=== PATIENT | male | born 1970 | race African-American/Black ===

== ENCOUNTER 2018-12-17 12:54 | Inpatient (IN) | payer OTHER ==
[2018-12-17 15:00] VITALS: BMI 36.2
--- NOTE | 2018-12-17 15:24 | HP ---
CIWA Score Nausea/Vomitin Muscle Tremors: 2 Anxiety: 2 Agitation: 2 Paroxysmal Sweats: 2 Orientation: 1-Uncertain about Date Tacttile Disturbances: 1-Very Mild Itch/Numbness Auditory Disturbances: 1-Very Mild Visual Disturbances: 0-None Headache: 2-Mild CIWA-Ar Total Score: 15 - Admission Criteria OASAS Guidelines: Admission for Medically Managed Detox: Requires at least one of the followin. CIWA greater than 12 2. Seizures within the past 24 hours 3. Delirium tremens within the past 24 hours 4. Hallucinations within the past 24 hours 5. Acute intervention needed for co occurring medical disorder 6. Acute intervention needed for co occurring psychiatric disorder 7. Severe withdrawal that cannot be handled at a lower level of care (continued vomiting, continued diarrhea, abnormal vital signs) requiring intravenous medication and/or fluids 8. Admission ROS [facility] - HPI Chief Complaint: i need help to stop drinking alcohol and cocaine Allergies/Adverse Reactions: Allergies Allergy/AdvReac Type Severity Reaction Status Date / Time No Known Allergies Allergy Verified 12/17/18 14:36 History of Present Illness: this 48 years old male with alcohol and cocaine dependence,seeking detox, withdrawal symptom, last detox in 11/[facility] this morning refer for detox history of hypertension nicotine dependence 1/2 pack,do not want any nicotine replacement syncope alcohol related bipolar disorder,ptsd,last med 1 week ago longest period of sobriety 15 years plan for rehab after detox Exam Limitations: No Limitations - Ebola screening Have you traveled outside of the country in the last 21 days: No Have you had contact with anyone from an Ebola affected area: No - Review of Systems Constitutional: Loss of Appetite, Malaise, Night Sweats, Changes in sleep, Weakness EENT: reports: Nose Congestion Respiratory: reports: No Symptoms reported Cardiac: reports: Palpitations GI: reports: Diarrhea, Nausea, Abdominal cramping : reports: No Symptoms Reported Musculoskeletal: reports: Back Pain, Muscle Pain Integumentary: reports: Dryness Neuro: reports: Headache, Tremors Endocrine: reports: No Symptoms Reported Hematology: reports: No Symptoms Reported Psychiatric: reports: No Sypmtoms Reported, Judgement Intact, Mood/Affect Appropiate, Orientated x3, Depressed, other (bipolar disorder,ptsd) Patient History - Patient Medical History Hx Anemia: No Hx Asthma: No Hx Chronic Obstructive Pulmonary Disease (COPD): No Hx Cancer: No Hx Cardiac Disorders: No Hx Congestive Heart Failure: No Hx Hypertension: Yes (on med) Hx Hypercholesterolemia: No Hx Pacemaker: No HX Cerebrovascular Accident: No Hx Seizures: No Hx Dementia: No Hx Diabetes: No Hx Gastrointestinal Disorders: No Hx Liver Disease: No Hx Genitourinary Disorders: No Hx Sexually Transmitted Disorders: No Hx Renal Disease (ESRD): No Hx Thyroid Disease: No Hx Human Immunodeficiency Virus (HIV): No (last 08/27 negative ) Hx Hepatitis C: No Hx Depression: No Hx Suicide Attempt: Yes (walk infront of the bus) Hx Bipolar Disorder: Yes (no med) Hx Schizophrenia: No Other Medical History: no sucicidal,no homicidal - Patient Surgical History Past Surgical History: No - PPD History Previous Implant?: Yes Documented Results: Negative w/o proof Implanted On Prior [facility] Admission?: No PPD to be Administered?: Yes - Smoking Cessation Smoking history: Current every day smoker Have you smoked in the past 12 months: Yes Aproximately how many cigarettes per day: 10 Cigars Per Day: 0 Hx Chewing Tobacco Use: No Initiated information on smoking cessation: Yes 'Breaking Loose' booklet given: 12/17/18 - Substance & Tx. History Hx Alcohol Use: Yes Hx Substance Use: Yes Hx Substance Use Treatment: Yes (jamee kirby 10/29 ,completed) - Substances abused Cocaine Substance route: Smoking Frequency: Daily Amount used: 7oo$ Age of first use: 27 Date of last use: 12/17/18 Alcohol Substance route: Oral Frequency: Daily Amount used: 2 pints of cognac Age of first use: 14 Date of last use: 12/16/18 Family Disease History - Family Disease History Family History: Denies Admission Physical Exam S - Vital Signs Vital Signs: Vital Signs - 24 hr 12/17/18 12/17/18 14:40 15:13 Temperature 98 F 98 F Pulse Rate 88 88 Respiratory 18 18 Rate Blood Pressure 136/88 136/88 - Physical General Appearance: Yes: Moderate Distress, Tremorous, Irritable, Sweating, Anxious HEENTM: Yes: Normal ENT Inspection, JANEEN, Pharynx Normal Respiratory: Yes: Within Normal Limits, Lungs Clear, Normal Breath Sounds Neck: Yes: Within Normal Limits, Supple, Trachea in good position Breast: Yes: Within Normal Limits Cardiology: Yes: Within Normal Limits, Regular Rhythm, Regular Rate, S1, S2 Abdominal: Yes: Within Normal Limits, Normal Bowel Sounds, Non Tender, Flat, Soft Genitourinary: Yes: Within Normal Limits Back: Yes: Muscle Spasm Extremities: Yes: Within Normal Limits, Normal Range of Motion, Tremors Neurological: Yes: mechanical cad designer II-XII NML intact, Fully Oriented, Motor Strength 5/5 Integumentary: Yes: Dry, Petechiae - Diagnostic (1) Alcohol dependence with uncomplicated withdrawal Current Visit: Yes Status: Acute (2) Cocaine dependence Current Visit: Yes Status: Acute (3) Syncope Current Visit: Yes Status: Acute (4) Nicotine dependence Current Visit: Yes Status: Acute (5) Bipolar disorder Current Visit: Yes Status: Acute (6) PTSD (post-traumatic stress disorder) Current Visit: Yes Status: Acute (7) Chest pain Current Visit: Yes Status: Acute Cleared for Admission S - Detox or Rehab [facility] Level of Care: Medically Managed Detox Regimen/Protocol: Librium Breathalyzer - Breathalyzer Breathalyzer: 0 Urine Drug Screen - Test Device Lot number: [id number] Expiration date: 08/09/20 - Control Is test valid?: Yes - Results Drug screen NEGATIVE: No Urine drug screen results: MALGORZATA-Cocaine, BZO-Benzodiazepines Inpatient Rehab Admission - Rehab Decision to Admit Inpatient rehab admission?: No
[2018-12-17] MEDS ORDERED: MAGNESIUM CITRATE 300 ML BOTTLE PO PRN (15:38)
[2018-12-17] MEDS ORDERED: BISMUTH SUBSALICYLATE 262 MG/15 ML BTL PO PRN (15:38)
[2018-12-17] MEDS ORDERED: hydrOXYzine PAMOATE 25 MG CAPSULE (FP) PO PRN (15:38)
[2018-12-17] MEDS ORDERED: MENTHOL/PHENOL 1 EACH UD MM PRN (15:38)
[2018-12-17] MEDS ORDERED: MAGNESIUM HYDROX 2400MG/30ML ORAL SUSPENSION 30 ML CUP PO PRN (15:38)
[2018-12-17] MEDS ORDERED: MAG HYDROX/AL HYDROX/SIMETH 30 ML UNIT-DOSE CUP PO PRN (15:38)
[2018-12-17] MEDS ORDERED: MELATONIN 5 MG TABLETS PO PRN (15:38)
[2018-12-17] MEDS ORDERED: METHOCARBAMOL 500 MG TABLET PO PRN (15:38)
[2018-12-17] MEDS ORDERED: chlordiazePOXIDE HCL 25 MG CAPSULE PO PRN (15:38)
[2018-12-17] MEDS ORDERED: ACETAMINOPHEN 325 MG TABLET (FP) PO PRN ×2 (15:38)
[2018-12-17] MEDS ORDERED: hydrOXYzine HCL 25 MG TABLET (FP) PO PRN (18:56)
[2018-12-17] MEDS: THIAMINE HCL 100 MG TABLET (FP) PO SCH (22:19)
[2018-12-17] MEDS: chlordiazePOXIDE HCL 25 MG CAPSULE PO SCH (22:20)
[2018-12-18] MEDS: chlordiazePOXIDE HCL 25 MG CAPSULE PO SCH ×4 (05:56→22:57)
[2018-12-18 09:54] LABS: ALBUMIN 3.2 g/dl (3.4-5.0); ALK PHOS 67 U/L (45-117); ANION GAP 6 MMOL/L (8-16); BILIRUBIN,TOTAL 0.3 mg/dL (0.2-1); BLOOD UREA NITROGEN 14 mg/dL (7-18); CALCIUM 8.8 mg/dL (8.5-10.1); CHLORIDE 108 mmol/L (98-107); CO2 28 mmol/L (21-32); CREATININE 0.9 mg/dL (0.55-1.3); GLUCOSE,RANDOM 93 mg/dL (74-106); POTASSIUM 4.2 mmol/L (3.5-5.1); SGOT/AST 19 U/L (15-37); SGPT/ALT 26 U/L (13-61); SODIUM 141 mmol/L (136-145); TOT PROT 6.8 g/dl (6.4-8.2)
[2018-12-18 10:07] LABS: HEMATOCRIT 37.8 % (35.4-49); HEMOGLOBIN 12.4 GM/dL (11.7-16.9); MCH 30.1 pg (25.7-33.7); MCHC 32.8 g/dl (32.0-35.9); MEAN CELL VOLUME 91.7 fl (80-96); MEAN PLT VOLUME 9.1 fl (7.5-11.1); PLATELET COUNT 284 K/MM3 (134-434); RBC 4.12 M/mm3 (4.00-5.60); RDW 14.8 % (11.9-15.9); WHITE BLOOD COUNT 6.6 K/mm3 (4.0-10.0)
[2018-12-18] MEDS: ASPIRIN COATED 81 MG TABLET.EC PO SCH (10:09)
[2018-12-18] MEDS: PRENATAL VITAMINS W/ FOLIC ACID TABLET (FP) PO SCH (10:09)
[2018-12-18 11:16] LABS: SICKLE CELL SCREEN NEGATIVE (NEGATIVE)
--- NOTE | 2018-12-18 13:56 | CONSULT ---
[facility] Psychiatric Consult - Data Date of interview: 12/18/18 Admission source: [facility]
--- NOTE | 2018-12-18 14:32 | PN ---
S CIWA - CIWA Score Nausea/Vomitin-Mild Nausea/No Vomiting Muscle Tremors: 2 Anxiety: 2 Agitation: 2 Paroxysmal Sweats: 1-Minimal Palms Moist Orientation: 1-Uncertain about Date Tacttile Disturbances: 0-None Auditory Disturbances: 0-None Visual Disturbances: 0-None Headache: 2-Mild CIWA-Ar Total Score: 11 S Progress Note (SOAP) Subjective: tremor restlessness but afternoon that the patient can out of bed social with peers in day room Objective: 12/18/18 14:31 Vital Signs Temperature 98.6 F 12/18/18 13:49 Pulse Rate 74 12/18/18 13:49 Respiratory Rate 20 12/18/18 13:49 Blood Pressure 128/86 12/18/18 13:49 O2 Sat by Pulse Oximetry (%) Laboratory Last Values WBC 6.6 K/mm3 (4.0-10.0) 12/18/18 07:00 RBC 4.12 M/mm3 (4.00-5.60) 12/18/18 07:00 Hgb 12.4 GM/dL (11.7-16.9) 12/18/18 07:00 Hct 37.8 % (35.4-49) 12/18/18 07:00 MCV 91.7 fl (80-96) 12/18/18 07:00 MCH 30.1 pg (25.7-33.7) 12/18/18 07:00 MCHC 32.8 g/dl (32.0-35.9) 12/18/18 07:00 RDW 14.8 % (11.9-15.9) 12/18/18 07:00 Plt Count 284 K/MM3 (134-434) 12/18/18 07:00 MPV 9.1 fl (7.5-11.1) 12/18/18 07:00 Sickle Cell Screen Negative (NEGATIVE) 12/18/18 07:00 Sodium 141 mmol/L (136-145) 12/18/18 07:00 Potassium 4.2 mmol/L (3.5-5.1) 12/18/18 07:00 Chloride 108 mmol/L (98-107) H 12/18/18 07:00 Carbon Dioxide 28 mmol/L (21-32) 12/18/18 07:00 Anion Gap 6 MMOL/L (8-16) L 12/18/18 07:00 BUN 14 mg/dL (7-18) 12/18/18 07:00 Creatinine 0.9 mg/dL (0.55-1.3) 12/18/18 07:00 Creat Clearance w eGFR 89.69 (>60) 12/18/18 07:00 Random Glucose 93 mg/dL (74-106) 12/18/18 07:00 Calcium 8.8 mg/dL (8.5-10.1) 12/18/18 07:00 Total Bilirubin 0.3 mg/dL (0.2-1) 12/18/18 07:00 AST 19 U/L (15-37) 12/18/18 07:00 ALT 26 U/L (13-61) 12/18/18 07:00 Alkaline Phosphatase 67 U/L (45-117) 12/18/18 07:00 Total Protein 6.8 g/dl (6.4-8.2) 12/18/18 07:00 Albumin 3.2 g/dl (3.4-5.0) L 12/18/18 07:00 RPR Titer Nonreactive (NONREACTIVE) 12/18/18 07:00 lab noted Assessment: 12/18/18 14:32 withdrawal sx Plan: continue detox
[2018-12-18 16:23] LABS: PH,URINE 5.5 (5.0-8.0); URINE APPEARANCE CLEAR; URINE BILIRUBIN NEGATIVE (NEGATIVE); URINE COLOR YELLOW; URINE GLUCOSE (UA) NEGATIVE (NEGATIVE); URINE KETONE NEGATIVE (NEGATIVE); URINE LEUK ESTERASE NEGATIVE (NEGATIVE); URINE NITRITE NEGATIVE (NEGATIVE); URINE PROTEIN NEGATIVE (NEGATIVE); URINE UROBILINOGEN 0.2 mg/dL (0.2-1.0)
--- NOTE | 2018-12-18 18:44 | CONSULT ---
[facility] Psychiatric Consult - Data Date of interview: 12/18/18 Admission source: [facility] Identifying data: First admission to [facility] for this 48 y/o AA male self- referred for detoxification treatment (alcohol, cocaine). Examined at [address] [place] [address]. Patient is , a father of one, domiciled, unemployed and supported on Public Assistance. Substance Abuse History: Confirmed by the patient in this interview. Details in current [facility] report as follows : Smoking history: Current every day smoker. Have you smoked in the past 12 months: Yes. Aproximately how many cigarettes per day: 10. Cigars Per Day: 0. Hx Chewing Tobacco Use: No. Initiated information on smoking cessation: Yes. 'Breaking Loose' booklet given: . - Substance & Tx. History. Hx Alcohol Use: Yes. Hx Substance Use: Yes. Hx Substance Use Treatment: Yes (jamee kirby 10/29 ,completed). - Substances abused. Cocaine. Substance route: Smoking. Frequency: Daily. Amount used : 7oo$. Age of first use: 27. Date of last use: 12/17/18. Alcohol. Substance route: Oral. Frequency: Daily. Amount used: 2 pints of cognac. Age of first use: 14. Date of last use: 12/16/18 Medical History: Obesity, hypertension and a history of myocardial infarction ( 2016). Psychiatric History: Patient endorses a history of one psychiatric hospitalization years ago at a facility in [facility] (name not recalled by patient). Diagnosed with Bipolar Disorder and PTSD). Mr Wang admits to being prescribed psychotropic medications by [facility] ([address]) in the [place]. Does not recall their names ( review of recent pharmacy claims yield evidence of scripts for depakote 500 mg/ 60 tab/30 days + risperdal 1 mg/60 tab/30 days + trazodone 100 mg/hs/30 tab ( + 12/12/18) at [facility]. Concordant with self-reported diagnosis. Patient denies history of suicide attempts. Physical/Sexual Abuse/Trauma History: Patient declines to discuss this domain. Additional Comment: Urine drug screen results: MALGORZATA-Cocaine, BZO- Benzodiazepines. Noted. Mental Status Exam - Mental Status Exam Alert and Oriented to: Time, Place, Person Cognitive Function: Good Patient Appearance: Unkempt, Disheveled Mood: Nervous, Withdrawn Affect: Mood Congruent, Constricted Patient Behavior: Fatigued, Talkative, Appropriate, Cooperative Speech Pattern: Clear, Appropriate Voice Loudness: Normal Thought Process: Goal Oriented Thought Disorder: Not Present Hallucinations: Denies Suicidal Ideation: Denies Homicidal Ideation: Denies Insight/Judgement: Poor Sleep: Fair Appetite: Good Muscle strength/Tone: Normal Gait/Station: Normal Psychiatric Findings - Problem List ([place] 1, 2,3) (1) Alcohol dependence with uncomplicated withdrawal Current Visit: Yes Status: Acute (2) Cocaine dependence Current Visit: Yes Status: Chronic (3) Nicotine dependence Current Visit: Yes Status: Chronic (4) Bipolar disorder Current Visit: Yes Status: Chronic Comment: As per history (reported by patient). (5) PTSD (post-traumatic stress disorder) Current Visit: Yes Status: Chronic Comment: Self-report. No symptoms elicited. (6) Non-compliance Current Visit: Yes Status: Chronic - Initial Treatment Plan Initial Treatment Plan: Psychoeducation. Sleep hygiene. Support. Detoxification in progress. Resume medications (on 12/19/18) : risperdal 1 mg po bid + depakote 500 mg po bid. Trazodone held. Side effects/benefits of these formulations are discussed with the patient. This includes, in particular, the risk for abnormal involuntary movements, akathisia, tardive dyskinesia, neuroleptic malignant syndrome, galactorrhea, gynecomastia, sexual dysfunction, blood dyscrasias, alteration of liver enzymes, sedation and cardiac adverse events. Mr Wang endorses history of good tolerability to this regimen and he insisits on their insertion in the current medication protocol. Consent (verbal) granted to . Valproic acid level requested. labs reviewed : normal CBC and LFTS. Observation.
[2018-12-18] MEDS: THIAMINE HCL 100 MG TABLET (FP) PO SCH (22:56)
[2018-12-19] MEDS: chlordiazePOXIDE HCL 25 MG CAPSULE PO SCH ×3 (05:27→17:36)
[2018-12-19] MEDS: ASPIRIN COATED 81 MG TABLET.EC PO SCH (10:25)
[2018-12-19] MEDS: risperiDONE 1 MG TABLET (FP) PO SCH ×2 (10:25→22:17)
[2018-12-19] MEDS: DIVALPROEX SODIUM 500 MG TABLET E.C. PO SCH ×2 (10:25→22:17)
[2018-12-19] MEDS: PRENATAL VITAMINS W/ FOLIC ACID TABLET (FP) PO SCH (10:25)
--- NOTE | 2018-12-19 13:27 | PN ---
S CIWA - CIWA Score Nausea/Vomitin-Mild Nausea/No Vomiting Muscle Tremors: 2 Anxiety: 2 Agitation: 1-Slight > Activity Paroxysmal Sweats: 1-Minimal Palms Moist Orientation: 1-Uncertain about Date Tacttile Disturbances: 0-None Auditory Disturbances: 0-None Visual Disturbances: 0-None Headache: 0-None Present CIWA-Ar Total Score: 8 BHS Progress Note (SOAP) Subjective: feeling ok today well-rested social with peers in day room Objective: 12/19/18 13:29 Vital Signs Temperature 96.7 F L 12/19/18 13:17 Pulse Rate 98 H 12/19/18 13:17 Respiratory Rate 18 12/19/18 13:17 Blood Pressure 134/94 12/19/18 13:17 O2 Sat by Pulse Oximetry (%) Laboratory Last Values WBC 6.6 K/mm3 (4.0-10.0) 12/18/18 07:00 RBC 4.12 M/mm3 (4.00-5.60) 12/18/18 07:00 Hgb 12.4 GM/dL (11.7-16.9) 12/18/18 07:00 Hct 37.8 % (35.4-49) 12/18/18 07:00 MCV 91.7 fl (80-96) 12/18/18 07:00 MCH 30.1 pg (25.7-33.7) 12/18/18 07:00 MCHC 32.8 g/dl (32.0-35.9) 12/18/18 07:00 RDW 14.8 % (11.9-15.9) 12/18/18 07:00 Plt Count 284 K/MM3 (134-434) 12/18/18 07:00 MPV 9.1 fl (7.5-11.1) 12/18/18 07:00 Sickle Cell Screen Negative (NEGATIVE) 12/18/18 07:00 Sodium 141 mmol/L (136-145) 12/18/18 07:00 Potassium 4.2 mmol/L (3.5-5.1) 12/18/18 07:00 Chloride 108 mmol/L (98-107) H 12/18/18 07:00 Carbon Dioxide 28 mmol/L (21-32) 12/18/18 07:00 Anion Gap 6 MMOL/L (8-16) L 12/18/18 07:00 BUN 14 mg/dL (7-18) 12/18/18 07:00 Creatinine 0.9 mg/dL (0.55-1.3) 12/18/18 07:00 Creat Clearance w eGFR 89.69 (>60) 12/18/18 07:00 Random Glucose 93 mg/dL (74-106) 12/18/18 07:00 Calcium 8.8 mg/dL (8.5-10.1) 12/18/18 07:00 Total Bilirubin 0.3 mg/dL (0.2-1) 12/18/18 07:00 AST 19 U/L (15-37) 12/18/18 07:00 ALT 26 U/L (13-61) 12/18/18 07:00 Alkaline Phosphatase 67 U/L (45-117) 12/18/18 07:00 Total Protein 6.8 g/dl (6.4-8.2) 12/18/18 07:00 Albumin 3.2 g/dl (3.4-5.0) L 12/18/18 07:00 Urine Color Yellow 12/18/18 10:15 Urine Appearance Clear 12/18/18 10:15 Urine pH 5.5 (5.0-8.0) 12/18/18 10:15 Ur Specific [place] 1.020 (1.010-1.035) 12/18/18 10:15 Urine Protein Negative (NEGATIVE) 12/18/18 10:15 Urine Glucose (UA) Negative (NEGATIVE) 12/18/18 10:15 Urine Ketones Negative (NEGATIVE) 12/18/18 10:15 Urine Blood Negative (NEGATIVE) 12/18/18 10:15 Urine Nitrite Negative (NEGATIVE) 12/18/18 10:15 Urine Bilirubin Negative (NEGATIVE) 12/18/18 10:15 Urine Urobilinogen 0.2 mg/dL (0.2-1.0) 12/18/18 10:15 Ur Leukocyte Esterase Negative (NEGATIVE) 12/18/18 10:15 Valproic Acid 3.6 ug/ml (50-100) L 12/19/18 07:00 RPR Titer Nonreactive (NONREACTIVE) 12/18/18 07:00 lab noted Assessment: 12/19/18 13:30 alcohol withdrawal sx Plan: continue detox
[2018-12-19] MEDS: chlordiazePOXIDE HCL 10 MG CAPSULE PO SCH (22:17)
[2018-12-19] MEDS: THIAMINE HCL 100 MG TABLET (FP) PO SCH (22:17)
[2018-12-19] MEDS ORDERED: chlordiazePOXIDE HCL 10 MG CAPSULE PO PRN (23:00)
[2018-12-20] MEDS: chlordiazePOXIDE HCL 10 MG CAPSULE PO SCH ×3 (05:13→16:28)
[2018-12-20] MEDS: IBUPROFEN 400 MG TABLET (FP) PO PRN ×2 (07:29→16:27)
[2018-12-20] MEDS: DIVALPROEX SODIUM 500 MG TABLET E.C. PO SCH ×2 (10:11→22:28)
[2018-12-20] MEDS: PRENATAL VITAMINS W/ FOLIC ACID TABLET (FP) PO SCH (10:11)
[2018-12-20] MEDS: ASPIRIN COATED 81 MG TABLET.EC PO SCH (10:11)
[2018-12-20] MEDS: risperiDONE 1 MG TABLET (FP) PO SCH ×2 (10:11→22:28)
--- NOTE | 2018-12-20 10:26 | EKG ---
Test Reason : Blood Pressure : / mmHG Vent. Rate : 083 BPM Atrial Rate : 083 BPM P-R Int : 150 ms QRS Dur : 086 ms QT Int : 400 ms P-R-T Axes : 052 -21 006 degrees QTc Int : 470 ms SINUS RHYTHM WITH OCCASIONAL PREMATURE VENTRICULAR COMPLEXES OTHERWISE NORMAL ECG NO PREVIOUS ECGS AVAILABLE Confirmed by YOLANDA STACK, MUKUL ([id number]) on 12/20/2018 10:26:39 AM Referred By: Confirmed By:MUKUL GUERRERO MD
--- NOTE | 2018-12-20 16:40 | PN ---
BHS Progress Note (SOAP) Subjective: Body Aches, Fatigue. Objective: PATIENT A & O X 3. IN NO ACUTE DISTRESS. 12/20/18 16:39 Vital Signs Temperature 96.7 F L 12/20/18 13:10 Pulse Rate 90 12/20/18 13:10 Respiratory Rate 18 12/20/18 13:10 Blood Pressure 142/95 12/20/18 13:10 O2 Sat by Pulse Oximetry (%) Laboratory Tests 12/18/18 12/18/18 12/18/18 07:00 07:00 07:00 WBC 6.6 RBC 4.12 Hgb 12.4 Hct 37.8 MCV 91.7 MCH 30.1 MCHC 32.8 RDW 14.8 Plt Count 284 MPV 9.1 Sickle Cell Screen Negative Sodium 141 Potassium 4.2 Chloride 108 H Carbon Dioxide 28 Anion Gap 6 L BUN 14 Creatinine 0.9 Creat Clearance w eGFR 89.69 Random Glucose 93 Calcium 8.8 Total Bilirubin 0.3 AST 19 ALT 26 Alkaline Phosphatase 67 Total Protein 6.8 Albumin 3.2 L Urine Color Urine Appearance Urine pH Ur Specific [place] Urine Protein Urine Glucose (UA) Urine Ketones Urine Blood Urine Nitrite Urine Bilirubin Urine Urobilinogen Ur Leukocyte Esterase Valproic Acid RPR Titer Nonreactive 12/18/18 12/19/18 10:15 07:00 WBC RBC Hgb Hct MCV MCH MCHC RDW Plt Count MPV Sickle Cell Screen Sodium Potassium Chloride Carbon Dioxide Anion Gap BUN Creatinine Creat Clearance w eGFR Random Glucose Calcium Total Bilirubin AST ALT Alkaline Phosphatase Total Protein Albumin Urine Color Yellow Urine Appearance Clear Urine pH 5.5 Ur Specific [place] 1.020 Urine Protein Negative Urine Glucose (UA) Negative Urine Ketones Negative Urine Blood Negative Urine Nitrite Negative Urine Bilirubin Negative Urine Urobilinogen 0.2 Ur Leukocyte Esterase Negative Valproic Acid 3.6 L RPR Titer LABS NOTED. Assessment: 12/20/18 16:39 WITHDRAWAL SYMPTOMS. Plan: CONTINUE DETOX. PATIENT SCHEDULED FOR D/C TOMORROW.
[2018-12-20] MEDS: THIAMINE HCL 100 MG TABLET (FP) PO SCH (22:28)
[2018-12-20] MEDS ORDERED: chlordiazePOXIDE HCL 10 MG CAPSULE PO SCH (23:00)
[2018-12-21 06:16] VITALS: BP 135/91; PULSE 85; TEMP 96.5
--- NOTE | 2018-12-21 16:19 | DS ---
[facility] Detox Discharge Summary Admission Date: 12/17/18 Discharge Date: 12/21/18 - History Present History: Alcohol Dependence, Cocaine Dependence Additional Comments: PATIENT ELECTING TO RETURN HOME AND WILL ATTEND LOCAL 12-STEP / NA / AA OUTPATIENT SUPPORT GROUP MEETINGS. PATIENT DECLINED OFFER OF MEDICATION PRESCRIPTION FOR HOME MEDICATION AT TIME OF DISCHARGE FROM DETOX, NOTING THAT HE CURRENTLY HAS ADEQUATE SUPPLIES OF ALL PRESCRIBED HOME MEDICATIONS AT HOME. PATIENT WAS DISCHARGED FROM DETOX UNIT IN STABLE MEDICAL CONDITION. Pertinent Past History: HTN, History Of Bipolar Disorder, History Of Syncope, Nicotine Dependence, History Of Post-Traumatic Stress Disorder (P.T.S.D.). - Physical Exam Results Vital Signs: Vital Signs Temperature 96.5 F L 12/21/18 06:15 Pulse Rate 85 12/21/18 06:15 Respiratory Rate 18 12/21/18 06:15 Blood Pressure 135/91 12/21/18 06:15 O2 Sat by Pulse Oximetry (%) Pertinent Admission Physical Exam Findings: WITHDRAWAL SYMPTOMS. Laboratory Tests 12/18/18 12/18/18 12/18/18 07:00 07:00 07:00 WBC 6.6 RBC 4.12 Hgb 12.4 Hct 37.8 MCV 91.7 MCH 30.1 MCHC 32.8 RDW 14.8 Plt Count 284 MPV 9.1 Sickle Cell Screen Negative Sodium 141 Potassium 4.2 Chloride 108 H Carbon Dioxide 28 Anion Gap 6 L BUN 14 Creatinine 0.9 Creat Clearance w eGFR 89.69 Random Glucose 93 Calcium 8.8 Total Bilirubin 0.3 AST 19 ALT 26 Alkaline Phosphatase 67 Total Protein 6.8 Albumin 3.2 L Urine Color Urine Appearance Urine pH Ur Specific [place] Urine Protein Urine Glucose (UA) Urine Ketones Urine Blood Urine Nitrite Urine Bilirubin Urine Urobilinogen Ur Leukocyte Esterase Valproic Acid RPR Titer Nonreactive 12/18/18 12/19/18 10:15 07:00 WBC RBC Hgb Hct MCV MCH MCHC RDW Plt Count MPV Sickle Cell Screen Sodium Potassium Chloride Carbon Dioxide Anion Gap BUN Creatinine Creat Clearance w eGFR Random Glucose Calcium Total Bilirubin AST ALT Alkaline Phosphatase Total Protein Albumin Urine Color Yellow Urine Appearance Clear Urine pH 5.5 Ur Specific [place] 1.020 Urine Protein Negative Urine Glucose (UA) Negative Urine Ketones Negative Urine Blood Negative Urine Nitrite Negative Urine Bilirubin Negative Urine Urobilinogen 0.2 Ur Leukocyte Esterase Negative Valproic Acid 3.6 L RPR Titer LABS NOTED. - Treatment Hospital Course: Detox Protocol Followed, Detoxed Safely, Responded well, Discharged Condition Good Patient has Accepted a Rehab Referral to: PT. WILL ATTEND LOCAL 12-STEP/NA/AA OUTPATIENT SUPPORT GROUP MEETINGS. - Medication Discharge Medications: Ambulatory Orders Aspirin Coated [Ecotrin -] 81 mg PO DAILY 12/17/18 Lisinopril 10 mg PO DAILY 12/17/18 - Diagnosis (1) Alcohol dependence with uncomplicated withdrawal Status: Acute (2) Chest pain Status: Acute Qualifiers: Chest pain type: unspecified Qualified Code(s): R07.9 - Chest pain, unspecified (3) Syncope Status: Acute Qualifiers: Syncope type: unspecified Qualified Code(s): R55 - Syncope and collapse (4) Bipolar disorder Status: Chronic Qualifiers: Active/Remission status: remission status unspecified Qualified Code(s): F31.9 - Bipolar disorder, unspecified (5) Cocaine dependence Status: Chronic Qualifiers: Substance use status: uncomplicated Qualified Code(s): F14.20 - Cocaine dependence, uncomplicated (6) Nicotine dependence Status: Chronic Qualifiers: Nicotine product type: cigarettes Substance use status: uncomplicated Qualified Code(s): F17.210 - Nicotine dependence, cigarettes, uncomplicated (7) Non-compliance Status: Chronic (8) PTSD (post-traumatic stress disorder) Status: Chronic - AMA Did Patient Leave Against Medical Advice: No
== END 2018-12-21 08:37 | disposition home or self-care (01) | DRG 774 ==
LOC: YASAS 12:54 → Y3N 15:40
PROVIDERS: ADMIT Surgery; ATTEND Surgery
PROC: HZ2ZZZZ Detoxification Services for Substance Abuse Treatment (ICD-10-PCS; principal; 2018-12-17)
DX: F10.230 Alcohol dependence with withdrawal, uncomplicated (principal); F14.20 Cocaine dependence, uncomplicated; F17.210 Nicotine dependence, cigarettes, uncomplicated; F31.9 Bipolar disorder, unspecified; F43.10 Post-traumatic stress disorder, unspecified; R07.9 Chest pain, unspecified; I25.2 Old myocardial infarction; E66.9 Obesity, unspecified; Z68.36 Body mass index [BMI] 36.0-36.9, adult; Z91.19 Patient's noncompliance with other medical treatment and regimen; Z91.5 Personal history of self-harm
CPT/HCPCS: 36415; 80053; 80164; 81003; 85027; 85660; 86593; 93005; 93010; J2794

== ENCOUNTER 2019-01-03 15:28 | Inpatient (IN) | payer OTHER ==
[2019-01-03 17:32] VITALS: BMI 40.4
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
[2019-01-03] MEDS ORDERED: MENTHOL/PHENOL 1 EACH UD MM PRN (21:31)
[2019-01-03] MEDS ORDERED: METHOCARBAMOL 500 MG TABLET PO PRN (21:31)
[2019-01-03] MEDS ORDERED: MAGNESIUM HYDROX 2400MG/30ML ORAL SUSPENSION 30 ML CUP PO PRN (21:31)
[2019-01-03] MEDS ORDERED: ACETAMINOPHEN 325 MG TABLET (FP) PO PRN ×2 (21:31)
[2019-01-03] MEDS ORDERED: MELATONIN 5 MG TABLETS PO PRN (21:31)
[2019-01-03] MEDS ORDERED: chlordiazePOXIDE HCL 25 MG CAPSULE PO PRN (21:31)
[2019-01-03] MEDS ORDERED: IBUPROFEN 400 MG TABLET (FP) PO PRN (21:31)
[2019-01-03] MEDS ORDERED: BISMUTH SUBSALICYLATE 524 MG/30 ML UD PO PRN (21:31)
[2019-01-03] MEDS ORDERED: MAG HYDROX/AL HYDROX/SIMETH 30 ML UNIT-DOSE CUP PO PRN (21:31)
[2019-01-03] MEDS ORDERED: MAGNESIUM CITRATE 300 ML BOTTLE PO PRN (21:31)
[2019-01-03] MEDS ORDERED: NICOTINE POLACRILEX 2 MG GUM BUC PRN (21:31)
[2019-01-03] MEDS: chlordiazePOXIDE HCL 25 MG CAPSULE PO SCH (22:20)
[2019-01-03] MEDS: THIAMINE HCL 100 MG TABLET (FP) PO SCH (22:20)
[2019-01-04] MEDS: chlordiazePOXIDE HCL 25 MG CAPSULE PO SCH ×4 (05:38→22:15)
[2019-01-04 10:34] LABS: HEMATOCRIT 34.7 % (35.4-49); HEMOGLOBIN 11.8 GM/dL (11.7-16.9); MCH 30.8 pg (25.7-33.7); MCHC 34.1 g/dl (32.0-35.9); MEAN CELL VOLUME 90.5 fl (80-96); MEAN PLT VOLUME 8.8 fl (7.5-11.1); PLATELET COUNT 299 K/MM3 (134-434); RBC 3.84 M/mm3 (4.00-5.60); RDW 14.4 % (11.9-15.9); WHITE BLOOD COUNT 7.1 K/mm3 (4.0-10.0)
[2019-01-04] MEDS: NICOTINE 14 MG/24 HOURS TOPICAL PATCH TD SCH (10:39)
[2019-01-04] MEDS: PRENATAL VITAMINS W/ FOLIC ACID TABLET (FP) PO SCH (10:39)
[2019-01-04 10:59] LABS: ALBUMIN 3.1 g/dl (3.4-5.0); ALK PHOS 72 U/L (45-117); ANION GAP 8 MMOL/L (8-16); BILIRUBIN,TOTAL 0.3 mg/dL (0.2-1); BLOOD UREA NITROGEN 13 mg/dL (7-18); CALCIUM 8.7 mg/dL (8.5-10.1); CHLORIDE 107 mmol/L (98-107); CO2 28 mmol/L (21-32); CREATININE 0.9 mg/dL (0.55-1.3); GLUCOSE,RANDOM 104 mg/dL (74-106); POTASSIUM 3.8 mmol/L (3.5-5.1); SGOT/AST 22 U/L (15-37); SGPT/ALT 19 U/L (13-61); SODIUM 143 mmol/L (136-145); TOT PROT 6.3 g/dl (6.4-8.2)
--- NOTE | 2019-01-04 12:54 | PN ---
S CIWA - CIWA Score Nausea/Vomitin-No Nausea/No Vomiting Muscle Tremors: 4-Moderate,w/Arms Extend Anxiety: 4-Mod. Anxious/Guarded Agitation: 4-Moderately Restless Paroxysmal Sweats: 3 Orientation: 0-Oriented Tacttile Disturbances: 0-None Auditory Disturbances: 0-None Visual Disturbances: 0-None Headache: 0-None Present CIWA-Ar Total Score: 15 BHS Progress Note (SOAP) Subjective: sweats shakes chills annoying cough acid reflux Objective: 01/04/19 12:53 Vital Signs Temperature 98.1 F 01/04/19 09:40 Pulse Rate 83 01/04/19 09:40 Respiratory Rate 18 01/04/19 09:40 Blood Pressure 122/66 01/04/19 09:40 O2 Sat by Pulse Oximetry (%) Laboratory Tests 01/04/19 01/04/19 01/04/19 05:30 05:30 05:30 WBC 7.1 RBC 3.84 L Hgb 11.8 Hct 34.7 L MCV 90.5 MCH 30.8 MCHC 34.1 RDW 14.4 Plt Count 299 MPV 8.8 Sodium 143 Potassium 3.8 Chloride 107 Carbon Dioxide 28 Anion Gap 8 BUN 13 Creatinine 0.9 Creat Clearance w eGFR 89.69 Random Glucose 104 Calcium 8.7 Total Bilirubin 0.3 AST 22 ALT 19 Alkaline Phosphatase 72 Total Protein 6.3 L Albumin 3.1 L RPR Titer Nonreactive aaox3 ambulating no acute distress Assessment: 01/04/19 12:53 withdrawal sx Plan: continue detox increase fluids mucinex bid ordered z-lanre ordered protonix 40mg daily
[2019-01-04] MEDS ORDERED: PANTOPRAZOLE 40 MG TABLET (FP) PO ONE (13:00)
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
[2019-01-04] MEDS: hydrOXYzine PAMOATE 25 MG CAPSULE (FP) PO PRN (14:57)
[2019-01-04] MEDS: guaiFENesin 600 MG TABLET.ER (FP) PO SCH ×2 (14:58→22:15)
[2019-01-04] MEDS: DIVALPROEX SODIUM 500 MG TABLET E.C. PO SCH (22:15)
[2019-01-04] MEDS: risperiDONE 1 MG TABLET (FP) PO SCH (22:15)
[2019-01-04] MEDS: THIAMINE HCL 100 MG TABLET (FP) PO SCH (22:15)
[2019-01-05] MEDS: chlordiazePOXIDE HCL 25 MG CAPSULE PO SCH ×3 (06:20→18:30)
--- NOTE | 2019-01-05 11:09 | PN ---
S CIWA - CIWA Score Nausea/Vomitin-Mild Nausea/No Vomiting Muscle Tremors: 1-None Visible, but [place] Anxiety: 4-Mod. Anxious/Guarded Agitation: 4-Moderately Restless Paroxysmal Sweats: No Perspiration Orientation: 0-Oriented Tacttile Disturbances: 0-None Auditory Disturbances: 0-None Visual Disturbances: 0-None Headache: 0-None Present CIWA-Ar Total Score: 10 BHS Progress Note (SOAP) Subjective: patient c/o dry cough, mild nausea, anxiety, restlessness Objective: 01/05/19 11:07 Laboratory Tests 01/04/19 01/04/19 01/04/19 05:30 05:30 05:30 WBC 7.1 RBC 3.84 L Hgb 11.8 Hct 34.7 L MCV 90.5 MCH 30.8 MCHC 34.1 RDW 14.4 Plt Count 299 MPV 8.8 Sodium 143 Potassium 3.8 Chloride 107 Carbon Dioxide 28 Anion Gap 8 BUN 13 Creatinine 0.9 Creat Clearance w eGFR 89.69 Random Glucose 104 Calcium 8.7 Total Bilirubin 0.3 AST 22 ALT 19 Alkaline Phosphatase 72 Total Protein 6.3 L Albumin 3.1 L RPR Titer Nonreactive Vital Signs Temperature 97.7 F 01/05/19 09:34 Pulse Rate 88 01/05/19 09:34 Respiratory Rate 18 01/05/19 09:34 Blood Pressure 138/90 01/05/19 09:34 O2 Sat by Pulse Oximetry (%) pe: alert and oriented x 3 skin warm and dry gi soft, nt, nd ext full rom, no visible tremors anxious/restless Assessment: 01/05/19 11:08 withdrawal sx Plan: continue detox encourage fluids robitussin prn monitor clinically
[2019-01-05] MEDS: risperiDONE 1 MG TABLET (FP) PO SCH ×2 (12:19→22:22)
[2019-01-05] MEDS: DIVALPROEX SODIUM 500 MG TABLET E.C. PO SCH ×2 (12:19→22:21)
[2019-01-05] MEDS: guaiFENesin 600 MG TABLET.ER (FP) PO SCH ×2 (12:19→22:21)
[2019-01-05] MEDS: PANTOPRAZOLE 40 MG TABLET (FP) PO SCH (12:19)
[2019-01-05] MEDS: AZITHROMYCIN 250 MG TABLET PO SCH (12:19)
[2019-01-05] MEDS: NICOTINE 14 MG/24 HOURS TOPICAL PATCH TD SCH (12:20)
[2019-01-05] MEDS: PRENATAL VITAMINS W/ FOLIC ACID TABLET (FP) PO SCH (12:20)
[2019-01-05] MEDS: chlordiazePOXIDE HCL 10 MG CAPSULE PO SCH (22:21)
[2019-01-05] MEDS: THIAMINE HCL 100 MG TABLET (FP) PO SCH (22:21)
[2019-01-05] MEDS ORDERED: chlordiazePOXIDE HCL 10 MG CAPSULE PO PRN (23:00)
[2019-01-06] MEDS: chlordiazePOXIDE HCL 10 MG CAPSULE PO SCH ×3 (06:47→18:22)
[2019-01-06] MEDS: AZITHROMYCIN 250 MG TABLET PO SCH (10:27)
[2019-01-06] MEDS: risperiDONE 1 MG TABLET (FP) PO SCH ×2 (10:27→23:21)
[2019-01-06] MEDS: PRENATAL VITAMINS W/ FOLIC ACID TABLET (FP) PO SCH (10:27)
[2019-01-06] MEDS: PANTOPRAZOLE 40 MG TABLET (FP) PO SCH (10:27)
[2019-01-06] MEDS: DIVALPROEX SODIUM 500 MG TABLET E.C. PO SCH ×2 (10:27→23:20)
[2019-01-06] MEDS: NICOTINE 14 MG/24 HOURS TOPICAL PATCH TD SCH (10:28)
[2019-01-06] MEDS: guaiFENesin 600 MG TABLET.ER (FP) PO SCH ×2 (10:29→23:21)
--- NOTE | 2019-01-06 15:51 | PN ---
S CIWA - CIWA Score Nausea/Vomitin-No Nausea/No Vomiting Muscle Tremors: 2 Anxiety: 3 Agitation: 2 Paroxysmal Sweats: 3 Orientation: 0-Oriented Tacttile Disturbances: 0-None Auditory Disturbances: 0-None Visual Disturbances: 1-Very Mild Sensitivity Headache: 0-None Present CIWA-Ar Total Score: 11 BHS Progress Note (SOAP) Subjective: Sweating, Tremors, Anxious. Patient Reports That Current withdrawal / Detox Symptoms are gradually subsiding in severity. Objective: PATIENT A & O X 3, OBSERVED AMBULATING ON UNIT UNASSISTED. IN NO ACUTE DISTRESS. 01/06/19 15:52 Vital Signs Temperature 98.4 F 01/06/19 13:17 Pulse Rate 122 H 01/06/19 13:17 Respiratory Rate 18 01/06/19 13:17 Blood Pressure 130/87 01/06/19 13:17 O2 Sat by Pulse Oximetry (%) Laboratory Tests 01/04/19 01/04/19 01/04/19 05:30 05:30 05:30 WBC 7.1 RBC 3.84 L Hgb 11.8 Hct 34.7 L MCV 90.5 MCH 30.8 MCHC 34.1 RDW 14.4 Plt Count 299 MPV 8.8 Sodium 143 Potassium 3.8 Chloride 107 Carbon Dioxide 28 Anion Gap 8 BUN 13 Creatinine 0.9 Creat Clearance w eGFR 89.69 Random Glucose 104 Calcium 8.7 Total Bilirubin 0.3 AST 22 ALT 19 Alkaline Phosphatase 72 Total Protein 6.3 L Albumin 3.1 L Valproic Acid RPR Titer Nonreactive 01/05/19 07:00 WBC RBC Hgb Hct MCV MCH MCHC RDW Plt Count MPV Sodium Potassium Chloride Carbon Dioxide Anion Gap BUN Creatinine Creat Clearance w eGFR Random Glucose Calcium Total Bilirubin AST ALT Alkaline Phosphatase Total Protein Albumin Valproic Acid 3.9 L RPR Titer LABS NOTED. Assessment: 01/06/19 15:52 WITHDRAWAL SYMPTOMS. Plan: CONTINUE DETOX.
[2019-01-06 21:54] VITALS: BP 121/91; PULSE 98; TEMP 97.3
[2019-01-06] MEDS ORDERED: chlordiazePOXIDE HCL 10 MG CAPSULE PO SCH (23:00)
[2019-01-06] MEDS: THIAMINE HCL 100 MG TABLET (FP) PO SCH (23:20)
[2019-01-06] MEDS: hydrOXYzine PAMOATE 25 MG CAPSULE (FP) PO PRN (23:20)
--- NOTE | 2019-01-07 16:14 | DS ---
[facility] Detox Discharge Summary Admission Date: 01/03/19 Discharge Date: 01/07/19 - History Present History: Alcohol Dependence, Cocaine Dependence Additional Comments: PATIENT GOING HOME TO ATTEND TO PERSONAL AFFAIRS, THEN WILL APPLY FOR ADMISSION. TO [facility]. PATIENT ASLO ADVISED TO CONSIDER LOCAL 12-STEP / NA / AA OUTPATIENT SUPPORT GROUP MEETINGS IN HIS LOCAL AREA FOR AFTERCARE. PRESCRIPTION FOR REMAINDER OF ANTIBIOTIC (AZITHROMYCIN / Z- PACK) STARTED FOR UPPER RESPIRATORY INFECTION WHILE PATIENT WAS ADMITTED ON DETOX UNIT SENT TO PATIENT'S PHARMACY ([facility], [place], [place]) FOR AFTERCARE. PATIENT WAS ADVISED TO COMPLETE FULL COURSE OF ANTIBIOTIC AND TO FOLLOW-UP WITH HIS RACING CAR DRIVER FOR FURTHER EVALUATION OF UPPER RESPIRATORY INFECTION WHEN POSSIBLE AFTER DISCHARGE FROM DETOX UNIT. PATIENT VERBALIZED UNDERSTANDING OF ALL RECOMMENDATIONS PRESENTED TO HIM AT TIME OF DISCHARGE FROM DETOX UNIT. PATIENT DECLINED OFFER OF MEDICATION PRESCRIPTION FOR PREVIOUSLY PRESCRIBED HOME MEDICATIONS AT TIME OF DISCHARGE FROM DETOX, NOTING THAT HE CURRENTLY HAS ADEQUATE SUPPLIES OF ALL PRESCRIBED HOME MEDICATIONS AT HOME. PATIENT WAS DISCHARGED FROM DETOX UNIT IN STABLE MEDICAL CONDITION. Pertinent Past History: Nicotine Dependence, HTN, History Of Seizure, Anxiety, Depression, History Of Bipolar Disorder, History Of Post-Traumatic Stress Disorder (P.T.S.D.). - Physical Exam Results Vital Signs: Vital Signs Temperature 97.3 F L 01/06/19 21:52 Pulse Rate 98 H 01/06/19 21:52 Respiratory Rate 18 01/07/19 03:30 Blood Pressure 121/91 01/06/19 21:52 O2 Sat by Pulse Oximetry (%) Pertinent Admission Physical Exam Findings: WITHDRAWAL SYMPTOMS. Laboratory Tests 01/04/19 01/04/19 01/04/19 05:30 05:30 05:30 WBC 7.1 RBC 3.84 L Hgb 11.8 Hct 34.7 L MCV 90.5 MCH 30.8 MCHC 34.1 RDW 14.4 Plt Count 299 MPV 8.8 Sodium 143 Potassium 3.8 Chloride 107 Carbon Dioxide 28 Anion Gap 8 BUN 13 Creatinine 0.9 Creat Clearance w eGFR 89.69 Random Glucose 104 Calcium 8.7 Total Bilirubin 0.3 AST 22 ALT 19 Alkaline Phosphatase 72 Total Protein 6.3 L Albumin 3.1 L Valproic Acid RPR Titer Nonreactive 01/05/19 07:00 WBC RBC Hgb Hct MCV MCH MCHC RDW Plt Count MPV Sodium Potassium Chloride Carbon Dioxide Anion Gap BUN Creatinine Creat Clearance w eGFR Random Glucose Calcium Total Bilirubin AST ALT Alkaline Phosphatase Total Protein Albumin Valproic Acid 3.9 L RPR Titer LABS NOTED. - Treatment Hospital Course: Detox Protocol Followed, Detoxed Safely, Responded well, Discharged Condition Good, Rehab Referral Accepted Patient has Accepted a Rehab Referral to: PT. [facility]. - Medication Discharge Medications: Ambulatory Orders Aspirin Coated [Ecotrin -] 81 mg PO DAILY 12/17/18 Lisinopril 10 mg PO DAILY 12/17/18 Azithromycin 250 mg PO DAILY 3 Days #3 tablet 01/06/19 Divalproex [Depakote -] 500 mg PO BID #30 tablet.ec 01/07/19 Risperidone [Risperdal] 1 mg PO BID #30 tablet 01/07/19 - Diagnosis (1) Alcohol dependence with uncomplicated withdrawal Status: Acute (2) Cocaine dependence Status: Chronic Qualifiers: Substance use status: uncomplicated Qualified Code(s): F14.20 - Cocaine dependence, uncomplicated (3) Nicotine dependence Status: Chronic Qualifiers: Nicotine product type: cigarettes Substance use status: uncomplicated Qualified Code(s): F17.210 - Nicotine dependence, cigarettes, uncomplicated (4) Hypertension Status: Chronic Qualifiers: Hypertension type: essential hypertension Qualified Code(s): I10 - Essential (primary) hypertension (5) Anxiety Status: Chronic (6) Seizure Status: Chronic (7) Depression Status: Chronic Qualifiers: Depression Type: unspecified Qualified Code(s): F32.9 - Major depressive disorder, single episode, unspecified (8) Bipolar disorder Status: Chronic Qualifiers: Active/Remission status: remission status unspecified Qualified Code(s): F31.9 - Bipolar disorder, unspecified (9) Non-compliance Status: Chronic (10) PTSD (post-traumatic stress disorder) Status: Chronic - AMA Did Patient Leave Against Medical Advice: No
== END 2019-01-07 09:05 | disposition home or self-care (01) | DRG 774 ==
LOC: YASAS 15:28 → Y6N 21:41
PROVIDERS: ADMIT Surgery; ATTEND Surgery
PROC: HZ2ZZZZ Detoxification Services for Substance Abuse Treatment (ICD-10-PCS; principal; 2019-01-03)
DX: F10.230 Alcohol dependence with withdrawal, uncomplicated (principal); F14.20 Cocaine dependence, uncomplicated; F17.210 Nicotine dependence, cigarettes, uncomplicated; F31.9 Bipolar disorder, unspecified; F41.8 Other specified anxiety disorders; F32.9 Major depressive disorder, single episode, unspecified; F43.10 Post-traumatic stress disorder, unspecified; I25.10 Atherosclerotic heart disease of native coronary artery without angina pectoris; I25.2 Old myocardial infarction; I10 Essential (primary) hypertension; Z91.5 Personal history of self-harm; Z91.19 Patient's noncompliance with other medical treatment and regimen
CPT/HCPCS: 36415; 80053; 80164; 85027; 86593; J2794

== ENCOUNTER 2019-05-20 12:06 | Inpatient (IN) | payer OTHER ==
[2019-05-20 15:49] VITALS: BMI 39.7
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
[2019-05-20] MEDS ORDERED: MAGNESIUM HYDROX 2400MG/30ML ORAL SUSPENSION 30 ML CUP PO PRN (17:00)
[2019-05-20] MEDS ORDERED: ACETAMINOPHEN 325 MG TABLET (FP) PO PRN ×2 (17:00)
[2019-05-20] MEDS ORDERED: MENTHOL/PHENOL 1 EACH UD MM PRN (17:00)
[2019-05-20] MEDS ORDERED: hydrOXYzine PAMOATE 25 MG CAPSULE (FP) PO PRN (17:00)
[2019-05-20] MEDS ORDERED: BISMUTH SUBSALICYLATE 524 MG/30 ML UD PO PRN (17:00)
[2019-05-20] MEDS ORDERED: MAGNESIUM CITRATE 300 ML BOTTLE PO PRN (17:00)
[2019-05-20] MEDS ORDERED: IBUPROFEN 400 MG TABLET (FP) PO PRN (17:00)
[2019-05-20] MEDS ORDERED: METHOCARBAMOL 500 MG TABLET PO PRN (17:00)
[2019-05-20] MEDS ORDERED: MAG HYDROX/AL HYDROX/SIMETH 30 ML UNIT-DOSE CUP PO PRN (17:00)
[2019-05-20] MEDS ORDERED: NICOTINE POLACRILEX 2 MG GUM BUC PRN (17:00)
[2019-05-20] MEDS ORDERED: chlordiazePOXIDE HCL 10 MG CAPSULE PO PRN (17:02)
[2019-05-20] MEDS: ASPIRIN COATED 81 MG TABLET.EC PO SCH (18:18)
[2019-05-20] MEDS: LISINOPRIL 10 MG TABLET (FP) PO SCH (18:18)
[2019-05-20] MEDS: ATORVASTATIN CA 40 MG TABLET (FP) PO SCH (21:14)
[2019-05-20] MEDS: METOPROLOL TARTRATE 50 MG TABLET (FP) PO SCH (21:14)
[2019-05-20] MEDS: RANITIDINE HCL 150 MG TABLET (FP) PO SCH (21:14)
[2019-05-20] MEDS: THIAMINE HCL 100 MG TABLET (FP) PO SCH (21:15)
[2019-05-20] MEDS: chlordiazePOXIDE HCL 25 MG CAPSULE PO SCH (21:15)
[2019-05-21] MEDS: chlordiazePOXIDE HCL 25 MG CAPSULE PO SCH ×3 (06:01→21:54)
[2019-05-21] MEDS ORDERED: PNEUMOC 13-VAL CONJ-DIP CRM/PF 0.5 ML DISP.SYRIN IM ONE (10:40)
[2019-05-21] MEDS: PRENATAL VITAMINS W/ FOLIC ACID TABLET (FP) PO SCH (10:50)
[2019-05-21] MEDS: METOPROLOL TARTRATE 50 MG TABLET (FP) PO SCH ×2 (10:51→21:54)
[2019-05-21] MEDS: RANITIDINE HCL 150 MG TABLET (FP) PO SCH ×2 (10:51→21:54)
[2019-05-21] MEDS: LISINOPRIL 10 MG TABLET (FP) PO SCH (10:51)
[2019-05-21] MEDS: ASPIRIN COATED 81 MG TABLET.EC PO SCH (10:51)
[2019-05-21] MEDS ORDERED: PNEUMOCOCCAL 23 VACCINE 0.5 ML VIAL IM ONE (12:00)
[2019-05-21 12:24] LABS: HEMATOCRIT 37.6 % (35.4-49); HEMOGLOBIN 12.5 GM/dL (11.7-16.9); MCH 29.7 pg (25.7-33.7); MCHC 33.2 g/dl (32.0-35.9); MEAN CELL VOLUME 89.5 fl (80-96); MEAN PLT VOLUME 8.9 fl (7.5-11.1); PLATELET COUNT 292 K/MM3 (134-434); RDW 14.9 % (11.9-15.9)
[2019-05-21 12:48] LABS: ALBUMIN 3.1 g/dl (3.4-5.0); BILIRUBIN,TOTAL 0.2 mg/dL (0.2-1); BLOOD UREA NITROGEN 11.4 mg/dL (7-18); CALCIUM 8.8 mg/dL (8.5-10.1); POTASSIUM 3.9 mmol/L (3.5-5.1); TOT PROT 6.4 g/dl (6.4-8.2)
--- NOTE | 2019-05-21 15:31 | PN ---
[facility] CIWA - CIWA Score Nausea/Vomitin-Mild Nausea/No Vomiting Muscle Tremors: 4-Moderate,w/Arms Extend Anxiety: 3 Agitation: 2 Paroxysmal Sweats: 2 Orientation: 1-Uncertain about Date (to date of the week) Tacttile Disturbances: 1-Very Mild Itch/Numbness Auditory Disturbances: 0-None Visual Disturbances: 0-None Headache: 1-Very Mild CIWA-Ar Total Score: 15 S Progress Note (SOAP) Subjective: 48 years old male admitted on 05/20/19 for alcohol withdrawal sx management doing well with librum detox regimen long history of knees arthritits cane provided as ambulate aid Objective: 05/21/19 15:30 Vital Signs Temperature 98.1 F 05/21/19 13:40 Pulse Rate 70 05/21/19 13:40 Respiratory Rate 18 05/21/19 13:40 Blood Pressure 123/80 05/21/19 13:40 O2 Sat by Pulse Oximetry (%) Laboratory Last Values WBC 6.0 K/mm3 (4.0-10.0) 05/21/19 09:00 RBC 4.20 M/mm3 (4.00-5.60) 05/21/19 09:00 Hgb 12.5 GM/dL (11.7-16.9) 05/21/19 09:00 Hct 37.6 % (35.4-49) 05/21/19 09:00 MCV 89.5 fl (80-96) 05/21/19 09:00 MCH 29.7 pg (25.7-33.7) 05/21/19 09:00 MCHC 33.2 g/dl (32.0-35.9) 05/21/19 09:00 RDW 14.9 % (11.9-15.9) 05/21/19 09:00 Plt Count 292 K/MM3 (134-434) 05/21/19 09:00 MPV 8.9 fl (7.5-11.1) 05/21/19 09:00 Sodium 144 mmol/L (136-145) 05/21/19 09:00 Potassium 3.9 mmol/L (3.5-5.1) 05/21/19 09:00 Chloride 111 mmol/L (98-107) H 05/21/19 09:00 Carbon Dioxide 26 mmol/L (21-32) 05/21/19 09:00 Anion Gap 7 MMOL/L (8-16) L 05/21/19 09:00 BUN 11.4 mg/dL (7-18) 05/21/19 09:00 Creatinine 1.0 mg/dL (0.55-1.3) 05/21/19 09:00 Est GFR (CKD-EPI)AfAm 101.98 05/21/19 09:00 Est GFR (CKD-EPI)NonAf 87.99 05/21/19 09:00 Random Glucose 101 mg/dL (74-106) 05/21/19 09:00 Calcium 8.8 mg/dL (8.5-10.1) 05/21/19 09:00 Total Bilirubin 0.2 mg/dL (0.2-1) 05/21/19 09:00 AST 31 U/L (15-37) 05/21/19 09:00 ALT 35 U/L (13-61) 05/21/19 09:00 Alkaline Phosphatase 66 U/L (45-117) 05/21/19 09:00 Total Protein 6.4 g/dl (6.4-8.2) 05/21/19 09:00 Albumin 3.1 g/dl (3.4-5.0) L 05/21/19 09:00 RPR Titer Nonreactive (NONREACTIVE) 05/21/19 09:00 lab noted Assessment: 05/21/19 15:30 alcohol withdrawal sx Plan: continue librium detox regimen
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
[2019-05-21] MEDS: ATORVASTATIN CA 40 MG TABLET (FP) PO SCH (21:54)
[2019-05-21] MEDS: risperiDONE 1 MG TABLET (FP) PO SCH (21:54)
[2019-05-21] MEDS: DIVALPROEX SODIUM 500 MG TABLET E.C. PO SCH (21:54)
[2019-05-21] MEDS: THIAMINE HCL 100 MG TABLET (FP) PO SCH (21:54)
[2019-05-21] MEDS: MELATONIN 5 MG TABLETS PO PRN (21:55)
[2019-05-22] MEDS: chlordiazePOXIDE 5 MG CAPSULE PO SCH ×3 (06:07→22:07)
[2019-05-22] MEDS: risperiDONE 1 MG TABLET (FP) PO SCH ×2 (10:36→22:08)
[2019-05-22] MEDS: RANITIDINE HCL 150 MG TABLET (FP) PO SCH ×2 (10:36→22:08)
[2019-05-22] MEDS: ASPIRIN COATED 81 MG TABLET.EC PO SCH (10:36)
[2019-05-22] MEDS: LISINOPRIL 10 MG TABLET (FP) PO SCH (10:36)
[2019-05-22] MEDS: METOPROLOL TARTRATE 50 MG TABLET (FP) PO SCH ×2 (10:36→22:08)
[2019-05-22] MEDS: DIVALPROEX SODIUM 500 MG TABLET E.C. PO SCH ×2 (10:37→22:08)
[2019-05-22] MEDS: PRENATAL VITAMINS W/ FOLIC ACID TABLET (FP) PO SCH (10:37)
--- NOTE | 2019-05-22 13:32 | PN ---
S CIWA - CIWA Score Nausea/Vomitin Muscle Tremors: 2 Anxiety: 2 Agitation: 2 Paroxysmal Sweats: No Perspiration Orientation: 0-Oriented Tacttile Disturbances: 0-None Auditory Disturbances: 0-None Visual Disturbances: 0-None Headache: 2-Mild CIWA-Ar Total Score: 10 BHS Progress Note (SOAP) Subjective: alert,irritable,anxious,interrupted sleep,tremor,pain in the body Objective: 05/22/19 13:31 Vital Signs Temperature 96.3 F L 05/22/19 13:24 Pulse Rate 68 05/22/19 13:24 Respiratory Rate 18 05/22/19 13:24 Blood Pressure 137/92 05/22/19 13:24 O2 Sat by Pulse Oximetry (%) Laboratory Last Values WBC 6.0 K/mm3 (4.0-10.0) 05/21/19 09:00 RBC 4.20 M/mm3 (4.00-5.60) 05/21/19 09:00 Hgb 12.5 GM/dL (11.7-16.9) 05/21/19 09:00 Hct 37.6 % (35.4-49) 05/21/19 09:00 MCV 89.5 fl (80-96) 05/21/19 09:00 MCH 29.7 pg (25.7-33.7) 05/21/19 09:00 MCHC 33.2 g/dl (32.0-35.9) 05/21/19 09:00 RDW 14.9 % (11.9-15.9) 05/21/19 09:00 Plt Count 292 K/MM3 (134-434) 05/21/19 09:00 MPV 8.9 fl (7.5-11.1) 05/21/19 09:00 Sodium 144 mmol/L (136-145) 05/21/19 09:00 Potassium 3.9 mmol/L (3.5-5.1) 05/21/19 09:00 Chloride 111 mmol/L (98-107) H 05/21/19 09:00 Carbon Dioxide 26 mmol/L (21-32) 05/21/19 09:00 Anion Gap 7 MMOL/L (8-16) L 05/21/19 09:00 BUN 11.4 mg/dL (7-18) 05/21/19 09:00 Creatinine 1.0 mg/dL (0.55-1.3) 05/21/19 09:00 Est GFR (CKD-EPI)AfAm 101.98 05/21/19 09:00 Est GFR (CKD-EPI)NonAf 87.99 05/21/19 09:00 Random Glucose 101 mg/dL (74-106) 05/21/19 09:00 Calcium 8.8 mg/dL (8.5-10.1) 05/21/19 09:00 Total Bilirubin 0.2 mg/dL (0.2-1) 05/21/19 09:00 AST 31 U/L (15-37) 05/21/19 09:00 ALT 35 U/L (13-61) 05/21/19 09:00 Alkaline Phosphatase 66 U/L (45-117) 05/21/19 09:00 Total Protein 6.4 g/dl (6.4-8.2) 05/21/19 09:00 Albumin 3.1 g/dl (3.4-5.0) L 05/21/19 09:00 Valproic Acid 4.1 ug/mL (50-100) L 05/22/19 08:00 RPR Titer Nonreactive (NONREACTIVE) 05/21/19 09:00 Assessment: 05/22/19 13:32 withdrawal symptom Plan: continue detox librium regimen
[2019-05-22] MEDS: THIAMINE HCL 100 MG TABLET (FP) PO SCH (22:08)
[2019-05-22] MEDS: ATORVASTATIN CA 40 MG TABLET (FP) PO SCH (22:08)
[2019-05-22] MEDS: MELATONIN 5 MG TABLETS PO PRN (22:10)
[2019-05-23] MEDS ORDERED: chlordiazePOXIDE HCL 10 MG CAPSULE PO PRN
[2019-05-23] MEDS: chlordiazePOXIDE HCL 10 MG CAPSULE PO SCH ×3 (05:11→22:21)
[2019-05-23] MEDS: PRENATAL VITAMINS W/ FOLIC ACID TABLET (FP) PO SCH (10:57)
[2019-05-23] MEDS: ASPIRIN COATED 81 MG TABLET.EC PO SCH (10:57)
[2019-05-23] MEDS: risperiDONE 1 MG TABLET (FP) PO SCH ×2 (10:57→22:21)
[2019-05-23] MEDS: LISINOPRIL 10 MG TABLET (FP) PO SCH (10:57)
[2019-05-23] MEDS: METOPROLOL TARTRATE 50 MG TABLET (FP) PO SCH ×2 (10:57→22:21)
[2019-05-23] MEDS: DIVALPROEX SODIUM 500 MG TABLET E.C. PO SCH ×2 (10:57→22:20)
[2019-05-23] MEDS: RANITIDINE HCL 150 MG TABLET (FP) PO SCH ×2 (10:57→22:21)
[2019-05-23] MEDS: METHYL SALICYLATE/MENTHOL OINT 30 GM TUBE TP SCH ×2 (10:58→22:21)
--- NOTE | 2019-05-23 17:31 | PN ---
S CIWA - CIWA Score Nausea/Vomitin-No Nausea/No Vomiting Muscle Tremors: None Anxiety: 3 Agitation: 1-Slight > Activity Paroxysmal Sweats: 3 Orientation: 0-Oriented Tacttile Disturbances: 1-Very Mild Itch/Numbness Auditory Disturbances: 0-None Visual Disturbances: 1-Very Mild Sensitivity Headache: 0-None Present CIWA-Ar Total Score: 9 BHS Progress Note (SOAP) Subjective: Sweating, Body Aches, Diarrhea. Objective: PATIENT A & O X 3, OBSERVED AMBULATING ON DETOX UNIT UNASSISTED. IN NO ACUTE DISTRESS. 05/23/19 17:30 Vital Signs Temperature 97.2 F L 05/23/19 13:12 Pulse Rate 75 05/23/19 13:12 Respiratory Rate 18 05/23/19 13:12 Blood Pressure 155/89 05/23/19 13:12 O2 Sat by Pulse Oximetry (%) Laboratory Tests 05/21/19 05/21/19 05/21/19 09:00 09:00 09:00 WBC 6.0 RBC 4.20 Hgb 12.5 Hct 37.6 MCV 89.5 MCH 29.7 MCHC 33.2 RDW 14.9 Plt Count 292 MPV 8.9 Sodium 144 Potassium 3.9 Chloride 111 H Carbon Dioxide 26 Anion Gap 7 L BUN 11.4 Creatinine 1.0 Est GFR (CKD-EPI)AfAm 101.98 Est GFR (CKD-EPI)NonAf 87.99 Random Glucose 101 Calcium 8.8 Total Bilirubin 0.2 AST 31 ALT 35 Alkaline Phosphatase 66 Total Protein 6.4 Albumin 3.1 L Valproic Acid RPR Titer Nonreactive 05/22/19 08:00 WBC RBC Hgb Hct MCV MCH MCHC RDW Plt Count MPV Sodium Potassium Chloride Carbon Dioxide Anion Gap BUN Creatinine Est GFR (CKD-EPI)AfAm Est GFR (CKD-EPI)NonAf Random Glucose Calcium Total Bilirubin AST ALT Alkaline Phosphatase Total Protein Albumin Valproic Acid 4.1 L RPR Titer LABS NOTED. Assessment: 05/23/19 17:32 WITHDRAWAL SYMPTOMS. Plan: CONTINUE DETOX. INCREASE DAILY PO WATER INTAKE. PRN IMODIUM PO FOR DIARRHEA. PATIENT SCHEDULED FOR D/C FROM DETOX UNIT TOMORROW.
[2019-05-23] MEDS ORDERED: LOPERAMIDE HCL 2 MG CAPSULE PO PRN (17:33)
[2019-05-23 21:05] VITALS: PULSE 77
[2019-05-23] MEDS: MELATONIN 5 MG TABLETS PO PRN (22:21)
[2019-05-23] MEDS: THIAMINE HCL 100 MG TABLET (FP) PO SCH (22:21)
[2019-05-23] MEDS: ATORVASTATIN CA 40 MG TABLET (FP) PO SCH (22:21)
[2019-05-24] MEDS ORDERED: chlordiazePOXIDE HCL 10 MG CAPSULE PO ONE (05:00)
[2019-05-24 09:34] VITALS: BP 140/96; TEMP 97.7
--- NOTE | 2019-05-24 18:46 | DS ---
[facility] Detox Discharge Summary Admission Date: 05/20/19 Discharge Date: 05/24/19 - History Present History: Alcohol Dependence, Cocaine Dependence Additional Comments: PATIENT REFERRED TO [facility] ([place], [place]) FOR AFTERCARE. PATIENT WAS DISCHARGED FROM DETOX UNIT IN STABLE MEDICAL CONDITION. Pertinent Past History: HTN, History Of Seizures, Bipolar Disorder, Nicotine Dependence, Hyperlipidemia , Post-Traumatic Stress Disorder. - Physical Exam Results Vital Signs: Vital Signs Temperature 97.7 F 05/24/19 09:00 Pulse Rate 77 05/24/19 09:00 Respiratory Rate 20 05/24/19 09:00 Blood Pressure 140/96 05/24/19 09:00 O2 Sat by Pulse Oximetry (%) Pertinent Admission Physical Exam Findings: WITHDRAWAL SYMPTOMS. Laboratory Tests 05/21/19 05/21/19 05/21/19 09:00 09:00 09:00 WBC 6.0 RBC 4.20 Hgb 12.5 Hct 37.6 MCV 89.5 MCH 29.7 MCHC 33.2 RDW 14.9 Plt Count 292 MPV 8.9 Sodium 144 Potassium 3.9 Chloride 111 H Carbon Dioxide 26 Anion Gap 7 L BUN 11.4 Creatinine 1.0 Est GFR (CKD-EPI)AfAm 101.98 Est GFR (CKD-EPI)NonAf 87.99 Random Glucose 101 Calcium 8.8 Total Bilirubin 0.2 AST 31 ALT 35 Alkaline Phosphatase 66 Total Protein 6.4 Albumin 3.1 L Valproic Acid RPR Titer Nonreactive 05/22/19 08:00 WBC RBC Hgb Hct MCV MCH MCHC RDW Plt Count MPV Sodium Potassium Chloride Carbon Dioxide Anion Gap BUN Creatinine Est GFR (CKD-EPI)AfAm Est GFR (CKD-EPI)NonAf Random Glucose Calcium Total Bilirubin AST ALT Alkaline Phosphatase Total Protein Albumin Valproic Acid 4.1 L RPR Titer LABS NOTED. - Treatment Hospital Course: Detox Protocol Followed, Detoxed Safely, Responded well, Discharged Condition Good, Rehab Referral Accepted Patient has Accepted a Rehab Referral to: [facility] ([place], [place]). - Medication Discharge Medications: Ambulatory Orders Aspirin Coated [Ecotrin -] 81 mg PO DAILY 12/17/18 Lisinopril 10 mg PO DAILY 12/17/18 Divalproex [Depakote -] 500 mg PO BID #30 tablet.ec 01/07/19 Risperidone [Risperdal] 1 mg PO BID #30 tablet 01/07/19 Atorvastatin Ca [Lipitor] 40 mg PO DAILY 05/20/19 Metoprolol Tartrate [Lopressor -] 50 mg PO BID 05/20/19 Ranitidine HCl [Zantac] 150 mg PO BID 05/20/19 - Diagnosis (1) Alcohol dependence with uncomplicated withdrawal Status: Acute (2) Cocaine dependence Status: Chronic Qualifiers: Substance use status: uncomplicated Qualified Code(s): F14.20 - Cocaine dependence, uncomplicated (3) Nicotine dependence Status: Chronic Qualifiers: Nicotine product type: cigarettes Substance use status: uncomplicated Qualified Code(s): F17.210 - Nicotine dependence, cigarettes, uncomplicated (4) Bipolar disorder Status: Chronic Qualifiers: Active/Remission status: remission status unspecified Qualified Code(s): F31.9 - Bipolar disorder, unspecified (5) Non-compliance Status: Chronic (6) PTSD (post-traumatic stress disorder) Status: Chronic (7) Substance induced mood disorder Status: Chronic - AMA Did Patient Leave Against Medical Advice: No BHS CIWA - CIWA Score Nausea/Vomitin-No Nausea/No Vomiting Muscle Tremors: None Anxiety: 1-Mildly Anxious Agitation: 2 Paroxysmal Sweats: No Perspiration Orientation: 0-Oriented Tacttile Disturbances: 0-None Auditory Disturbances: 0-None Visual Disturbances: 0-None Headache: 0-None Present CIWA-Ar Total Score: 3
== END 2019-05-24 09:08 | disposition home or self-care (01) | DRG 774 ==
LOC: YASAS 12:06 → Y3N 17:39
PROVIDERS: ADMIT Surgery; ATTEND Surgery
PROC: HZ2ZZZZ Detoxification Services for Substance Abuse Treatment (ICD-10-PCS; principal; 2019-05-20)
DX: F10.230 Alcohol dependence with withdrawal, uncomplicated (principal); F14.20 Cocaine dependence, uncomplicated; F17.210 Nicotine dependence, cigarettes, uncomplicated; F19.24 Other psychoactive substance dependence with psychoactive substance-induced mood disorder; F31.9 Bipolar disorder, unspecified; F43.10 Post-traumatic stress disorder, unspecified; I10 Essential (primary) hypertension; E78.5 Hyperlipidemia, unspecified; Z86.69 Personal history of other diseases of the nervous system and sense organs; Z91.5 Personal history of self-harm; Z91.19 Patient's noncompliance with other medical treatment and regimen
CPT/HCPCS: 36415; 80053; 80164; 85027; 86593; J2794

== ENCOUNTER 2020-04-14 12:34 | Inpatient (IN) | payer OTHER ==
--- NOTE | 2020-04-14 12:52 | BHS.RME ---
Substance Use & Tx History - Substance Use History Alcohol Substance amount: 1 gallon cognac / venecia Frequency of use: Daily Substance route: Oral Date of Last Use: 04/14/20 Cocaine-Crack Substance amount: $200 Frequency of use: Daily Substance route: Smoking Date of Last Use: 04/14/20 Nicotine Substance amount: 1 pack Frequency of use: Daily Substance route: Smoking Date of Last Use: 04/14/20 Physical/Psych/Mental Status - Behavior General Behavior: Increased activity (restlessness, agitation) Eye Contact: Normal - Cooperativeness Cooperativeness: Cooperative - Thinking Thought Processes: Tight, Logical, Goal Directed - Physical Health Problems Is patient presently having any pain?: No Does patient presently have any injuries (include location): No Does patient currently have a fever: No Is patient : No CIWA Nausea/Vomitin Muscle Tremors: 4-Moderate,w/Arms Extend Anxiety: 4-Mod. Anxious/Guarded Agitation: 6 Paroxysmal Sweats: 1-Minimal Palms Moist Orientation: 0-Oriented Tacttile Disturbances: 0-None Auditory Disturbances: 0-None Visual Disturbances: 0-None Headache: 0-None Present CIWA-Ar Total Score: 17
--- NOTE | 2020-04-14 15:57 | HP ---
CIWA Score Nausea/Vomitin Muscle Tremors: 4-Moderate,w/Arms Extend Anxiety: 4-Mod. Anxious/Guarded Agitation: 6 Paroxysmal Sweats: 1-Minimal Palms Moist Orientation: 0-Oriented Tacttile Disturbances: 0-None Auditory Disturbances: 0-None Visual Disturbances: 0-None Headache: 0-None Present CIWA-Ar Total Score: 17 - Admission Criteria OASAS Guidelines: Admission for Medically Managed Detox: Requires at least one of the followin. CIWA greater than 12 2. Seizures within the past 24 hours 3. Delirium tremens within the past 24 hours 4. Hallucinations within the past 24 hours 5. Acute intervention needed for co occurring medical disorder 6. Acute intervention needed for co occurring psychiatric disorder 7. Severe withdrawal that cannot be handled at a lower level of care (continued vomiting, continued diarrhea, abnormal vital signs) requiring intravenous medication and/or fluids 8. Admitting History and Physical - Admission Chief Complaint: 'I need help to stop drinking and using crack' History of Present Illness: CC: 'I need help to stop drinking and using crack' HPI: Mr. Wang is a 49 year old man with history of hypertension, hyperlipidemia, PTSD, bipolar, alcohol use disorder, crack use, who presents for detox. He was last at [facility] 05/20/19-05/24/19. He states he relapsed immediately after detox. He states that this time he has 'promised his family to get my life back together'. - Substance Use History Alcohol Substance amount: 1 gallon cognac / venecia Frequency of use: Daily Substance route: Oral Date of Last Use: 04/14/20 Cocaine-Crack Substance amount: $200 Frequency of use: Daily Substance route: Smoking Date of Last Use: 04/14/20 Nicotine Substance amount: 1 pack Frequency of use: Daily Substance route: Smoking Date of Last Use: 04/14/20 PMH: Hypertension, hyperlipidemia, ankle arthritis PSH: Multiple back surgeries for herniated discs Psych: PTSD, Bipolar, Depression; on Risperidone, Depakote, and another med he cannot recall Social: Lives in the [place] with family Legal: None History Source: Patient Limitations to Obtaining History: No Limitations - Smoking History Smoking history: Current every day smoker Have you smoked in the past 12 months: Yes Aproximately how many cigarettes per day: 10 - Alcohol/Substance Use Hx Alcohol Use: Yes Admission ROS [facility] Chief Complaint: 'I need help to stop drinking and using crack' Allergies/Adverse Reactions: Allergies Allergy/AdvReac Type Severity Reaction Status Date / Time No Known Allergies Allergy Verified 05/20/19 15:35 Exam Limitations: No Limitations - Ebola screening Have you traveled outside of the country in the last 21 days: No Have you had contact with anyone from an Ebola affected area: No Have you been sick,other than usual withdrawal symptoms: No Do you have a fever: No - Review of Systems Constitutional: No Symptoms Reported, Weight Stable EENT: denies: Eye Pain, Ear Pain, Nose Congestion Respiratory: denies: Cough, Shortness of Breath Cardiac: reports: Edema. denies: Chest Pain GI: denies: Constipated, Diarrhea, Nausea, Vomiting : reports: No Symptoms Reported Musculoskeletal: denies: Back Pain Integumentary: denies: Bruising, Rash Neuro: denies: Headache, Numbness, Tingling, Tremors Endocrine: reports: No Symptoms Reported Hematology: denies: Blood Clots Psychiatric: reports: Orientated x3 Patient History - Patient Medical History Hx Anemia: No Hx Asthma: No Hx Chronic Obstructive Pulmonary Disease (COPD): No Hx Cancer: No Hx Cardiac Disorders: No Hx Congestive Heart Failure: No Hx Hypertension: Yes (Lisinopril) Hx Hypercholesterolemia: No Hx Pacemaker: No HX Cerebrovascular Accident: No Hx Seizures: Yes Hx Dementia: No Hx Diabetes: No Hx Gastrointestinal Disorders: No Hx Liver Disease: No Hx Genitourinary Disorders: No Hx Sexually Transmitted Disorders: No Hx Renal Disease (ESRD): No Hx Thyroid Disease: No Hx Human Immunodeficiency Virus (HIV): No (last 08/27 negative ) Hx Hepatitis C: No Hx Depression: No Hx Suicide Attempt: Yes (walk infront of the bus. denies suicidal ideation at this time) Hx Bipolar Disorder: Yes (Not on medication) Hx Schizophrenia: No - Patient Surgical History Past Surgical History: No Hx Neurologic Surgery: No Hx Cataract Extraction: No Hx Cardiac Surgery: No Hx Lung Surgery: No Hx Breast Surgery: No Hx Breast Biopsy: No Hx Abdominal Surgery: No Hx Appendectomy: No Hx Cholecystectomy: No Hx Genitourinary Surgery: No Hx Section: No Hx Orthopedic Surgery: No Anesthesia Reaction: Yes - PPD History Date: 12/19/18 - Smoking Cessation Smoking history: Current every day smoker Have you smoked in the past 12 months: Yes Aproximately how many cigarettes per day: 10 Cigars Per Day: 0 Hx Chewing Tobacco Use: No Initiated information on smoking cessation: Yes 'Breaking Loose' booklet given: 04/14/20 Admission Physical Exam [facility] - Physical General Appearance: Yes: Within Normal Limits, Mild Distress, Tremorous HEENTM: Yes: Hearing grossly Normal, Normocephalic, Normal Voice, JANEEN. No: Nasal Congestion, Muffled/Hoarse Voice Respiratory: Yes: Lungs Clear, Normal Breath Sounds, No Accessory Muscle Use. No: Respiratory Distress, Rapid RR, Accessory Muscle Use Neck: Yes: Within Normal Limits, Other (numerous skin tags) Breast: Yes: Breast Exam Deferred Cardiology: Yes: Regular Rhythm, Regular Rate, S1, S2 Abdominal: Yes: Normal Bowel Sounds, Non Tender, Flat, Soft Genitourinary: Yes: Within Normal Limits Back: Yes: Within Normal Limits Musculoskeletal: Yes: full range of Motion Extremities: Yes: Within Normal Limits Neurological: Yes: Within Normal Limits, Fully Oriented, Alert, Motor Strength 5/5, Normal Mood/Affect Integumentary: Yes: Within Normal Limits - Diagnostic (1) Hyperlipidemia Current Visit: Yes Status: Chronic (2) Alcohol dependence with uncomplicated withdrawal Current Visit: No Status: Acute (3) Bipolar disorder Current Visit: No Status: Chronic Qualifiers: Active/Remission status: remission status unspecified Qualified Code(s): F31.9 - Bipolar disorder, unspecified Comment: As per history (reported by patient). (4) Cocaine dependence Current Visit: No Status: Acute Qualifiers: Substance use status: uncomplicated Qualified Code(s): F14.20 - Cocaine dependence, uncomplicated (5) Depression Current Visit: No Status: Chronic Qualifiers: Depression Type: unspecified Qualified Code(s): F32.9 - Major depressive disorder, single episode, unspecified (6) Hypertension Current Visit: No Status: Chronic Qualifiers: Hypertension type: essential hypertension Qualified Code(s): I10 - Essential (primary) hypertension (7) Nicotine dependence Current Visit: No Status: Chronic Qualifiers: Nicotine product type: cigarettes Substance use status: uncomplicated Qualified Code(s): F17.210 - Nicotine dependence, cigarettes, uncomplicated (8) PTSD (post-traumatic stress disorder) Current Visit: No Status: Chronic Comment: Self-report. No symptoms elicited. Cleared for Admission S - Detox or Rehab [facility] Level of Care: Medically Managed Screened but not Admitted - Documentation of Visit Screened but not Admitted: No Breathalyzer - Breathalyzer Breathalyzer: 0 Urine Drug Screen - Test Device Lot number: [id number] Expiration date: 04/13/22 - Control Is test valid?: Yes - Results Drug screen NEGATIVE: No Urine drug screen results: [facility] Inpatient Rehab Admission - Rehab Decision to Admit Inpatient rehab admission?: No
[2020-04-14] MEDS ORDERED: MAGNESIUM HYDROX 2400MG/30ML ORAL SUSPENSION 30 ML CUP PO PRN (16:30)
[2020-04-14] MEDS ORDERED: ACETAMINOPHEN 325 MG TABLET (FP) PO PRN ×2 (16:30)
[2020-04-14] MEDS ORDERED: chlordiazePOXIDE HCL 25 MG CAPSULE PO PRN (16:30)
[2020-04-14] MEDS ORDERED: ONDANSETRON *ODT* 4 MG TABLET SL PRN (16:30)
[2020-04-14] MEDS ORDERED: NICOTINE POLACRILEX 2 MG GUM BUC PRN (16:30)
[2020-04-14] MEDS ORDERED: BISMUTH SUBSALICYLATE 524 MG/30 ML UD PO PRN (16:30)
[2020-04-14] MEDS ORDERED: MAG HYDROX/AL HYDROX/SIMETH 30 ML UNIT-DOSE CUP PO PRN (16:30)
[2020-04-14] MEDS ORDERED: MAGNESIUM CITRATE 300 ML BOTTLE PO PRN (16:30)
[2020-04-14] MEDS ORDERED: IBUPROFEN 400 MG TABLET (FP) PO PRN (16:30)
[2020-04-14] MEDS ORDERED: METHOCARBAMOL 500 MG TABLET PO PRN (16:30)
[2020-04-14] MEDS ORDERED: MENTHOL/PHENOL 1 EACH UD MM PRN (16:30)
[2020-04-14 17:07] VITALS: BMI 34.8
[2020-04-14] MEDS: chlordiazePOXIDE HCL 25 MG CAPSULE PO SCH ×2 (18:07→22:39)
[2020-04-14] MEDS: hydrOXYzine PAMOATE 25 MG CAPSULE (FP) PO SCH ×2 (18:07→22:39)
[2020-04-14] MEDS: NICOTINE 21 MG/24 HOURS TOPICAL PATCH TD SCH (18:11)
[2020-04-14] MEDS: ATORVASTATIN CA 40 MG TABLET (FP) PO SCH (22:39)
[2020-04-14] MEDS: THIAMINE HCL 100 MG TABLET (FP) PO SCH (22:39)
[2020-04-14] MEDS: METOPROLOL TARTRATE 25 MG TABLET (FP) PO SCH (22:39)
[2020-04-14] MEDS: MELATONIN 5 MG TABLETS PO SCH (22:40)
[2020-04-15] MEDS: hydrOXYzine PAMOATE 25 MG CAPSULE (FP) PO SCH ×5 (05:10→22:10)
[2020-04-15] MEDS: chlordiazePOXIDE HCL 25 MG CAPSULE PO SCH ×4 (05:10→22:10)
[2020-04-15] MEDS: LISINOPRIL 10 MG TABLET (FP) PO SCH (10:57)
[2020-04-15] MEDS: METOPROLOL TARTRATE 25 MG TABLET (FP) PO SCH ×2 (10:57→22:10)
[2020-04-15] MEDS: FAMOTIDINE 20 MG TABLET PO SCH (10:57)
[2020-04-15] MEDS: NICOTINE 21 MG/24 HOURS TOPICAL PATCH TD SCH (10:58)
[2020-04-15] MEDS: PRENATAL VITAMINS W/ FOLIC ACID TABLET (FP) PO SCH (10:58)
--- NOTE | 2020-04-15 11:33 | PN ---
S CIWA - CIWA Score Nausea/Vomitin Muscle Tremors: 2 Anxiety: 2 Agitation: 2 Paroxysmal Sweats: No Perspiration Orientation: 0-Oriented Tacttile Disturbances: 1-Very Mild Itch/Numbness Auditory Disturbances: 0-None Visual Disturbances: 0-None Headache: 1-Very Mild CIWA-Ar Total Score: 10 [facility] Progress Note (SOAP) Subjective: alert,irritable,anxious,interrupted sleep,pain in the body and back,tremor Objective: 04/15/20 11:31 Vital Signs Temperature 97.1 F L 04/15/20 05:05 Pulse Rate 65 04/15/20 05:05 Respiratory Rate 16 04/15/20 05:05 Blood Pressure 105/64 04/15/20 05:05 O2 Sat by Pulse Oximetry (%) 95 04/15/20 05:05 04/15/20 11:32 labs pending Assessment: 04/15/20 11:32 withdrawal symptom Plan: continue detox librium regimen,
[2020-04-15 11:56] LABS: HEMATOCRIT 37.9 % (35.4-49); HEMOGLOBIN 12.3 GM/dL (11.7-16.9); MCH 29.2 pg (25.7-33.7); MCHC 32.5 g/dl (32.0-35.9); MEAN PLT VOLUME 9.1 fl (7.5-11.1); PLATELET COUNT 302 K/MM3 (134-434); RBC 4.21 M/mm3 (4.00-5.60); RDW 15.2 % (11.9-15.9); WHITE BLOOD COUNT 5.6 K/mm3 (4.0-10.0)
[2020-04-15 12:13] LABS: BLOOD UREA NITROGEN 15.9 mg/dL (7-18); CALCIUM 8.8 mg/dL (8.5-10.1); POTASSIUM 4.3 mmol/L (3.5-5.1)
[2020-04-15 12:16] LABS: BILIRUBIN,TOTAL 0.2 mg/dL (0.2-1); TOT PROT 6.3 g/dl (6.4-8.2)
[2020-04-15] MEDS: MELATONIN 5 MG TABLETS PO SCH (22:10)
[2020-04-15] MEDS: THIAMINE HCL 100 MG TABLET (FP) PO SCH (22:10)
[2020-04-15] MEDS: ATORVASTATIN CA 40 MG TABLET (FP) PO SCH (22:10)
[2020-04-16] MEDS: chlordiazePOXIDE HCL 25 MG CAPSULE PO SCH ×4 (05:06→22:32)
[2020-04-16] MEDS: hydrOXYzine PAMOATE 25 MG CAPSULE (FP) PO SCH ×5 (05:06→22:32)
[2020-04-16] MEDS: METOPROLOL TARTRATE 25 MG TABLET (FP) PO SCH ×2 (11:19→22:33)
[2020-04-16] MEDS: LISINOPRIL 10 MG TABLET (FP) PO SCH (11:19)
[2020-04-16] MEDS: PRENATAL VITAMINS W/ FOLIC ACID TABLET (FP) PO SCH (11:20)
[2020-04-16] MEDS: FAMOTIDINE 20 MG TABLET PO SCH (11:20)
[2020-04-16] MEDS: NICOTINE 21 MG/24 HOURS TOPICAL PATCH TD SCH (11:23)
--- NOTE | 2020-04-16 11:47 | PN ---
[facility] CIWA - CIWA Score Nausea/Vomitin-Mild Nausea/No Vomiting Muscle Tremors: 2 Anxiety: 2 Agitation: 2 Paroxysmal Sweats: No Perspiration Orientation: 0-Oriented Tacttile Disturbances: 1-Very Mild Itch/Numbness Auditory Disturbances: 0-None Visual Disturbances: 0-None Headache: 1-Very Mild CIWA-Ar Total Score: 9 S Progress Note (SOAP) Subjective: alert,irritable,anxious,interrupted sleep,aching pain in the body and back Objective: 04/16/20 11:45 Vital Signs Temperature 97.1 F L 04/16/20 08:40 Pulse Rate 69 04/16/20 08:40 Respiratory Rate 20 04/16/20 08:40 Blood Pressure 148/92 04/16/20 08:40 O2 Sat by Pulse Oximetry (%) 98 04/16/20 08:40 04/16/20 11:45 Laboratory Last Values WBC 5.6 K/mm3 (4.0-10.0) 04/15/20 08:05 RBC 4.21 M/mm3 (4.00-5.60) 04/15/20 08:05 Hgb 12.3 GM/dL (11.7-16.9) 04/15/20 08:05 Hct 37.9 % (35.4-49) 04/15/20 08:05 MCV 90.0 fl (80-96) 04/15/20 08:05 MCH 29.2 pg (25.7-33.7) 04/15/20 08:05 MCHC 32.5 g/dl (32.0-35.9) 04/15/20 08:05 RDW 15.2 % (11.9-15.9) 04/15/20 08:05 Plt Count 302 K/MM3 (134-434) 04/15/20 08:05 MPV 9.1 fl (7.5-11.1) 04/15/20 08:05 Sodium 145 mmol/L (136-145) 04/15/20 08:05 Potassium 4.3 mmol/L (3.5-5.1) 04/15/20 08:05 Chloride 112 mmol/L (98-107) H 04/15/20 08:05 Carbon Dioxide 25 mmol/L (21-32) 04/15/20 08:05 Anion Gap 8 MMOL/L (8-16) 04/15/20 08:05 BUN 15.9 mg/dL (7-18) 04/15/20 08:05 Creatinine 1.0 mg/dL (0.55-1.3) 04/15/20 08:05 Est GFR (CKD-EPI)AfAm 101.26 04/15/20 08:05 Est GFR (CKD-EPI)NonAf 87.37 04/15/20 08:05 Random Glucose 90 mg/dL (74-106) 04/15/20 08:05 Calcium 8.8 mg/dL (8.5-10.1) 04/15/20 08:05 Total Bilirubin 0.2 mg/dL (0.2-1) 04/15/20 08:05 AST 19 U/L (15-37) 04/15/20 08:05 ALT 22 U/L (13-61) 04/15/20 08:05 Alkaline Phosphatase 55 U/L (45-117) 04/15/20 08:05 Total Protein 6.3 g/dl (6.4-8.2) L 04/15/20 08:05 Albumin 3.0 g/dl (3.4-5.0) L 04/15/20 08:05 Syphilis Serology Non-reactive (NONREACTIVE) 04/15/20 08:05 Assessment: 04/16/20 11:46 withdrawal symptom Plan: continue detox librium regimen
[2020-04-16] MEDS: THIAMINE HCL 100 MG TABLET (FP) PO SCH (22:32)
[2020-04-16] MEDS: ATORVASTATIN CA 40 MG TABLET (FP) PO SCH (22:32)
[2020-04-16] MEDS: MELATONIN 5 MG TABLETS PO SCH (22:33)
[2020-04-17] MEDS ORDERED: chlordiazePOXIDE HCL 10 MG CAPSULE PO PRN
[2020-04-17] MEDS: chlordiazePOXIDE HCL 10 MG CAPSULE PO SCH ×4 (08:30→22:24)
[2020-04-17] MEDS: hydrOXYzine PAMOATE 25 MG CAPSULE (FP) PO SCH ×5 (08:30→22:24)
--- NOTE | 2020-04-17 10:31 | PN ---
S CIWA - CIWA Score Nausea/Vomitin-No Nausea/No Vomiting Muscle Tremors: None Anxiety: 3 Agitation: 0-Normal Activity Paroxysmal Sweats: 2 Orientation: 0-Oriented Tacttile Disturbances: 0-None Auditory Disturbances: 0-None Visual Disturbances: 0-None Headache: 2-Mild CIWA-Ar Total Score: 7 [facility] Progress Note (SOAP) Subjective: c/o anxiety, sweats, and headache. Objective: 04/17/20 10:30 Vital Signs 04/17/20 05:36 Temperature 97.8 F Pulse Rate 67 Respiratory 20 Rate Blood Pressure 160/91 O2 Sat by Pulse 98 Oximetry (%) Laboratory Last Values WBC 5.6 K/mm3 (4.0-10.0) 04/15/20 08:05 RBC 4.21 M/mm3 (4.00-5.60) 04/15/20 08:05 Hgb 12.3 GM/dL (11.7-16.9) 04/15/20 08:05 Hct 37.9 % (35.4-49) 04/15/20 08:05 MCV 90.0 fl (80-96) 04/15/20 08:05 MCH 29.2 pg (25.7-33.7) 04/15/20 08:05 MCHC 32.5 g/dl (32.0-35.9) 04/15/20 08:05 RDW 15.2 % (11.9-15.9) 04/15/20 08:05 Plt Count 302 K/MM3 (134-434) 04/15/20 08:05 MPV 9.1 fl (7.5-11.1) 04/15/20 08:05 Sodium 145 mmol/L (136-145) 04/15/20 08:05 Potassium 4.3 mmol/L (3.5-5.1) 04/15/20 08:05 Chloride 112 mmol/L (98-107) H 04/15/20 08:05 Carbon Dioxide 25 mmol/L (21-32) 04/15/20 08:05 Anion Gap 8 MMOL/L (8-16) 04/15/20 08:05 BUN 15.9 mg/dL (7-18) 04/15/20 08:05 Creatinine 1.0 mg/dL (0.55-1.3) 04/15/20 08:05 Est GFR (CKD-EPI)AfAm 101.26 04/15/20 08:05 Est GFR (CKD-EPI)NonAf 87.37 04/15/20 08:05 Random Glucose 90 mg/dL (74-106) 04/15/20 08:05 Calcium 8.8 mg/dL (8.5-10.1) 04/15/20 08:05 Total Bilirubin 0.2 mg/dL (0.2-1) 04/15/20 08:05 AST 19 U/L (15-37) 04/15/20 08:05 ALT 22 U/L (13-61) 04/15/20 08:05 Alkaline Phosphatase 55 U/L (45-117) 04/15/20 08:05 Total Protein 6.3 g/dl (6.4-8.2) L 04/15/20 08:05 Albumin 3.0 g/dl (3.4-5.0) L 04/15/20 08:05 Syphilis Serology Non-reactive (NONREACTIVE) 04/15/20 08:05 COVID-19 (DIRK) Not detected (Not Detected) 04/14/20 15:00 Labs noted. Assessment: 04/17/20 10:30 AOX3 and in no acute respiratory distress. Full ROM, ambulating in the unit. Withdrawal symptoms. Plan: continue detox.
[2020-04-17] MEDS: METOPROLOL TARTRATE 25 MG TABLET (FP) PO SCH ×2 (11:19→22:24)
[2020-04-17] MEDS: FAMOTIDINE 20 MG TABLET PO SCH (11:20)
[2020-04-17] MEDS: NICOTINE 21 MG/24 HOURS TOPICAL PATCH TD SCH (11:20)
[2020-04-17] MEDS: LISINOPRIL 10 MG TABLET (FP) PO SCH (11:20)
[2020-04-17] MEDS: PRENATAL VITAMINS W/ FOLIC ACID TABLET (FP) PO SCH (11:21)
[2020-04-17] MEDS: ATORVASTATIN CA 40 MG TABLET (FP) PO SCH (22:24)
[2020-04-17] MEDS: THIAMINE HCL 100 MG TABLET (FP) PO SCH (22:24)
[2020-04-17] MEDS: MELATONIN 5 MG TABLETS PO SCH (22:25)
[2020-04-18] MEDS: chlordiazePOXIDE HCL 10 MG CAPSULE PO SCH ×2 (06:24→17:43)
[2020-04-18] MEDS: hydrOXYzine PAMOATE 25 MG CAPSULE (FP) PO SCH ×5 (06:31→21:30)
--- NOTE | 2020-04-18 10:45 | PN ---
S CIWA - CIWA Score Nausea/Vomitin-No Nausea/No Vomiting Muscle Tremors: None Anxiety: 3 Agitation: 2 Paroxysmal Sweats: No Perspiration Orientation: 0-Oriented Tacttile Disturbances: 0-None Auditory Disturbances: 0-None Visual Disturbances: 0-None Headache: 1-Very Mild CIWA-Ar Total Score: 6 BHS Progress Note (SOAP) Subjective: PATIENT ADMITTED FOR ETOH DETOX. ROS : C/O MILD HEADACHE, RESTLESSNESS AND ANXIETY Objective: 04/18/20 10:40 Laboratory Tests 04/14/20 04/15/20 04/15/20 15:00 08:05 08:05 WBC 5.6 RBC 4.21 Hgb 12.3 Hct 37.9 MCV 90.0 MCH 29.2 MCHC 32.5 RDW 15.2 Plt Count 302 MPV 9.1 Sodium Potassium Chloride Carbon Dioxide Anion Gap BUN Creatinine Est GFR (CKD-EPI)AfAm Est GFR (CKD-EPI)NonAf Random Glucose Calcium Total Bilirubin AST ALT Alkaline Phosphatase Total Protein Albumin Syphilis Serology Non-reactive COVID-19 (DIRK) Not detected 04/15/20 08:05 WBC RBC Hgb Hct MCV MCH MCHC RDW Plt Count MPV Sodium 145 Potassium 4.3 Chloride 112 H Carbon Dioxide 25 Anion Gap 8 BUN 15.9 Creatinine 1.0 Est GFR (CKD-EPI)AfAm 101.26 Est GFR (CKD-EPI)NonAf 87.37 Random Glucose 90 Calcium 8.8 Total Bilirubin 0.2 AST 19 ALT 22 Alkaline Phosphatase 55 Total Protein 6.3 L Albumin 3.0 L Syphilis Serology COVID-19 (DIRK) PE ALERT AND ORIENTED X 3 SKIN WARM AND DRY IN NAD EXT FULL ROM, AMB AD RAMSES RESTLESS, ANXIOUS LIMITED EXAM DUE TO MILD RESTLESSNESS Assessment: 04/18/20 10:45 ETOH WITHDRAWAL SX/DETOX Plan: PATIENT TO CONTINUE DETOX ORDERED FOR D/C IN AM
[2020-04-18] MEDS: LISINOPRIL 10 MG TABLET (FP) PO SCH (11:20)
[2020-04-18] MEDS: METOPROLOL TARTRATE 25 MG TABLET (FP) PO SCH ×2 (11:20→21:30)
[2020-04-18] MEDS: PRENATAL VITAMINS W/ FOLIC ACID TABLET (FP) PO SCH (11:21)
[2020-04-18] MEDS: FAMOTIDINE 20 MG TABLET PO SCH (11:21)
[2020-04-18] MEDS: NICOTINE 21 MG/24 HOURS TOPICAL PATCH TD SCH (11:27)
[2020-04-18] MEDS: MELATONIN 5 MG TABLETS PO SCH (21:30)
[2020-04-18] MEDS: ATORVASTATIN CA 40 MG TABLET (FP) PO SCH (21:30)
[2020-04-18] MEDS: THIAMINE HCL 100 MG TABLET (FP) PO SCH (21:30)
[2020-04-19] MEDS ORDERED: chlordiazePOXIDE HCL 10 MG CAPSULE PO ONE (05:00)
[2020-04-19] MEDS: hydrOXYzine PAMOATE 25 MG CAPSULE (FP) PO SCH (06:59)
--- NOTE | 2020-04-19 10:14 | PN ---
[facility] CIWA - CIWA Score Nausea/Vomitin-No Nausea/No Vomiting Muscle Tremors: None Anxiety: 1-Mildly Anxious Agitation: 0-Normal Activity Paroxysmal Sweats: No Perspiration Orientation: 0-Oriented Tacttile Disturbances: 0-None Auditory Disturbances: 0-None Visual Disturbances: 0-None Headache: 0-None Present CIWA-Ar Total Score: 1 S Progress Note (SOAP) Subjective: alert,no complaint Objective: 04/19/20 10:12 Vital Signs Temperature 98.2 F 04/18/20 20:51 Pulse Rate 75 04/18/20 20:51 Respiratory Rate 17 04/18/20 20:51 Blood Pressure 123/68 04/18/20 20:51 O2 Sat by Pulse Oximetry (%) 98 04/18/20 20:51 Assessment: 04/19/20 10:12 detox completed,no withdrawal symptom Plan: discharge today,follow up with after care program as arrangement
--- NOTE | 2020-04-19 10:15 | DS ---
[facility] Detox Discharge Summary Admission Date: 04/14/20 Discharge Date: 04/19/20 - History Present History: Alcohol Dependence, Cocaine Dependence Additional Comments: alert,oriented x 3 ambulation on the unit lung clear on auscultation bilaterally abdomen soft,no distension,no pain, no swelling of legs detox completed no withdrawal symptom stable for discharge patient ori like to go home and will follow up with [facility] rehab by himself declined rehab at this present time,will follow up with medical provider and own psychiatrist total time spending on discharge 35 minutes Pertinent Past History: hypertension hypercholesterolemia ptsd bipolar disorder - Physical Exam Results Vital Signs: Vital Signs Temperature 98.2 F 04/18/20 20:51 Pulse Rate 75 04/18/20 20:51 Respiratory Rate 17 04/18/20 20:51 Blood Pressure 123/68 04/18/20 20:51 O2 Sat by Pulse Oximetry (%) 98 04/18/20 20:51 Pertinent Admission Physical Exam Findings: withdrawal signs and symptom Laboratory Last Values WBC 5.6 K/mm3 (4.0-10.0) 04/15/20 08:05 RBC 4.21 M/mm3 (4.00-5.60) 04/15/20 08:05 Hgb 12.3 GM/dL (11.7-16.9) 04/15/20 08:05 Hct 37.9 % (35.4-49) 04/15/20 08:05 MCV 90.0 fl (80-96) 04/15/20 08:05 MCH 29.2 pg (25.7-33.7) 04/15/20 08:05 MCHC 32.5 g/dl (32.0-35.9) 04/15/20 08:05 RDW 15.2 % (11.9-15.9) 04/15/20 08:05 Plt Count 302 K/MM3 (134-434) 04/15/20 08:05 MPV 9.1 fl (7.5-11.1) 04/15/20 08:05 Sodium 145 mmol/L (136-145) 04/15/20 08:05 Potassium 4.3 mmol/L (3.5-5.1) 04/15/20 08:05 Chloride 112 mmol/L (98-107) H 04/15/20 08:05 Carbon Dioxide 25 mmol/L (21-32) 04/15/20 08:05 Anion Gap 8 MMOL/L (8-16) 04/15/20 08:05 BUN 15.9 mg/dL (7-18) 04/15/20 08:05 Creatinine 1.0 mg/dL (0.55-1.3) 04/15/20 08:05 Est GFR (CKD-EPI)AfAm 101.26 04/15/20 08:05 Est GFR (CKD-EPI)NonAf 87.37 04/15/20 08:05 Random Glucose 90 mg/dL (74-106) 04/15/20 08:05 Calcium 8.8 mg/dL (8.5-10.1) 04/15/20 08:05 Total Bilirubin 0.2 mg/dL (0.2-1) 04/15/20 08:05 AST 19 U/L (15-37) 04/15/20 08:05 ALT 22 U/L (13-61) 04/15/20 08:05 Alkaline Phosphatase 55 U/L (45-117) 04/15/20 08:05 Total Protein 6.3 g/dl (6.4-8.2) L 04/15/20 08:05 Albumin 3.0 g/dl (3.4-5.0) L 04/15/20 08:05 Syphilis Serology Non-reactive (NONREACTIVE) 04/15/20 08:05 COVID-19 (DIRK) Not detected (Not Detected) 04/14/20 15:00 - Treatment Hospital Course: Detox Protocol Followed, Detoxed Safely, Responded well, Discharged Condition Good, Rehab Referral Accepted Patient has Accepted a Rehab Referral to: declined - Medication Discharge Medications: Ambulatory Orders Divalproex [Depakote -] 1,000 mg PO HS 04/14/20 Famotidine 20 mg PO DAILY 04/14/20 Risperidone [Risperdal] 3 mg PO HS 04/14/20 Atorvastatin Ca [Lipitor] 40 mg PO HS #14 tablet 04/18/20 Lisinopril 10 mg PO DAILY #14 tablet 04/18/20 Metoprolol Tartrate [Lopressor -] 25 mg PO BID #30 tablet 04/18/20 - Diagnosis (1) Alcohol dependence with uncomplicated withdrawal Current Visit: No Status: Acute (2) Cocaine dependence Current Visit: No Status: Acute Qualifiers: Substance use status: uncomplicated Qualified Code(s): F14.20 - Cocaine dependence, uncomplicated (3) Syncope Current Visit: No Status: Acute Qualifiers: Syncope type: unspecified Qualified Code(s): R55 - Syncope and collapse (4) Bipolar disorder Current Visit: No Status: Chronic Qualifiers: Active/Remission status: remission status unspecified Qualified Code(s): F31.9 - Bipolar disorder, unspecified (5) Nicotine dependence Current Visit: No Status: Chronic Qualifiers: Nicotine product type: cigarettes Substance use status: uncomplicated Qualified Code(s): F17.210 - Nicotine dependence, cigarettes, uncomplicated (6) PTSD (post-traumatic stress disorder) Current Visit: No Status: Chronic (7) Seizure Current Visit: No Status: Chronic - AMA Did Patient Leave Against Medical Advice: No
[2020-04-19 10:20] VITALS: BP 134/84; PULSE 82; TEMP 97.1
== END 2020-04-19 08:45 | disposition home or self-care (01) | DRG 774 ==
LOC: YASAS 12:34 → Y6N 17:16
PROVIDERS: ADMIT Allergy & Immunology; ATTEND Allergy & Immunology
PROC: HZ2ZZZZ Detoxification Services for Substance Abuse Treatment (ICD-10-PCS; principal; 2020-04-14)
DX: F10.230 Alcohol dependence with withdrawal, uncomplicated (principal); F14.20 Cocaine dependence, uncomplicated; F17.210 Nicotine dependence, cigarettes, uncomplicated; F43.10 Post-traumatic stress disorder, unspecified; F31.9 Bipolar disorder, unspecified; I10 Essential (primary) hypertension; E78.5 Hyperlipidemia, unspecified; Z91.5 Personal history of self-harm
CPT/HCPCS: 36415; 80053; 85027; 86780; U0003

== ENCOUNTER 2021-01-01 10:26 | Inpatient (IN) | payer OTHER ==
[2021-01-01 12:12] VITALS: BMI 38.9
[2021-01-01] MEDS ORDERED: MAGNESIUM CITRATE 300 ML BOTTLE PO PRN (12:44)
[2021-01-01] MEDS ORDERED: chlordiazePOXIDE HCL 25 MG CAPSULE PO PRN (12:44)
[2021-01-01] MEDS ORDERED: NICOTINE POLACRILEX 2 MG GUM BUC PRN (12:44)
[2021-01-01] MEDS ORDERED: ACETAMINOPHEN 325 MG TABLET (FP) PO PRN ×2 (12:44)
[2021-01-01] MEDS ORDERED: MAGNESIUM HYDROX 2400MG/30ML ORAL SUSPENSION 30 ML CUP PO PRN (12:44)
[2021-01-01] MEDS ORDERED: IBUPROFEN 400 MG TABLET (FP) PO PRN (12:44)
[2021-01-01] MEDS ORDERED: MAG HYDROX/AL HYDROX/SIMETH 30 ML UNIT-DOSE CUP PO PRN (12:44)
[2021-01-01] MEDS ORDERED: ONDANSETRON *ODT* 4 MG TABLET SL PRN (12:44)
[2021-01-01] MEDS ORDERED: BISMUTH SUBSALICYLATE 524 MG/30 ML UD PO PRN (12:44)
[2021-01-01] MEDS ORDERED: MENTHOL/PHENOL 1 EACH UD MM PRN (12:44)
[2021-01-01] MEDS: hydrOXYzine PAMOATE 25 MG CAPSULE (FP) PO SCH ×3 (17:18→23:02)
[2021-01-01] MEDS: chlordiazePOXIDE HCL 25 MG CAPSULE PO SCH ×2 (17:19→22:59)
[2021-01-01] MEDS: ATORVASTATIN CA 40 MG TABLET (FP) PO SCH (22:57)
[2021-01-01] MEDS: THIAMINE HCL 100 MG TABLET (FP) PO SCH (22:57)
[2021-01-01] MEDS: METOPROLOL TARTRATE 50 MG TABLET (FP) PO SCH (22:58)
[2021-01-01] MEDS: MELATONIN 5 MG TABLETS PO SCH (23:01)
[2021-01-02] MEDS: hydrOXYzine PAMOATE 25 MG CAPSULE (FP) PO SCH ×5 (07:11→22:26)
[2021-01-02] MEDS: chlordiazePOXIDE HCL 25 MG CAPSULE PO SCH ×4 (07:11→22:28)
[2021-01-02 10:40] LABS: HEMATOCRIT 37.5 % (35.4-49); HEMOGLOBIN 12.3 GM/dL (11.7-16.9); MCH 29.7 pg (25.7-33.7); MCHC 32.7 g/dl (32.0-35.9); MEAN CELL VOLUME 90.8 fl (80-96); MEAN PLT VOLUME 8.9 fl (7.5-11.1); PLATELET COUNT 310 K/MM3 (134-434); RBC 4.13 M/mm3 (4.00-5.60); RDW 15.3 % (11.9-15.9); WHITE BLOOD COUNT 4.7 K/mm3 (4.0-10.0)
[2021-01-02] MEDS: LISINOPRIL 10 MG TABLET PO SCH (10:48)
[2021-01-02] MEDS: PRENATAL VITAMINS W/ FOLIC ACID TABLET (FP) PO SCH (10:48)
[2021-01-02] MEDS: METOPROLOL TARTRATE 50 MG TABLET (FP) PO SCH ×2 (10:48→22:26)
[2021-01-02] MEDS: FAMOTIDINE 20 MG TABLET PO SCH (10:48)
[2021-01-02 10:58] LABS: CALCIUM 8.7 mg/dL (8.5-10.1)
[2021-01-02 10:59] LABS: BLOOD UREA NITROGEN 12.4 mg/dL (7-18)
[2021-01-02 11:02] LABS: CREATININE 0.9 mg/dL (0.55-1.3)
[2021-01-02 11:03] LABS: BILIRUBIN,TOTAL 0.3 mg/dL (0.2-1); TOT PROT 6.2 g/dl (6.4-8.2)
[2021-01-02] MEDS: THIAMINE HCL 100 MG TABLET (FP) PO SCH (22:25)
[2021-01-02] MEDS: DIVALPROEX SODIUM 500 MG TABLET E.C. PO SCH (22:25)
[2021-01-02] MEDS: ATORVASTATIN CA 40 MG TABLET (FP) PO SCH (22:25)
[2021-01-02] MEDS: risperiDONE 1 MG TABLET PO SCH (22:25)
[2021-01-02] MEDS: MELATONIN 5 MG TABLETS PO SCH (22:26)
[2021-01-03] MEDS: hydrOXYzine PAMOATE 25 MG CAPSULE (FP) PO SCH ×5 (07:36→23:44)
[2021-01-03] MEDS: chlordiazePOXIDE HCL 25 MG CAPSULE PO SCH ×4 (07:36→23:43)
[2021-01-03] MEDS: DIVALPROEX SODIUM 500 MG TABLET E.C. PO SCH ×2 (10:16→23:43)
[2021-01-03] MEDS: METHOCARBAMOL 500 MG TABLET PO PRN (10:16)
[2021-01-03] MEDS: risperiDONE 1 MG TABLET PO SCH ×2 (10:16→23:44)
[2021-01-03] MEDS: METOPROLOL TARTRATE 50 MG TABLET (FP) PO SCH ×2 (10:17→23:44)
[2021-01-03] MEDS: FAMOTIDINE 20 MG TABLET PO SCH (10:17)
[2021-01-03] MEDS: PRENATAL VITAMINS W/ FOLIC ACID TABLET (FP) PO SCH (10:17)
[2021-01-03] MEDS: LISINOPRIL 10 MG TABLET PO SCH (11:12)
[2021-01-03] MEDS: ATORVASTATIN CA 40 MG TABLET (FP) PO SCH (23:43)
[2021-01-03] MEDS: MELATONIN 5 MG TABLETS PO SCH (23:44)
[2021-01-03] MEDS: THIAMINE HCL 100 MG TABLET (FP) PO SCH (23:44)
[2021-01-04] MEDS ORDERED: chlordiazePOXIDE HCL 10 MG CAPSULE PO PRN
[2021-01-04] MEDS: chlordiazePOXIDE HCL 10 MG CAPSULE PO SCH ×4 (05:38→22:44)
[2021-01-04] MEDS: hydrOXYzine PAMOATE 25 MG CAPSULE (FP) PO SCH ×5 (05:39→22:44)
[2021-01-04] MEDS: DIVALPROEX SODIUM 500 MG TABLET E.C. PO SCH ×2 (11:41→22:44)
[2021-01-04] MEDS: FAMOTIDINE 20 MG TABLET PO SCH (11:42)
[2021-01-04] MEDS: PRENATAL VITAMINS W/ FOLIC ACID TABLET (FP) PO SCH (11:42)
[2021-01-04] MEDS: risperiDONE 1 MG TABLET PO SCH ×2 (11:42→22:44)
[2021-01-04] MEDS: LISINOPRIL 10 MG TABLET PO SCH (11:42)
[2021-01-04] MEDS: METOPROLOL TARTRATE 50 MG TABLET (FP) PO SCH (11:42)
[2021-01-04] MEDS: METOPROLOL TARTRATE 25 MG TABLET (FP) PO SCH (22:44)
[2021-01-04] MEDS: ATORVASTATIN CA 40 MG TABLET (FP) PO SCH (22:44)
[2021-01-04] MEDS: MELATONIN 5 MG TABLETS PO SCH (22:45)
[2021-01-04] MEDS: THIAMINE HCL 100 MG TABLET (FP) PO SCH (22:47)
[2021-01-05] MEDS: hydrOXYzine PAMOATE 25 MG CAPSULE (FP) PO SCH ×5 (06:33→22:28)
[2021-01-05] MEDS: chlordiazePOXIDE HCL 10 MG CAPSULE PO SCH ×2 (06:34→18:20)
[2021-01-05] MEDS: METOPROLOL TARTRATE 25 MG TABLET (FP) PO SCH ×2 (11:43→22:27)
[2021-01-05] MEDS: risperiDONE 1 MG TABLET PO SCH ×2 (11:43→22:27)
[2021-01-05] MEDS: FAMOTIDINE 20 MG TABLET PO SCH (11:43)
[2021-01-05] MEDS: PRENATAL VITAMINS W/ FOLIC ACID TABLET (FP) PO SCH (11:43)
[2021-01-05] MEDS: LISINOPRIL 10 MG TABLET PO SCH (11:43)
[2021-01-05] MEDS: METHOCARBAMOL 500 MG TABLET PO PRN (11:43)
[2021-01-05] MEDS: DIVALPROEX SODIUM 500 MG TABLET E.C. PO SCH ×2 (11:43→22:27)
[2021-01-05] MEDS: THIAMINE HCL 100 MG TABLET (FP) PO SCH (22:27)
[2021-01-05] MEDS: ATORVASTATIN CA 40 MG TABLET (FP) PO SCH (22:27)
[2021-01-05] MEDS: MELATONIN 5 MG TABLETS PO SCH (22:28)
[2021-01-06] MEDS ORDERED: chlordiazePOXIDE HCL 10 MG CAPSULE PO ONE (05:00)
[2021-01-06] MEDS: hydrOXYzine PAMOATE 25 MG CAPSULE (FP) PO SCH (06:02)
[2021-01-06 09:35] VITALS: BP 159/97; PULSE 86; TEMP 97.1
== END 2021-01-06 09:42 | disposition home or self-care (01) | DRG 774 ==
LOC: YASAS 10:26 → Y6N 16:16
PROVIDERS: ADMIT Allergy & Immunology; ATTEND Allergy & Immunology
PROC: HZ2ZZZZ Detoxification Services for Substance Abuse Treatment (ICD-10-PCS; principal; 2021-01-01)
DX: F10.230 Alcohol dependence with withdrawal, uncomplicated (principal); F14.20 Cocaine dependence, uncomplicated; F17.210 Nicotine dependence, cigarettes, uncomplicated; F31.9 Bipolar disorder, unspecified; F19.24 Other psychoactive substance dependence with psychoactive substance-induced mood disorder; F43.10 Post-traumatic stress disorder, unspecified; F41.9 Anxiety disorder, unspecified; E78.5 Hyperlipidemia, unspecified; E78.00 Pure hypercholesterolemia, unspecified; G40.89 Other seizures; I10 Essential (primary) hypertension; K21.9 Gastro-esophageal reflux disease without esophagitis; Z62.810 Personal history of physical and sexual abuse in childhood
CPT/HCPCS: 36415; 80053; 80164; 82962; 85027; 86780; C9803; J2794; U0003; U0005

== ENCOUNTER 2021-02-19 12:27 | Inpatient (IN) | payer OTHER ==
[2021-02-19 13:48] VITALS: BMI 38.2
[2021-02-19] MEDS ORDERED: IBUPROFEN 400 MG TABLET (FP) PO PRN (14:47)
[2021-02-19] MEDS ORDERED: MAG HYDROX/AL HYDROX/SIMETH 30 ML UNIT-DOSE CUP PO PRN (14:47)
[2021-02-19] MEDS ORDERED: MAGNESIUM HYDROX 2400MG/30ML ORAL SUSPENSION 30 ML CUP PO PRN (14:47)
[2021-02-19] MEDS ORDERED: LORazepam 1 MG TABLET PO PRN (14:47)
[2021-02-19] MEDS ORDERED: BISMUTH SUBSALICYLATE 524 MG/30 ML PO PRN (14:47)
[2021-02-19] MEDS ORDERED: MAGNESIUM CITRATE 300 ML BOTTLE PO PRN (14:47)
[2021-02-19] MEDS ORDERED: MENTHOL/PHENOL 1 EACH UD MM PRN (14:47)
[2021-02-19] MEDS ORDERED: ONDANSETRON *ODT* 4 MG TABLET SL PRN (14:47)
[2021-02-19] MEDS ORDERED: NICOTINE POLACRILEX 2 MG GUM BUC PRN (14:47)
[2021-02-19] MEDS ORDERED: ACETAMINOPHEN 325 MG TABLET (FP) PO PRN ×2 (14:47)
[2021-02-19] MEDS: hydrOXYzine PAMOATE 25 MG CAPSULE (FP) PO SCH ×2 (19:14→22:17)
[2021-02-19] MEDS: LORazepam 2 MG TABLET PO SCH ×2 (19:15→22:15)
[2021-02-19] MEDS: DIVALPROEX SODIUM 500 MG TABLET E.C. PO SCH (22:15)
[2021-02-19] MEDS: THIAMINE HCL 100 MG TABLET (FP) PO SCH (22:17)
[2021-02-19] MEDS: MELATONIN 5 MG TABLETS PO SCH (22:17)
[2021-02-19] MEDS: risperiDONE 1 MG TABLET PO SCH (22:17)
[2021-02-19] MEDS: METOPROLOL TARTRATE 50 MG TABLET (FP) PO SCH (22:17)
[2021-02-19] MEDS: ATORVASTATIN CA 40 MG TABLET (FP) PO SCH (22:17)
[2021-02-20] MEDS: hydrOXYzine PAMOATE 25 MG CAPSULE (FP) PO SCH ×5 (07:11→22:26)
[2021-02-20] MEDS: LORazepam 2 MG TABLET PO SCH ×4 (07:11→22:26)
[2021-02-20 09:48] LABS: HEMATOCRIT 36.7 % (35.4-49); MCH 29.1 pg (25.7-33.7); MCHC 32.6 g/dl (32.0-35.9); MEAN CELL VOLUME 89.2 fl (80-96); PLATELET COUNT 287 K/MM3 (134-434); RBC 4.12 M/mm3 (4.00-5.60); RDW 14.8 % (11.9-15.9); WHITE BLOOD COUNT 5.6 K/mm3 (4.0-10.0)
[2021-02-20 09:55] LABS: CALCIUM 8.4 mg/dL (8.5-10.1)
[2021-02-20 09:56] LABS: ALBUMIN 2.9 g/dl (3.4-5.0); BLOOD UREA NITROGEN 13.2 mg/dL (7-18)
[2021-02-20 09:59] LABS: CREATININE 0.8 mg/dL (0.55-1.3)
[2021-02-20 10:00] LABS: BILIRUBIN,TOTAL 0.3 mg/dL (0.2-1); TOT PROT 5.8 g/dl (6.4-8.2)
[2021-02-20] MEDS: PRENATAL VITAMINS W/ FOLIC ACID TABLET (FP) PO SCH (12:35)
[2021-02-20] MEDS: risperiDONE 1 MG TABLET PO SCH ×2 (12:35→22:27)
[2021-02-20] MEDS: LISINOPRIL 10 MG TABLET PO SCH (12:35)
[2021-02-20] MEDS: METOPROLOL TARTRATE 50 MG TABLET (FP) PO SCH ×2 (12:36→22:28)
[2021-02-20] MEDS: NICOTINE 7 MG/24 HOURS TOPICAL PATCH TD SCH (12:44)
[2021-02-20] MEDS: ATORVASTATIN CA 40 MG TABLET (FP) PO SCH (22:26)
[2021-02-20] MEDS: THIAMINE HCL 100 MG TABLET (FP) PO SCH (22:26)
[2021-02-20] MEDS: DIVALPROEX SODIUM 500 MG TABLET E.C. PO SCH (22:27)
[2021-02-20] MEDS: MELATONIN 5 MG TABLETS PO SCH (22:27)
[2021-02-21] MEDS: LORazepam 1 MG TABLET PO SCH ×4 (06:59→22:17)
[2021-02-21] MEDS: hydrOXYzine PAMOATE 25 MG CAPSULE (FP) PO SCH ×5 (06:59→22:17)
[2021-02-21] MEDS: NICOTINE 7 MG/24 HOURS TOPICAL PATCH TD SCH (12:37)
[2021-02-21] MEDS: PRENATAL VITAMINS W/ FOLIC ACID TABLET (FP) PO SCH (12:38)
[2021-02-21] MEDS: LISINOPRIL 10 MG TABLET PO SCH (12:38)
[2021-02-21] MEDS: risperiDONE 1 MG TABLET PO SCH ×2 (12:38→22:16)
[2021-02-21] MEDS: METOPROLOL TARTRATE 50 MG TABLET (FP) PO SCH ×2 (12:39→22:17)
[2021-02-21] MEDS: MELATONIN 5 MG TABLETS PO SCH (22:16)
[2021-02-21] MEDS: DIVALPROEX SODIUM 500 MG TABLET E.C. PO SCH (22:16)
[2021-02-21] MEDS: THIAMINE HCL 100 MG TABLET (FP) PO SCH (22:16)
[2021-02-21] MEDS: ATORVASTATIN CA 40 MG TABLET (FP) PO SCH (22:17)
[2021-02-22] MEDS ORDERED: LORazepam 0.5 MG TABLET PO PRN
[2021-02-22] MEDS: LORazepam 0.5 MG TABLET PO SCH ×4 (06:04→22:31)
[2021-02-22] MEDS: hydrOXYzine PAMOATE 25 MG CAPSULE (FP) PO SCH ×2 (06:05→10:41)
[2021-02-22] MEDS: METHOCARBAMOL 500 MG TABLET PO PRN ×2 (06:06→22:34)
[2021-02-22] MEDS ORDERED: hydrOXYzine PAMOATE 25 MG CAPSULE (FP) PO PRN (10:18)
[2021-02-22] MEDS ORDERED: IBUPROFEN 400 MG TABLET (FP) PO PRN (10:18)
[2021-02-22] MEDS ORDERED: LIDOCAINE 5% TOPICAL PATCH TP SCH (10:30)
[2021-02-22] MEDS: PRENATAL VITAMINS W/ FOLIC ACID TABLET (FP) PO SCH (10:34)
[2021-02-22] MEDS: risperiDONE 1 MG TABLET PO SCH ×2 (10:34→22:31)
[2021-02-22] MEDS: LISINOPRIL 10 MG TABLET PO SCH (10:34)
[2021-02-22] MEDS: METOPROLOL TARTRATE 50 MG TABLET (FP) PO SCH ×2 (10:36→22:35)
[2021-02-22] MEDS: NICOTINE 7 MG/24 HOURS TOPICAL PATCH TD SCH (10:36)
[2021-02-22] MEDS ORDERED: LIDOCAINE PATCH REMOVAL MC SCH (22:00)
[2021-02-22] MEDS: THIAMINE HCL 100 MG TABLET (FP) PO SCH (22:31)
[2021-02-22] MEDS: ATORVASTATIN CA 40 MG TABLET (FP) PO SCH (22:31)
[2021-02-22] MEDS: DIVALPROEX SODIUM 500 MG TABLET E.C. PO SCH (22:31)
[2021-02-22] MEDS: MELATONIN 5 MG TABLETS PO SCH (22:31)
[2021-02-23] MEDS ORDERED: LORazepam 0.5 MG TABLET PO ONE (05:00)
[2021-02-23] MEDS: METHOCARBAMOL 500 MG TABLET PO PRN (06:05)
[2021-02-23 08:51] VITALS: BP 136/88; PULSE 64; TEMP 96.4
== END 2021-02-23 09:25 | disposition home or self-care (01) | DRG 774 ==
LOC: YASAS 12:27 → Y3N 14:04
PROVIDERS: ADMIT Allergy & Immunology; ATTEND Allergy & Immunology
PROC: HZ2ZZZZ Detoxification Services for Substance Abuse Treatment (ICD-10-PCS; principal; 2021-02-19)
DX: F10.230 Alcohol dependence with withdrawal, uncomplicated (principal); F14.20 Cocaine dependence, uncomplicated; F17.213 Nicotine dependence, cigarettes, with withdrawal; F19.24 Other psychoactive substance dependence with psychoactive substance-induced mood disorder; F31.9 Bipolar disorder, unspecified; F43.10 Post-traumatic stress disorder, unspecified; I10 Essential (primary) hypertension; G47.00 Insomnia, unspecified; E66.9 Obesity, unspecified; Z62.810 Personal history of physical and sexual abuse in childhood; Z68.38 Body mass index [BMI] 38.0-38.9, adult; Z91.410 Personal history of adult physical and sexual abuse; Z91.5 Personal history of self-harm; Z91.19 Patient's noncompliance with other medical treatment and regimen
CPT/HCPCS: 36415; 80053; 80164; 85027; 86780; C9803; J2794; U0003; U0005

== ENCOUNTER 2021-05-16 12:47 | Inpatient (IN) | payer OTHER ==
[2021-05-16] MEDS ORDERED: MAG HYDROX/AL HYDROX/SIMETH 30 ML UNIT-DOSE CUP PO PRN (14:17)
[2021-05-16] MEDS ORDERED: ACETAMINOPHEN 325 MG TABLET (FP) PO PRN ×2 (14:17)
[2021-05-16] MEDS ORDERED: ONDANSETRON *ODT* 4 MG TABLET SL PRN (14:17)
[2021-05-16] MEDS ORDERED: NICOTINE 10 MG CARTRIDGE (INHALER) IH PRN (14:17)
[2021-05-16] MEDS ORDERED: MAGNESIUM HYDROX 2400MG/30ML ORAL SUSPENSION 30 ML CUP PO PRN (14:17)
[2021-05-16] MEDS ORDERED: diazePAM 5 MG TABLET PO PRN (14:17)
[2021-05-16] MEDS ORDERED: BISMUTH SUBSALICYLATE 524 MG/30 ML PO PRN (14:17)
[2021-05-16] MEDS ORDERED: METHOCARBAMOL 500 MG TABLET PO PRN (14:17)
[2021-05-16] MEDS ORDERED: MENTHOL/PHENOL 1 EACH UD MM PRN (14:17)
[2021-05-16] MEDS ORDERED: MAGNESIUM CITRATE 300 ML BOTTLE PO PRN (14:17)
[2021-05-16] MEDS ORDERED: BENZOCAINE 20 % GEL TUBE MM PRN (14:23)
[2021-05-16] MEDS ORDERED: IBUPROFEN 400 MG TABLET (FP) PO ONE (14:53)
[2021-05-16] MEDS: IBUPROFEN 400 MG TABLET (FP) PO PRN (14:55)
[2021-05-16 15:10] VITALS: BMI 37.8
[2021-05-16] MEDS: diazePAM 5 MG TABLET PO SCH ×2 (17:22→22:28)
[2021-05-16] MEDS: hydrOXYzine PAMOATE 25 MG CAPSULE (FP) PO SCH ×2 (17:22→22:28)
[2021-05-16] MEDS: AMOXICILLIN 500 MG CAPSULE (FP) PO SCH ×2 (17:23→22:28)
[2021-05-16] MEDS ORDERED: LISINOPRIL 10 MG TABLET PO ONE (17:46)
[2021-05-16] MEDS: THIAMINE HCL 100 MG TABLET (FP) PO SCH (22:28)
[2021-05-16] MEDS: ATORVASTATIN CA 40 MG TABLET (FP) PO SCH (22:28)
[2021-05-16] MEDS: MELATONIN 5 MG TABLETS PO SCH (22:29)
[2021-05-16] MEDS: METOPROLOL TARTRATE 50 MG TABLET (FP) PO SCH (22:29)
[2021-05-17] MEDS: hydrOXYzine PAMOATE 25 MG CAPSULE (FP) PO SCH ×5 (06:13→22:27)
[2021-05-17] MEDS: AMOXICILLIN 500 MG CAPSULE (FP) PO SCH ×3 (06:13→22:24)
[2021-05-17] MEDS: diazePAM 5 MG TABLET PO SCH ×4 (06:14→22:24)
[2021-05-17] MEDS ORDERED: cloNIDine HCL 0.1 MG TABLET PO PRN (09:43)
[2021-05-17] MEDS ORDERED: LISINOPRIL 10 MG TABLET PO SCH (10:00)
[2021-05-17] MEDS: FAMOTIDINE 20 MG TABLET PO SCH (10:34)
[2021-05-17] MEDS: PRENATAL VITAMINS W/ FOLIC ACID TABLET (FP) PO SCH (10:34)
[2021-05-17] MEDS: METOPROLOL TARTRATE 50 MG TABLET (FP) PO SCH ×2 (10:35→22:26)
[2021-05-17] MEDS: IBUPROFEN 400 MG TABLET (FP) PO PRN (10:35)
[2021-05-17 10:40] LABS: ALBUMIN 2.8 g/dl (3.4-5.0); BLOOD UREA NITROGEN 14.9 mg/dL (7-18); CALCIUM 8.5 mg/dL (8.5-10.1)
[2021-05-17 10:41] LABS: HEMATOCRIT 36.5 % (35.4-49); HEMOGLOBIN 12.5 GM/dL (11.7-16.9); MCH 30.4 pg (25.7-33.7); MCHC 34.2 g/dl (32.0-35.9); MEAN CELL VOLUME 88.9 fl (80-96); MEAN PLT VOLUME 8.8 fl (7.5-11.1); PLATELET COUNT 294 10^3/uL (134-434); RBC 4.11 M/mm3 (4.00-5.60); RDW 14.6 % (11.9-15.9); WHITE BLOOD COUNT 4.7 K/mm3 (4.0-10.0)
[2021-05-17 10:44] LABS: BILIRUBIN,TOTAL 0.2 mg/dL (0.2-1); TOT PROT 6.3 g/dl (6.4-8.2)
[2021-05-17 10:45] LABS: CREATININE 0.9 mg/dL (0.55-1.3)
[2021-05-17] MEDS: risperiDONE 1 MG TABLET PO SCH ×2 (14:49→22:24)
[2021-05-17] MEDS: ATORVASTATIN CA 40 MG TABLET (FP) PO SCH (22:24)
[2021-05-17] MEDS: THIAMINE HCL 100 MG TABLET (FP) PO SCH (22:24)
[2021-05-17] MEDS: MELATONIN 5 MG TABLETS PO SCH (22:26)
[2021-05-18] MEDS: hydrOXYzine PAMOATE 25 MG CAPSULE (FP) PO SCH ×3 (05:50→13:46)
[2021-05-18] MEDS: diazePAM 5 MG TABLET PO SCH ×2 (05:50→13:47)
[2021-05-18] MEDS: AMOXICILLIN 500 MG CAPSULE (FP) PO SCH ×2 (05:50→13:46)
[2021-05-18] MEDS ORDERED: LISINOPRIL 20 MG TABLET PO SCH (10:00)
[2021-05-18] MEDS: FAMOTIDINE 20 MG TABLET PO SCH (10:17)
[2021-05-18] MEDS: PRENATAL VITAMINS W/ FOLIC ACID TABLET (FP) PO SCH (10:17)
[2021-05-18] MEDS: risperiDONE 1 MG TABLET PO SCH (10:17)
[2021-05-18] MEDS: METOPROLOL TARTRATE 50 MG TABLET (FP) PO SCH (10:17)
[2021-05-18 12:53] VITALS: BP 137/72; PULSE 69; TEMP 98.7
[2021-05-19] MEDS ORDERED: diazePAM 5 MG TABLET PO SCH (06:00)
[2021-05-20] MEDS ORDERED: diazePAM 5 MG TABLET PO ONE (06:00)
== END 2021-05-18 15:05 | disposition left against medical advice (07) | DRG 770 ==
LOC: YASAS 12:47 → Y6N 15:20
PROVIDERS: ADMIT Allergy & Immunology; ATTEND Allergy & Immunology
PROC: HZ2ZZZZ Detoxification Services for Substance Abuse Treatment (ICD-10-PCS; principal; 2021-05-16)
DX: F10.230 Alcohol dependence with withdrawal, uncomplicated (principal); F14.20 Cocaine dependence, uncomplicated; F17.210 Nicotine dependence, cigarettes, uncomplicated; F31.9 Bipolar disorder, unspecified; F10.282 Alcohol dependence with alcohol-induced sleep disorder; F19.24 Other psychoactive substance dependence with psychoactive substance-induced mood disorder; F43.10 Post-traumatic stress disorder, unspecified; F41.8 Other specified anxiety disorders; E78.00 Pure hypercholesterolemia, unspecified; G40.89 Other seizures; I10 Essential (primary) hypertension; J45.909 Unspecified asthma, uncomplicated; K21.9 Gastro-esophageal reflux disease without esophagitis; M54.5 Low back pain; G89.29 Other chronic pain; R56.9 Unspecified convulsions; Z86.39 Personal history of other endocrine, nutritional and metabolic disease
CPT/HCPCS: 36415; 80053; 85027; 86780; C9803; J0735; J2794; U0003; U0005

== ENCOUNTER 2023-05-11 14:52 | Inpatient (IN) | payer OTHER ==
[2023-05-11 15:19] VITALS: BMI 36.2
[2023-05-11] MEDS ORDERED: BENZONATATE 200 MG CAPSULE PO PRN (16:59)
[2023-05-11] MEDS ORDERED: guaiFENesin 600 MG TABLET.ER (FP) PO PRN (16:59)
[2023-05-11] MEDS ORDERED: BISMUTH SUBSALICYLATE 524 MG/30 ML PO PRN (16:59)
[2023-05-11] MEDS ORDERED: MAG HYDROX/AL HYDROX/SIMETH 30 ML UNIT-DOSE CUP PO PRN (16:59)
[2023-05-11] MEDS ORDERED: ACETAMINOPHEN 325 MG TABLET (FP) PO PRN (16:59)
[2023-05-11] MEDS ORDERED: NICOTINE POLACRILEX 2 MG GUM BUC PRN (16:59)
[2023-05-11] MEDS ORDERED: NALOXONE HCL 0.4 MG/ML VIAL IM PRN (16:59)
[2023-05-11] MEDS ORDERED: LOPERAMIDE HCL 2 MG CAPSULE PO PRN (16:59)
[2023-05-11] MEDS ORDERED: BENZOCAINE/MENTHOL (CHLORASEPTIC ) LOZENGE MM PRN (16:59)
[2023-05-11] MEDS ORDERED: chlordiazePOXIDE HCL 25 MG CAPSULE PO PRN (16:59)
[2023-05-11] MEDS ORDERED: MAGNESIUM HYDROX 2400MG/30ML ORAL SUSPENSION 30 ML CUP PO PRN (16:59)
[2023-05-11] MEDS ORDERED: IBUPROFEN 400 MG TABLET (FP) PO PRN (16:59)
[2023-05-11] MEDS ORDERED: ONDANSETRON *ODT* 4 MG TABLET SL PRN (16:59)
[2023-05-11] MEDS ORDERED: DICYCLOMINE HCL 10 MG CAPSULE PO PRN (16:59)
[2023-05-11] MEDS ORDERED: hydrOXYzine PAMOATE 25 MG CAPSULE (FP) PO PRN (16:59)
[2023-05-11] MEDS ORDERED: POLYETHYLENE GLYCOL (HEALTHYLAX) 3350 17 GM PACKET PO PRN (16:59)
[2023-05-11] MEDS ORDERED: NALOXONE HCL (KLOXXADO) 8 MG SPRAY NS PRN (16:59)
[2023-05-11] MEDS ORDERED: chlordiazePOXIDE HCL 25 MG CAPSULE ONE (17:45)
[2023-05-11] MEDS: chlordiazePOXIDE HCL 25 MG CAPSULE PO SCH ×2 (17:49→23:00)
[2023-05-11] MEDS: THIAMINE HCL 100 MG TABLET (FP) PO SCH (22:57)
[2023-05-11] MEDS: IBUPROFEN 600 MG TABLET (FP) PO PRN (22:58)
[2023-05-11] MEDS: MELATONIN 5 MG TABLETS PO SCH (23:03)
[2023-05-12] MEDS: chlordiazePOXIDE HCL 25 MG CAPSULE PO SCH ×4 (05:59→22:00)
[2023-05-12] MEDS: IBUPROFEN 600 MG TABLET (FP) PO PRN (06:00)
[2023-05-12 10:33] LABS: CHLORIDE 114 mmol/L (98-107); POTASSIUM 3.9 mmol/L (3.5-5.1); SODIUM 144 mmol/L (136-145)
[2023-05-12 10:35] LABS: CALCIUM 8.1 mg/dL (8.5-10.1)
[2023-05-12 10:36] LABS: ALBUMIN 2.7 g/dl (3.4-5.0); ANION GAP 3 MMOL/L (8-16); BLOOD UREA NITROGEN 16.7 mg/dL (7-18); CO2 27 mmol/L (21-32); GLUCOSE,RANDOM 118 mg/dL (74-106)
[2023-05-12 10:38] LABS: CREATININE 0.7 mg/dL (0.55-1.3)
[2023-05-12 10:39] LABS: SGOT/AST 21 U/L (15-37); SGPT/ALT 27 U/L (13-61)
[2023-05-12 10:40] LABS: BILIRUBIN,TOTAL < 0.1 mg/dL (0.2-1)
[2023-05-12 10:41] LABS: ALK PHOS 65 U/L (45-117)
[2023-05-12] MEDS: PRENATAL VITAMINS W/ FOLIC ACID TABLET (FP) PO SCH (10:46)
[2023-05-12 10:47] LABS: HEMATOCRIT 36.3 % (35.4-49); HEMOGLOBIN 11.9 GM/dL (11.7-16.9); MCH 29.8 pg (25.7-33.7); MCHC 32.7 g/dl (32.0-35.9); MEAN CELL VOLUME 91.1 fl (80-96); MEAN PLT VOLUME 9.6 fl (7.5-11.1); PLATELET COUNT 222 10^3/uL (134-434); RBC 3.99 M/mm3 (4.00-5.60); RDW 14.4 % (11.9-15.9); WHITE BLOOD COUNT 4.1 K/mm3 (4.0-10.0)
[2023-05-12] MEDS: NICOTINE 14 MG/24 HOURS TOPICAL PATCH TD SCH (10:55)
[2023-05-12] MEDS: DIVALPROEX SODIUM 500 MG TABLET E.C. PO SCH (21:59)
[2023-05-12] MEDS: MELATONIN 5 MG TABLETS PO SCH (21:59)
[2023-05-12] MEDS: THIAMINE HCL 100 MG TABLET (FP) PO SCH (21:59)
[2023-05-13] MEDS: chlordiazePOXIDE HCL 25 MG CAPSULE PO SCH ×4 (05:40→22:52)
[2023-05-13] MEDS: PRENATAL VITAMINS W/ FOLIC ACID TABLET (FP) PO SCH (10:23)
[2023-05-13] MEDS: METHOCARBAMOL 500 MG TABLET PO PRN (10:23)
[2023-05-13] MEDS: LISINOPRIL 20 MG TABLET PO SCH (10:23)
[2023-05-13] MEDS: FAMOTIDINE 20 MG TABLET PO SCH (10:23)
[2023-05-13] MEDS: NICOTINE 14 MG/24 HOURS TOPICAL PATCH TD SCH (10:36)
[2023-05-13] MEDS: IBUPROFEN 600 MG TABLET (FP) PO PRN (17:32)
[2023-05-13] MEDS: DIVALPROEX SODIUM 500 MG TABLET E.C. PO SCH (22:33)
[2023-05-13] MEDS: THIAMINE HCL 100 MG TABLET (FP) PO SCH (22:33)
[2023-05-13] MEDS: MELATONIN 5 MG TABLETS PO SCH (22:33)
[2023-05-13] MEDS: ATORVASTATIN CA 40 MG TABLET (FP) PO SCH (22:33)
[2023-05-14] MEDS ORDERED: chlordiazePOXIDE HCL 10 MG CAPSULE PO PRN
[2023-05-14] MEDS: chlordiazePOXIDE HCL 10 MG CAPSULE PO SCH ×4 (05:36→22:39)
[2023-05-14] MEDS: FAMOTIDINE 20 MG TABLET PO SCH (10:31)
[2023-05-14] MEDS: PRENATAL VITAMINS W/ FOLIC ACID TABLET (FP) PO SCH (10:31)
[2023-05-14] MEDS: LISINOPRIL 20 MG TABLET PO SCH (10:31)
[2023-05-14] MEDS: NICOTINE 14 MG/24 HOURS TOPICAL PATCH TD SCH (10:34)
[2023-05-14] MEDS: METOPROLOL TARTRATE 50 MG TABLET (FP) PO SCH ×2 (13:24→22:37)
[2023-05-14] MEDS: THIAMINE HCL 100 MG TABLET (FP) PO SCH (22:36)
[2023-05-14] MEDS: ATORVASTATIN CA 40 MG TABLET (FP) PO SCH (22:36)
[2023-05-14] MEDS: DIVALPROEX SODIUM 500 MG TABLET E.C. PO SCH (22:36)
[2023-05-14] MEDS: IBUPROFEN 600 MG TABLET (FP) PO PRN (22:39)
[2023-05-14] MEDS: MELATONIN 5 MG TABLETS PO SCH (22:45)
[2023-05-15] MEDS: chlordiazePOXIDE HCL 10 MG CAPSULE PO SCH ×2 (05:26→17:34)
[2023-05-15] MEDS: METOPROLOL TARTRATE 50 MG TABLET (FP) PO SCH ×2 (10:23→22:11)
[2023-05-15] MEDS: PRENATAL VITAMINS W/ FOLIC ACID TABLET (FP) PO SCH (10:23)
[2023-05-15] MEDS: LISINOPRIL 20 MG TABLET PO SCH (10:24)
[2023-05-15] MEDS: FAMOTIDINE 20 MG TABLET PO SCH (10:24)
[2023-05-15] MEDS: NICOTINE 14 MG/24 HOURS TOPICAL PATCH TD SCH (10:25)
[2023-05-15 10:32] LABS: CHOLESTEROL 134 mg/dL (50-200)
[2023-05-15 10:33] LABS: LDL CHOLESTEROL (ONLY SJRH) 67 mg/dL (5-100)
[2023-05-15 10:35] LABS: HDL CHOLESTEROL 48 mg/dL (40-60)
[2023-05-15] MEDS: IBUPROFEN 600 MG TABLET (FP) PO PRN (17:35)
[2023-05-15] MEDS: DIVALPROEX SODIUM 500 MG TABLET E.C. PO SCH (22:10)
[2023-05-15] MEDS: ATORVASTATIN CA 40 MG TABLET (FP) PO SCH (22:11)
[2023-05-15] MEDS: THIAMINE HCL 100 MG TABLET (FP) PO SCH (22:11)
[2023-05-15] MEDS: MELATONIN 5 MG TABLETS PO SCH (22:12)
[2023-05-15] MEDS: METHOCARBAMOL 500 MG TABLET PO PRN (22:13)
[2023-05-16] MEDS ORDERED: chlordiazePOXIDE HCL 10 MG CAPSULE PO ONE (05:00)
[2023-05-16] MEDS: PRENATAL VITAMINS W/ FOLIC ACID TABLET (FP) PO SCH (11:04)
[2023-05-16] MEDS: NICOTINE 14 MG/24 HOURS TOPICAL PATCH TD SCH (11:06)
[2023-05-16] MEDS: METOPROLOL TARTRATE 50 MG TABLET (FP) PO SCH ×2 (11:06→22:25)
[2023-05-16] MEDS: FAMOTIDINE 20 MG TABLET PO SCH (11:06)
[2023-05-16] MEDS: LISINOPRIL 20 MG TABLET PO SCH (11:06)
[2023-05-16] MEDS: THIAMINE HCL 100 MG TABLET (FP) PO SCH (22:25)
[2023-05-16] MEDS: DIVALPROEX SODIUM 500 MG TABLET E.C. PO SCH (22:25)
[2023-05-16] MEDS: MELATONIN 5 MG TABLETS PO SCH (22:25)
[2023-05-17 09:29] VITALS: BP 138/89; PULSE 80; RESP 17; TEMP 97.9
[2023-05-17] MEDS: NICOTINE 14 MG/24 HOURS TOPICAL PATCH TD SCH (10:49)
[2023-05-17] MEDS: PRENATAL VITAMINS W/ FOLIC ACID TABLET (FP) PO SCH (10:50)
[2023-05-17] MEDS: LISINOPRIL 20 MG TABLET PO SCH (10:50)
[2023-05-17] MEDS: METOPROLOL TARTRATE 50 MG TABLET (FP) PO SCH (10:50)
[2023-05-17] MEDS: FAMOTIDINE 20 MG TABLET PO SCH (10:50)
== END 2023-05-17 11:17 | disposition other institution (70) | DRG 774 ==
LOC: YASAS 14:52 → Y6N 17:08
PROVIDERS: ADMIT Allergy & Immunology; ATTEND Surgery
PROC: HZ2ZZZZ Detoxification Services for Substance Abuse Treatment (ICD-10-PCS; principal; 2023-05-11)
DX: F10.230 Alcohol dependence with withdrawal, uncomplicated (principal); F14.20 Cocaine dependence, uncomplicated; F12.20 Cannabis dependence, uncomplicated; F17.210 Nicotine dependence, cigarettes, uncomplicated; F19.24 Other psychoactive substance dependence with psychoactive substance-induced mood disorder; F20.9 Schizophrenia, unspecified; F41.9 Anxiety disorder, unspecified; F32.A Depression, unspecified; E78.5 Hyperlipidemia, unspecified; I10 Essential (primary) hypertension; K21.9 Gastro-esophageal reflux disease without esophagitis; M54.50 Low back pain, unspecified; G89.29 Other chronic pain; Z86.59 Personal history of other mental and behavioral disorders; Z28.310 Unvaccinated for COVID-19; Z28.9 Immunization not carried out for unspecified reason
CPT/HCPCS: 36415; 80053; 80061; 85027; 86780; 87635; 87811; 93005; 93010

== ENCOUNTER 2023-05-17 11:28 | Inpatient (IN) | payer OTHER ==
[2023-05-17] MEDS ORDERED: COLLOIDAL OATMEAL 1 BAR EACH TP PRN (12:22)
[2023-05-17] MEDS ORDERED: NALOXONE HCL 0.4 MG/ML VIAL IVPUSH PRN (12:22)
[2023-05-17] MEDS ORDERED: NICOTINE POLACRILEX 4 MG GUM BUC PRN (12:22)
[2023-05-17] MEDS ORDERED: MAGNESIUM HYDROX 2400MG/30ML ORAL SUSPENSION 30 ML CUP PO PRN (12:22)
[2023-05-17] MEDS ORDERED: BENZONATATE 200 MG CAPSULE PO PRN (12:22)
[2023-05-17] MEDS ORDERED: IBUPROFEN 400 MG TABLET (FP) PO PRN (12:22)
[2023-05-17] MEDS ORDERED: LOPERAMIDE HCL 2 MG CAPSULE PO PRN (12:22)
[2023-05-17] MEDS ORDERED: ACETAMINOPHEN 325 MG TABLET (FP) PO PRN (12:22)
[2023-05-17] MEDS ORDERED: guaiFENesin 600 MG TABLET.ER (FP) PO PRN (12:22)
[2023-05-17] MEDS ORDERED: NICOTINE 14 MG/24 HOURS TOPICAL PATCH TD PRN (12:22)
[2023-05-17] MEDS ORDERED: AMMONIUM LACTATE 12% LOTION 225 GM BOTTLE TP PRN (12:22)
[2023-05-17] MEDS ORDERED: MAG HYDROX/AL HYDROX/SIMETH 30 ML UNIT-DOSE CUP PO PRN (12:22)
[2023-05-17] MEDS ORDERED: POLYETHYLENE GLYCOL (HEALTHYLAX) 3350 17 GM PACKET PO PRN (12:22)
[2023-05-17] MEDS ORDERED: NALOXONE HCL (KLOXXADO) 8 MG SPRAY NS PRN (12:22)
[2023-05-17] MEDS ORDERED: BENZOCAINE/MENTHOL (CHLORASEPTIC ) LOZENGE MM PRN (12:22)
[2023-05-17] MEDS: METOPROLOL TARTRATE 50 MG TABLET (FP) PO SCH (21:32)
[2023-05-17] MEDS: MELATONIN 5 MG TABLETS PO SCH (21:32)
[2023-05-17] MEDS: ATORVASTATIN CA 40 MG TABLET (FP) PO SCH (21:32)
[2023-05-17] MEDS: DIVALPROEX SODIUM 500 MG TABLET E.C. PO SCH (21:32)
[2023-05-17] MEDS: THIAMINE HCL 100 MG TABLET (FP) PO SCH (21:32)
[2023-05-18] MEDS: hydrOXYzine PAMOATE 25 MG CAPSULE (FP) PO PRN ×2 (07:00→22:26)
[2023-05-18] MEDS: FAMOTIDINE 20 MG TABLET PO SCH (10:59)
[2023-05-18] MEDS: LISINOPRIL 20 MG TABLET PO SCH (10:59)
[2023-05-18] MEDS: METOPROLOL TARTRATE 50 MG TABLET (FP) PO SCH ×2 (11:00→21:30)
[2023-05-18] MEDS: PRENATAL VITAMINS W/ FOLIC ACID TABLET (FP) PO SCH (11:00)
[2023-05-18] MEDS: ATORVASTATIN CA 40 MG TABLET (FP) PO SCH (21:30)
[2023-05-18] MEDS: DIVALPROEX SODIUM 500 MG TABLET E.C. PO SCH (21:30)
[2023-05-18] MEDS: THIAMINE HCL 100 MG TABLET (FP) PO SCH (21:30)
[2023-05-18] MEDS: MELATONIN 5 MG TABLETS PO SCH (21:30)
[2023-05-18] MEDS: METHOCARBAMOL 500 MG TABLET PO PRN (22:26)
[2023-05-18] MEDS: IBUPROFEN 600 MG TABLET (FP) PO PRN (22:27)
[2023-05-19] MEDS: PRENATAL VITAMINS W/ FOLIC ACID TABLET (FP) PO SCH (09:12)
[2023-05-19] MEDS: LISINOPRIL 20 MG TABLET PO SCH (10:29)
[2023-05-19] MEDS: METOPROLOL TARTRATE 50 MG TABLET (FP) PO SCH ×2 (10:29→21:17)
[2023-05-19] MEDS: FAMOTIDINE 20 MG TABLET PO SCH (10:29)
[2023-05-19] MEDS: THIAMINE HCL 100 MG TABLET (FP) PO SCH (21:17)
[2023-05-19] MEDS: DIVALPROEX SODIUM 500 MG TABLET E.C. PO SCH (21:17)
[2023-05-19] MEDS: ATORVASTATIN CA 40 MG TABLET (FP) PO SCH (21:17)
[2023-05-19] MEDS: MELATONIN 5 MG TABLETS PO SCH (21:18)
[2023-05-20] MEDS: LISINOPRIL 20 MG TABLET PO SCH (10:12)
[2023-05-20] MEDS: METOPROLOL TARTRATE 50 MG TABLET (FP) PO SCH ×2 (10:12→21:09)
[2023-05-20] MEDS: PRENATAL VITAMINS W/ FOLIC ACID TABLET (FP) PO SCH (10:12)
[2023-05-20] MEDS: FAMOTIDINE 20 MG TABLET PO SCH (10:12)
[2023-05-20] MEDS: hydrOXYzine PAMOATE 25 MG CAPSULE (FP) PO PRN (12:21)
[2023-05-20] MEDS: METHOCARBAMOL 500 MG TABLET PO PRN ×2 (12:21→21:08)
[2023-05-20] MEDS: MELATONIN 5 MG TABLETS PO SCH (21:07)
[2023-05-20] MEDS: THIAMINE HCL 100 MG TABLET (FP) PO SCH (21:07)
[2023-05-20] MEDS: DIVALPROEX SODIUM 500 MG TABLET E.C. PO SCH (21:08)
[2023-05-20] MEDS: ATORVASTATIN CA 40 MG TABLET (FP) PO SCH (21:09)
[2023-05-21] MEDS: hydrOXYzine PAMOATE 25 MG CAPSULE (FP) PO PRN (06:11)
[2023-05-21] MEDS: FAMOTIDINE 20 MG TABLET PO SCH (09:56)
[2023-05-21] MEDS: LISINOPRIL 20 MG TABLET PO SCH ×2 (09:56→12:56)
[2023-05-21] MEDS: PRENATAL VITAMINS W/ FOLIC ACID TABLET (FP) PO SCH (09:56)
[2023-05-21] MEDS: METOPROLOL TARTRATE 50 MG TABLET (FP) PO SCH ×2 (09:57→21:06)
[2023-05-21] MEDS: RIFAXIMIN 550 MG TABLET PO SCH ×2 (12:55→21:05)
[2023-05-21] MEDS: LACTULOSE 20 GM/30 ML UDC (FOR ORAL USE ONLY) PO SCH ×2 (13:13→21:06)
[2023-05-21] MEDS: ATORVASTATIN CA 40 MG TABLET (FP) PO SCH (21:05)
[2023-05-21] MEDS: THIAMINE HCL 100 MG TABLET (FP) PO SCH (21:05)
[2023-05-21] MEDS: DIVALPROEX SODIUM 500 MG TABLET E.C. PO SCH (21:06)
[2023-05-21] MEDS: risperiDONE 2 MG TABLET PO SCH (21:06)
[2023-05-21] MEDS: MELATONIN 5 MG TABLETS PO SCH (21:06)
[2023-05-22] MEDS: hydrOXYzine PAMOATE 25 MG CAPSULE (FP) PO PRN (06:36)
[2023-05-22] MEDS: LACTULOSE 20 GM/30 ML UDC (FOR ORAL USE ONLY) PO SCH ×3 (06:36→21:40)
[2023-05-22] MEDS: IBUPROFEN 600 MG TABLET (FP) PO PRN (06:37)
[2023-05-22] MEDS: METOPROLOL TARTRATE 50 MG TABLET (FP) PO SCH ×2 (10:51→21:40)
[2023-05-22] MEDS: FAMOTIDINE 20 MG TABLET PO SCH (10:52)
[2023-05-22] MEDS: PRENATAL VITAMINS W/ FOLIC ACID TABLET (FP) PO SCH (10:52)
[2023-05-22] MEDS: LISINOPRIL 20 MG TABLET PO SCH (10:52)
[2023-05-22] MEDS: RIFAXIMIN 550 MG TABLET PO SCH ×2 (10:53→21:41)
[2023-05-22 12:00] LABS: INR 1.01 (0.83-1.09); PROTHROMBIN TIME (PATIENT) 11.7 SEC (9.7-13.0)
[2023-05-22] MEDS: risperiDONE 2 MG TABLET PO SCH (21:39)
[2023-05-22] MEDS: THIAMINE HCL 100 MG TABLET (FP) PO SCH (21:39)
[2023-05-22] MEDS: ATORVASTATIN CA 40 MG TABLET (FP) PO SCH (21:39)
[2023-05-22] MEDS: DIVALPROEX SODIUM 500 MG TABLET E.C. PO SCH (21:39)
[2023-05-22] MEDS: MELATONIN 5 MG TABLETS PO SCH (21:41)
[2023-05-23] MEDS: LACTULOSE 20 GM/30 ML UDC (FOR ORAL USE ONLY) PO SCH ×3 (06:20→21:11)
[2023-05-23] MEDS: FAMOTIDINE 20 MG TABLET PO SCH (10:59)
[2023-05-23] MEDS: METOPROLOL TARTRATE 50 MG TABLET (FP) PO SCH ×2 (11:00→21:12)
[2023-05-23] MEDS: LISINOPRIL 20 MG TABLET PO SCH (11:00)
[2023-05-23] MEDS: PRENATAL VITAMINS W/ FOLIC ACID TABLET (FP) PO SCH (11:00)
[2023-05-23] MEDS: RIFAXIMIN 550 MG TABLET PO SCH ×2 (11:00→21:12)
[2023-05-23] MEDS: risperiDONE 2 MG TABLET PO SCH (21:12)
[2023-05-23] MEDS: ATORVASTATIN CA 40 MG TABLET (FP) PO SCH (21:12)
[2023-05-23] MEDS: THIAMINE HCL 100 MG TABLET (FP) PO SCH (21:12)
[2023-05-23] MEDS: MELATONIN 5 MG TABLETS PO SCH (21:12)
[2023-05-23] MEDS: DIVALPROEX SODIUM 500 MG TABLET E.C. PO SCH (21:13)
[2023-05-24] MEDS: LACTULOSE 20 GM/30 ML UDC (FOR ORAL USE ONLY) PO SCH ×3 (06:35→21:27)
[2023-05-24] MEDS: RIFAXIMIN 550 MG TABLET PO SCH ×2 (09:17→21:27)
[2023-05-24] MEDS: LISINOPRIL 20 MG TABLET PO SCH (09:17)
[2023-05-24] MEDS: PRENATAL VITAMINS W/ FOLIC ACID TABLET (FP) PO SCH (09:17)
[2023-05-24] MEDS: METOPROLOL TARTRATE 50 MG TABLET (FP) PO SCH ×2 (09:18→21:28)
[2023-05-24] MEDS: FAMOTIDINE 20 MG TABLET PO SCH (09:18)
[2023-05-24] MEDS: THIAMINE HCL 100 MG TABLET (FP) PO SCH (21:27)
[2023-05-24] MEDS: DIVALPROEX SODIUM 500 MG TABLET E.C. PO SCH (21:27)
[2023-05-24] MEDS: risperiDONE 2 MG TABLET PO SCH (21:27)
[2023-05-24] MEDS: ATORVASTATIN CA 40 MG TABLET (FP) PO SCH (21:27)
[2023-05-24] MEDS: MELATONIN 5 MG TABLETS PO SCH (21:28)
[2023-05-25] MEDS: LACTULOSE 20 GM/30 ML UDC (FOR ORAL USE ONLY) PO SCH ×3 (06:39→21:11)
[2023-05-25] MEDS: RIFAXIMIN 550 MG TABLET PO SCH ×2 (09:06→21:11)
[2023-05-25] MEDS: PRENATAL VITAMINS W/ FOLIC ACID TABLET (FP) PO SCH (09:06)
[2023-05-25] MEDS: FAMOTIDINE 20 MG TABLET PO SCH (09:06)
[2023-05-25] MEDS: LISINOPRIL 20 MG TABLET PO SCH (09:06)
[2023-05-25] MEDS: METOPROLOL TARTRATE 50 MG TABLET (FP) PO SCH ×2 (09:07→21:11)
[2023-05-25] MEDS: DIVALPROEX SODIUM 500 MG TABLET E.C. PO SCH (21:10)
[2023-05-25] MEDS: MELATONIN 5 MG TABLETS PO SCH (21:11)
[2023-05-25] MEDS: risperiDONE 2 MG TABLET PO SCH (21:11)
[2023-05-25] MEDS: THIAMINE HCL 100 MG TABLET (FP) PO SCH (21:11)
[2023-05-25] MEDS: ATORVASTATIN CA 40 MG TABLET (FP) PO SCH (21:11)
[2023-05-26] MEDS: LACTULOSE 20 GM/30 ML UDC (FOR ORAL USE ONLY) PO SCH ×3 (07:12→21:07)
[2023-05-26 07:35] VITALS: TEMP 97.1
[2023-05-26] MEDS: PRENATAL VITAMINS W/ FOLIC ACID TABLET (FP) PO SCH (10:07)
[2023-05-26] MEDS: METOPROLOL TARTRATE 50 MG TABLET (FP) PO SCH ×2 (10:07→21:07)
[2023-05-26] MEDS: LISINOPRIL 20 MG TABLET PO SCH (10:07)
[2023-05-26] MEDS: FAMOTIDINE 20 MG TABLET PO SCH (10:08)
[2023-05-26] MEDS: RIFAXIMIN 550 MG TABLET PO SCH ×2 (10:08→21:07)
[2023-05-26] MEDS: DIVALPROEX SODIUM 500 MG TABLET E.C. PO SCH (21:07)
[2023-05-26] MEDS: THIAMINE HCL 100 MG TABLET (FP) PO SCH (21:07)
[2023-05-26] MEDS: risperiDONE 2 MG TABLET PO SCH (21:07)
[2023-05-26] MEDS: ATORVASTATIN CA 40 MG TABLET (FP) PO SCH (21:07)
[2023-05-26] MEDS: MELATONIN 5 MG TABLETS PO SCH (21:07)
[2023-05-27] MEDS: LACTULOSE 20 GM/30 ML UDC (FOR ORAL USE ONLY) PO SCH ×3 (07:04→21:02)
[2023-05-27] MEDS: RIFAXIMIN 550 MG TABLET PO SCH ×2 (09:40→21:01)
[2023-05-27] MEDS: PRENATAL VITAMINS W/ FOLIC ACID TABLET (FP) PO SCH (09:40)
[2023-05-27] MEDS: METOPROLOL TARTRATE 50 MG TABLET (FP) PO SCH ×2 (09:40→21:02)
[2023-05-27] MEDS: LISINOPRIL 20 MG TABLET PO SCH (09:41)
[2023-05-27] MEDS: FAMOTIDINE 20 MG TABLET PO SCH (09:41)
[2023-05-27] MEDS: IBUPROFEN 600 MG TABLET (FP) PO PRN (09:42)
[2023-05-27] MEDS: MELATONIN 5 MG TABLETS PO SCH (21:01)
[2023-05-27] MEDS: DIVALPROEX SODIUM 500 MG TABLET E.C. PO SCH (21:01)
[2023-05-27] MEDS: ATORVASTATIN CA 40 MG TABLET (FP) PO SCH (21:01)
[2023-05-27] MEDS: risperiDONE 2 MG TABLET PO SCH (21:01)
[2023-05-27] MEDS: THIAMINE HCL 100 MG TABLET (FP) PO SCH (21:01)
[2023-05-28] MEDS: LACTULOSE 20 GM/30 ML UDC (FOR ORAL USE ONLY) PO SCH ×3 (07:42→21:33)
[2023-05-28] MEDS: FAMOTIDINE 20 MG TABLET PO SCH (09:59)
[2023-05-28] MEDS: LISINOPRIL 20 MG TABLET PO SCH (09:59)
[2023-05-28] MEDS: RIFAXIMIN 550 MG TABLET PO SCH ×2 (09:59→21:32)
[2023-05-28] MEDS: METOPROLOL TARTRATE 50 MG TABLET (FP) PO SCH ×2 (09:59→21:33)
[2023-05-28] MEDS: PRENATAL VITAMINS W/ FOLIC ACID TABLET (FP) PO SCH (09:59)
[2023-05-28] MEDS: risperiDONE 2 MG TABLET PO SCH (21:32)
[2023-05-28] MEDS: DIVALPROEX SODIUM 500 MG TABLET E.C. PO SCH (21:32)
[2023-05-28] MEDS: ATORVASTATIN CA 40 MG TABLET (FP) PO SCH (21:33)
[2023-05-28] MEDS: MELATONIN 5 MG TABLETS PO SCH (21:33)
[2023-05-28] MEDS: THIAMINE HCL 100 MG TABLET (FP) PO SCH (21:33)
[2023-05-29] MEDS: LACTULOSE 20 GM/30 ML UDC (FOR ORAL USE ONLY) PO SCH ×3 (06:53→21:20)
[2023-05-29] MEDS: METOPROLOL TARTRATE 50 MG TABLET (FP) PO SCH ×2 (10:14→21:21)
[2023-05-29] MEDS: LISINOPRIL 20 MG TABLET PO SCH (10:14)
[2023-05-29] MEDS: FAMOTIDINE 20 MG TABLET PO SCH (10:14)
[2023-05-29] MEDS: PRENATAL VITAMINS W/ FOLIC ACID TABLET (FP) PO SCH (10:14)
[2023-05-29] MEDS: hydrOXYzine PAMOATE 25 MG CAPSULE (FP) PO PRN (10:15)
[2023-05-29 10:39] VITALS: RESP 18
[2023-05-29] MEDS: MELATONIN 5 MG TABLETS PO SCH (21:20)
[2023-05-29] MEDS: THIAMINE HCL 100 MG TABLET (FP) PO SCH (21:20)
[2023-05-29] MEDS: risperiDONE 2 MG TABLET PO SCH (21:20)
[2023-05-29] MEDS: DIVALPROEX SODIUM 500 MG TABLET E.C. PO SCH (21:20)
[2023-05-29] MEDS: ATORVASTATIN CA 40 MG TABLET (FP) PO SCH (21:20)
[2023-05-30] MEDS: LACTULOSE 20 GM/30 ML UDC (FOR ORAL USE ONLY) PO SCH ×3 (07:12→21:13)
[2023-05-30] MEDS: LISINOPRIL 20 MG TABLET PO SCH (09:35)
[2023-05-30] MEDS: FAMOTIDINE 20 MG TABLET PO SCH (09:35)
[2023-05-30] MEDS: PRENATAL VITAMINS W/ FOLIC ACID TABLET (FP) PO SCH (09:35)
[2023-05-30] MEDS: METOPROLOL TARTRATE 50 MG TABLET (FP) PO SCH ×2 (09:35→21:14)
[2023-05-30 21:13] VITALS: BP 149/84; PULSE 89
[2023-05-30] MEDS: ATORVASTATIN CA 40 MG TABLET (FP) PO SCH (21:13)
[2023-05-30] MEDS: MELATONIN 5 MG TABLETS PO SCH (21:13)
[2023-05-30] MEDS: DIVALPROEX SODIUM 500 MG TABLET E.C. PO SCH (21:13)
[2023-05-30] MEDS: risperiDONE 2 MG TABLET PO SCH (21:13)
[2023-05-30] MEDS: THIAMINE HCL 100 MG TABLET (FP) PO SCH (21:14)
[2023-05-31] MEDS: LACTULOSE 20 GM/30 ML UDC (FOR ORAL USE ONLY) PO SCH (07:09)
== END 2023-05-31 08:45 | disposition home or self-care (01) | DRG 772 ==
LOC: YASAS 11:28 → Y3W 11:30
PROVIDERS: ADMIT Allergy & Immunology; ATTEND Psychiatry & Neurology Pain Medicine
PROC: HZ42ZZZ Group Counseling for Substance Abuse Treatment, Cognitive-Behavioral (ICD-10-PCS; principal; 2023-05-17)
DX: F10.20 Alcohol dependence, uncomplicated (principal); F14.20 Cocaine dependence, uncomplicated; F17.210 Nicotine dependence, cigarettes, uncomplicated; F19.282 Other psychoactive substance dependence with psychoactive substance-induced sleep disorder; F20.9 Schizophrenia, unspecified; F43.10 Post-traumatic stress disorder, unspecified; E72.20 Disorder of urea cycle metabolism, unspecified; E78.00 Pure hypercholesterolemia, unspecified; I10 Essential (primary) hypertension; K21.9 Gastro-esophageal reflux disease without esophagitis; M54.50 Low back pain, unspecified; G89.29 Other chronic pain
CPT/HCPCS: 36415; 80164; 82140; 85610; 86803

== ENCOUNTER 2023-06-19 12:23 | Inpatient (IN) | payer OTHER ==
[2023-06-19 13:08] VITALS: BMI 34.8
[2023-06-19] MEDS ORDERED: NICOTINE POLACRILEX 4 MG GUM BUC PRN (15:27)
[2023-06-19] MEDS ORDERED: MAGNESIUM HYDROX 2400MG/30ML ORAL SUSPENSION 30 ML CUP PO PRN (15:27)
[2023-06-19] MEDS ORDERED: POLYETHYLENE GLYCOL (HEALTHYLAX) 3350 17 GM PACKET PO PRN (15:27)
[2023-06-19] MEDS ORDERED: guaiFENesin 600 MG TABLET.ER (FP) PO PRN (15:27)
[2023-06-19] MEDS ORDERED: ONDANSETRON *ODT* 4 MG TABLET SL PRN (15:27)
[2023-06-19] MEDS ORDERED: NALOXONE HCL (KLOXXADO) 8 MG SPRAY NS PRN (15:27)
[2023-06-19] MEDS ORDERED: IBUPROFEN 400 MG TABLET (FP) PO PRN (15:27)
[2023-06-19] MEDS ORDERED: BENZOCAINE/MENTHOL (CHLORASEPTIC ) LOZENGE MM PRN (15:27)
[2023-06-19] MEDS ORDERED: hydrOXYzine PAMOATE 25 MG CAPSULE (FP) PO PRN (15:27)
[2023-06-19] MEDS ORDERED: DICYCLOMINE HCL 10 MG CAPSULE PO PRN (15:27)
[2023-06-19] MEDS ORDERED: LOPERAMIDE HCL 2 MG CAPSULE PO PRN (15:27)
[2023-06-19] MEDS ORDERED: NALOXONE HCL 0.4 MG/ML VIAL IM PRN (15:27)
[2023-06-19] MEDS ORDERED: BISMUTH SUBSALICYLATE 262 MG/15 ML BTL PO PRN (15:27)
[2023-06-19] MEDS ORDERED: BENZONATATE 200 MG CAPSULE PO PRN (15:27)
[2023-06-19] MEDS ORDERED: ACETAMINOPHEN 325 MG TABLET (FP) PO PRN (15:27)
[2023-06-19] MEDS ORDERED: MAG HYDROX/AL HYDROX/SIMETH 30 ML UNIT-DOSE CUP PO PRN (15:27)
[2023-06-19] MEDS ORDERED: IBUPROFEN 600 MG TABLET (FP) PO PRN (15:27)
[2023-06-19] MEDS ORDERED: MELATONIN 5 MG TABLETS PO SCH (22:00)
[2023-06-19] MEDS: THIAMINE HCL 100 MG TABLET (FP) PO SCH (22:39)
[2023-06-19] MEDS: METHOCARBAMOL 500 MG TABLET PO PRN (22:40)
[2023-06-20] MEDS ORDERED: chlordiazePOXIDE HCL 25 MG CAPSULE PO PRN (09:07)
[2023-06-20] MEDS: NICOTINE 21 MG/24 HOURS TOPICAL PATCH TD SCH (10:21)
[2023-06-20] MEDS: PRENATAL VITAMINS W/ FOLIC ACID TABLET (FP) PO SCH (10:21)
[2023-06-20] MEDS: LISINOPRIL 20 MG TABLET PO SCH (10:24)
[2023-06-20] MEDS: chlordiazePOXIDE HCL 25 MG CAPSULE PO SCH ×3 (10:24→22:53)
[2023-06-20] MEDS: FAMOTIDINE 20 MG TABLET PO SCH (10:24)
[2023-06-20] MEDS: METOPROLOL TARTRATE 25 MG TABLET (FP) PO SCH ×2 (10:27→22:52)
[2023-06-20 10:42] LABS: HEMATOCRIT 36.7 % (35.4-49); HEMOGLOBIN 12.4 GM/dL (11.7-16.9); MCH 30.4 pg (25.7-33.7); MCHC 33.8 g/dl (32.0-35.9); MEAN CELL VOLUME 89.8 fl (80-96); MEAN PLT VOLUME 8.7 fl (7.5-11.1); PLATELET COUNT 292 10^3/uL (134-434); RBC 4.09 M/mm3 (4.00-5.60); RDW 14.2 % (11.9-15.9); WHITE BLOOD COUNT 4.5 K/mm3 (4.0-10.0)
[2023-06-20 10:50] LABS: ALBUMIN 2.9 g/dl (3.4-5.0); CALCIUM 8.4 mg/dL (8.5-10.1)
[2023-06-20 10:54] LABS: CREATININE 0.8 mg/dL (0.55-1.3)
[2023-06-20 10:55] LABS: TOT PROT 6.3 g/dl (6.4-8.2)
[2023-06-20 10:58] LABS: BILIRUBIN,TOTAL 0.1 mg/dL (0.2-1)
[2023-06-20] MEDS: traZODone HCL 50 MG TABLET (FP) PO SCH (22:52)
[2023-06-20] MEDS: DIVALPROEX SODIUM 500 MG TABLET E.C. PO SCH (22:52)
[2023-06-20] MEDS: THIAMINE HCL 100 MG TABLET (FP) PO SCH (22:52)
[2023-06-20] MEDS: risperiDONE 2 MG TABLET PO SCH (22:52)
[2023-06-21] MEDS: chlordiazePOXIDE HCL 25 MG CAPSULE PO SCH ×4 (05:44→22:55)
[2023-06-21] MEDS: LISINOPRIL 20 MG TABLET PO SCH (10:31)
[2023-06-21] MEDS: METOPROLOL TARTRATE 25 MG TABLET (FP) PO SCH ×2 (10:31→22:54)
[2023-06-21] MEDS: FAMOTIDINE 20 MG TABLET PO SCH (10:31)
[2023-06-21] MEDS: NICOTINE 21 MG/24 HOURS TOPICAL PATCH TD SCH (10:39)
[2023-06-21] MEDS: PRENATAL VITAMINS W/ FOLIC ACID TABLET (FP) PO SCH (10:39)
[2023-06-21] MEDS: risperiDONE 2 MG TABLET PO SCH (22:55)
[2023-06-21] MEDS: THIAMINE HCL 100 MG TABLET (FP) PO SCH (22:55)
[2023-06-21] MEDS: traZODone HCL 50 MG TABLET (FP) PO SCH (22:55)
[2023-06-21] MEDS: DIVALPROEX SODIUM 500 MG TABLET E.C. PO SCH (22:56)
[2023-06-22] MEDS: chlordiazePOXIDE HCL 10 MG CAPSULE PO SCH ×4 (05:53→22:59)
[2023-06-22] MEDS: NICOTINE 21 MG/24 HOURS TOPICAL PATCH TD SCH (10:52)
[2023-06-22] MEDS: PRENATAL VITAMINS W/ FOLIC ACID TABLET (FP) PO SCH (10:52)
[2023-06-22] MEDS: FAMOTIDINE 20 MG TABLET PO SCH (10:52)
[2023-06-22] MEDS: METOPROLOL TARTRATE 25 MG TABLET (FP) PO SCH ×2 (10:52→22:59)
[2023-06-22] MEDS: LISINOPRIL 20 MG TABLET PO SCH (10:52)
[2023-06-22] MEDS: DIVALPROEX SODIUM 500 MG TABLET E.C. PO SCH (22:57)
[2023-06-22] MEDS: METHOCARBAMOL 500 MG TABLET PO PRN (22:57)
[2023-06-22] MEDS: risperiDONE 2 MG TABLET PO SCH (22:57)
[2023-06-22] MEDS: THIAMINE HCL 100 MG TABLET (FP) PO SCH (22:57)
[2023-06-22] MEDS: traZODone HCL 50 MG TABLET (FP) PO SCH (22:58)
[2023-06-23] MEDS: chlordiazePOXIDE HCL 10 MG CAPSULE PO SCH ×2 (05:45→18:15)
[2023-06-23] MEDS: NICOTINE 21 MG/24 HOURS TOPICAL PATCH TD SCH (10:41)
[2023-06-23] MEDS: METOPROLOL TARTRATE 25 MG TABLET (FP) PO SCH ×2 (10:41→22:44)
[2023-06-23] MEDS: LISINOPRIL 20 MG TABLET PO SCH (10:41)
[2023-06-23] MEDS: PRENATAL VITAMINS W/ FOLIC ACID TABLET (FP) PO SCH (10:41)
[2023-06-23] MEDS: FAMOTIDINE 20 MG TABLET PO SCH (10:41)
[2023-06-23] MEDS: THIAMINE HCL 100 MG TABLET (FP) PO SCH (22:44)
[2023-06-23] MEDS: risperiDONE 2 MG TABLET PO SCH (22:44)
[2023-06-23] MEDS: DIVALPROEX SODIUM 500 MG TABLET E.C. PO SCH (22:44)
[2023-06-23] MEDS: traZODone HCL 50 MG TABLET (FP) PO SCH (22:44)
[2023-06-24] MEDS ORDERED: chlordiazePOXIDE HCL 10 MG CAPSULE PO ONE (05:00)
[2023-06-24 07:07] VITALS: RESP 18
[2023-06-24] MEDS: LISINOPRIL 20 MG TABLET PO SCH (09:31)
[2023-06-24] MEDS: PRENATAL VITAMINS W/ FOLIC ACID TABLET (FP) PO SCH (09:31)
[2023-06-24] MEDS: METOPROLOL TARTRATE 25 MG TABLET (FP) PO SCH (09:31)
[2023-06-24] MEDS: FAMOTIDINE 20 MG TABLET PO SCH (09:31)
[2023-06-24] MEDS: NICOTINE 21 MG/24 HOURS TOPICAL PATCH TD SCH (09:32)
[2023-06-24 09:56] VITALS: BP 126/64; PULSE 75; TEMP 97.9
== END 2023-06-24 10:15 | disposition home or self-care (01) | DRG 774 ==
LOC: YASAS 12:23 → Y6N 16:39
PROVIDERS: ADMIT Allergy & Immunology; ATTEND Surgery
PROC: HZ2ZZZZ Detoxification Services for Substance Abuse Treatment (ICD-10-PCS; principal; 2023-06-19)
DX: F10.230 Alcohol dependence with withdrawal, uncomplicated (principal); F14.20 Cocaine dependence, uncomplicated; F12.20 Cannabis dependence, uncomplicated; F17.210 Nicotine dependence, cigarettes, uncomplicated; F19.282 Other psychoactive substance dependence with psychoactive substance-induced sleep disorder; F19.24 Other psychoactive substance dependence with psychoactive substance-induced mood disorder; F31.9 Bipolar disorder, unspecified; F20.9 Schizophrenia, unspecified; F43.10 Post-traumatic stress disorder, unspecified; E78.00 Pure hypercholesterolemia, unspecified; I10 Essential (primary) hypertension; K21.9 Gastro-esophageal reflux disease without esophagitis; M17.0 Bilateral primary osteoarthritis of knee; Z99.89 Dependence on other enabling machines and devices; Z86.69 Personal history of other diseases of the nervous system and sense organs; Z87.828 Personal history of other (healed) physical injury and trauma; Z28.310 Unvaccinated for COVID-19; Z28.9 Immunization not carried out for unspecified reason
CPT/HCPCS: 36415; 80053; 85027; 86780; 87635

== ENCOUNTER 2024-06-15 14:10 | Inpatient (IN) | payer OTHER ==
[2024-06-15 15:05] VITALS: BMI 31.4
[2024-06-15] MEDS ORDERED: BENZONATATE 200 MG CAPSULE PO PRN (20:27)
[2024-06-15] MEDS ORDERED: DICYCLOMINE HCL 10 MG CAPSULE PO PRN (20:27)
[2024-06-15] MEDS ORDERED: LOPERAMIDE HCL 2 MG CAPSULE PO PRN (20:27)
[2024-06-15] MEDS ORDERED: guaiFENesin 600 MG TABLET.ER (FP) PO PRN (20:27)
[2024-06-15] MEDS ORDERED: hydrOXYzine PAMOATE 25 MG CAPSULE (FP) PO PRN (20:27)
[2024-06-15] MEDS ORDERED: IBUPROFEN 400 MG TABLET (FP) PO PRN (20:27)
[2024-06-15] MEDS ORDERED: BISMUTH SUBSALICYLATE 524 MG/30 ML PO PRN (20:27)
[2024-06-15] MEDS ORDERED: NALOXONE (NARCAN) HCL 4 MG/0.1 ML SPRAY NS PRN (20:27)
[2024-06-15] MEDS ORDERED: BENZOCAINE/MENTHOL (CHLORASEPTIC ) LOZENGE MM PRN (20:27)
[2024-06-15] MEDS ORDERED: ACETAMINOPHEN 325 MG TABLET (FP) PO PRN (20:27)
[2024-06-15] MEDS ORDERED: NICOTINE POLACRILEX 2 MG GUM BUC PRN (20:27)
[2024-06-15] MEDS ORDERED: ONDANSETRON *ODT* 4 MG TABLET SL PRN (20:27)
[2024-06-15] MEDS ORDERED: MAGNESIUM HYDROX 2400MG/30ML ORAL SUSPENSION 30 ML CUP PO PRN (20:27)
[2024-06-15] MEDS ORDERED: MAG HYDROX/AL HYDROX/SIMETH 30 ML UNIT-DOSE CUP PO PRN (20:27)
[2024-06-15] MEDS ORDERED: POLYETHYLENE GLYCOL (HEALTHYLAX) 3350 17 GM PACKET PO PRN (20:27)
[2024-06-15] MEDS: NALOXONE (NYS OPIOID OVERDOSE PROGRAM) 4 MG/0.1 ML SPRAY NS ONE (21:44)
[2024-06-15] MEDS: IBUPROFEN 600 MG TABLET (FP) PO PRN (21:48)
[2024-06-15] MEDS: METHOCARBAMOL 500 MG TABLET PO PRN (21:48)
[2024-06-15] MEDS: THIAMINE 100 MG TABLET PO SCH (21:48)
[2024-06-15] MEDS: MELATONIN 5 MG TABLETS PO SCH (21:48)
[2024-06-16] MEDS: PRENATAL VITAMINS W/ FOLIC ACID TABLET (FP) PO SCH (10:29)
[2024-06-16] MEDS: FAMOTIDINE 20 MG TABLET PO SCH (10:29)
[2024-06-16] MEDS: LISINOPRIL 20 MG TABLET PO SCH (10:29)
[2024-06-16] MEDS: METOPROLOL TARTRATE 25 MG TABLET (FP) PO SCH (10:29)
[2024-06-16] MEDS: NICOTINE 14 MG/24 HOURS TOPICAL PATCH TD SCH (10:35)
[2024-06-16] MEDS ORDERED: NALOXONE (NYS OPIOID OVERDOSE PROGRAM) 4 MG/0.1 ML SPRAY NS PRN (14:09)
[2024-06-16 16:49] LABS: HEMATOCRIT 37.1 % (35.4-49); HEMOGLOBIN 12.2 GM/dL (11.7-16.9); MCH 29.8 pg (25.7-33.7); MCHC 32.8 g/dl (32.0-35.9); MEAN CELL VOLUME 90.9 fl (80-96); MEAN PLT VOLUME 9.4 fl (7.5-11.1); PLATELET COUNT 258 10^3/uL (134-434); RBC 4.08 M/mm3 (4.00-5.60); RDW 13.6 % (11.9-15.9); WHITE BLOOD COUNT 6.9 K/mm3 (4.0-10.0)
[2024-06-16 16:50] LABS: CHLORIDE 111 mmol/L (98-107); SODIUM 141 mmol/L (136-145)
[2024-06-16 16:56] LABS: CALCIUM 8.4 mg/dL (8.5-10.1)
[2024-06-16 16:57] LABS: ALBUMIN 2.8 g/dl (3.4-5.0); ANION GAP 4 mmol/L (4-13); BLOOD UREA NITROGEN 9.4 mg/dL (7-18); CO2 26 mmol/L (21-32); GLUCOSE,RANDOM 111 mg/dL (74-106)
[2024-06-16 16:59] LABS: CREATININE 0.7 mg/dL (0.55-1.3); SGOT/AST 27 U/L (15-37)
[2024-06-16 17:00] LABS: BILIRUBIN,TOTAL 0.3 mg/dL (0.2-1); SGPT/ALT 24 U/L (13-61)
[2024-06-16 17:01] LABS: TOT PROT 6.1 g/dl (6.4-8.2)
[2024-06-16 17:02] LABS: ALK PHOS 69 U/L (45-117)
[2024-06-16] MEDS: DIVALPROEX SODIUM 500 MG TABLET E.C. PO SCH (21:41)
[2024-06-16] MEDS: ATORVASTATIN CA 40 MG TABLET (FP) PO SCH (21:41)
[2024-06-16] MEDS: risperiDONE 1 MG TABLET PO SCH (21:44)
[2024-06-17 09:20] VITALS: BP 140/71; PULSE 81; RESP 20; TEMP 97.5
[2024-06-17] MEDS: DIVALPROEX SODIUM 250 MG TABLET E.C. PO SCH (10:18)
[2024-06-17] MEDS: risperiDONE 1 MG TABLET PO SCH (10:18)
== END 2024-06-17 12:37 | disposition other institution (70) | DRG 774 ==
LOC: YASAS 14:10 → Y3N 21:17
PROVIDERS: ADMIT Allergy & Immunology; ATTEND Surgery
PROC: HZ2ZZZZ Detoxification Services for Substance Abuse Treatment (ICD-10-PCS; principal; 2024-06-15)
DX: F10.230 Alcohol dependence with withdrawal, uncomplicated (principal); F14.20 Cocaine dependence, uncomplicated; F12.20 Cannabis dependence, uncomplicated; F17.210 Nicotine dependence, cigarettes, uncomplicated; F20.9 Schizophrenia, unspecified; F31.9 Bipolar disorder, unspecified; F19.24 Other psychoactive substance dependence with psychoactive substance-induced mood disorder; F41.9 Anxiety disorder, unspecified; F43.10 Post-traumatic stress disorder, unspecified; M17.0 Bilateral primary osteoarthritis of knee; K21.9 Gastro-esophageal reflux disease without esophagitis; Z62.810 Personal history of physical and sexual abuse in childhood; Z63.8 Other specified problems related to primary support group
CPT/HCPCS: 36415; 80053; 80305; 80307; 85027; 86780; 87811; 93005; 93010

== ENCOUNTER 2024-06-17 12:48 | Inpatient (IN) | payer OTHER ==
[2024-06-17] MEDS ORDERED: MAGNESIUM HYDROX 2400MG/30ML ORAL SUSPENSION 30 ML CUP PO PRN (13:47)
[2024-06-17] MEDS ORDERED: NALOXONE (NARCAN) HCL 4 MG/0.1 ML SPRAY NS PRN (13:47)
[2024-06-17] MEDS ORDERED: NICOTINE POLACRILEX 4 MG GUM BUC PRN (13:47)
[2024-06-17] MEDS ORDERED: BENZOCAINE/MENTHOL (CHLORASEPTIC ) LOZENGE MM PRN (13:47)
[2024-06-17] MEDS ORDERED: IBUPROFEN 400 MG TABLET (FP) PO PRN (13:47)
[2024-06-17] MEDS ORDERED: guaiFENesin 600 MG TABLET.ER (FP) PO PRN (13:47)
[2024-06-17] MEDS ORDERED: BENZONATATE 200 MG CAPSULE PO PRN (13:47)
[2024-06-17] MEDS ORDERED: LOPERAMIDE HCL 2 MG CAPSULE PO PRN (13:47)
[2024-06-17] MEDS ORDERED: POLYETHYLENE GLYCOL (HEALTHYLAX) 3350 17 GM PACKET PO PRN (13:47)
[2024-06-17] MEDS ORDERED: ACETAMINOPHEN 325 MG TABLET (FP) PO PRN (13:47)
[2024-06-17] MEDS ORDERED: NALOXONE HCL 0.4 MG/ML VIAL IVPUSH PRN (13:47)
[2024-06-17] MEDS ORDERED: MAG HYDROX/AL HYDROX/SIMETH 30 ML UNIT-DOSE CUP PO PRN (13:47)
[2024-06-17] MEDS ORDERED: NICOTINE POLACRILEX 4 MG LOZENGE BC PRN (13:47)
[2024-06-17] MEDS ORDERED: NICOTINE 14 MG/24 HOURS TOPICAL PATCH TD PRN (13:52)
[2024-06-17] MEDS: MELATONIN 5 MG TABLETS PO SCH (21:16)
[2024-06-17] MEDS: THIAMINE 100 MG TABLET PO SCH (21:16)
[2024-06-17] MEDS: ATORVASTATIN CA 40 MG TABLET (FP) PO SCH (21:16)
[2024-06-17] MEDS: METOPROLOL TARTRATE 25 MG TABLET (FP) PO SCH (21:16)
[2024-06-17] MEDS: DIVALPROEX SODIUM 500 MG TABLET E.C. PO SCH (21:16)
[2024-06-18] MEDS ORDERED: NICOTINE 14 MG/24 HOURS TOPICAL PATCH TD SCH (10:00)
[2024-06-18] MEDS: FAMOTIDINE 20 MG TABLET PO SCH (10:03)
[2024-06-18] MEDS: PRENATAL VITAMINS W/ FOLIC ACID TABLET (FP) PO SCH (10:03)
[2024-06-18] MEDS: LISINOPRIL 20 MG TABLET PO SCH (10:03)
[2024-06-20] MEDS: IBUPROFEN 600 MG TABLET (FP) PO PRN ×2 (09:50→22:04)
[2024-06-20] MEDS ORDERED: ACETAMINOPHEN 325 MG TABLET (FP) PO PRN ×2 (12:56→13:23)
[2024-06-20] MEDS: BACLOFEN 10 MG TABLET (FP) PO SCH (14:03)
[2024-06-20] MEDS: METHYL SALICYLATE/MENTHOL 30 GM TUBE TP SCH (14:03)
[2024-06-20] MEDS: GABAPENTIN 300 MG CAPSULE PO SCH (22:03)
[2024-06-20] MEDS: LISINOPRIL 20 MG TABLET PO SCH (22:03)
[2024-06-20] MEDS: METHOCARBAMOL 500 MG TABLET PO PRN (22:03)
[2024-06-21] MEDS: risperiDONE 2 MG TABLET PO SCH (21:25)
[2024-06-23 14:27] LABS: INR 0.92 (0.83-1.09); PROTHROMBIN TIME (PATIENT) 10.6 SEC (9.7-13.0)
[2024-06-27] MEDS: GABAPENTIN 300 MG CAPSULE PO SCH (15:30)
[2024-06-27] MEDS: LACTULOSE 20 GM/30 ML UDC (FOR ORAL USE ONLY) PO SCH (15:30)
[2024-07-02 09:05] VITALS: RESP 18
[2024-07-02] MEDS: hydrOXYzine PAMOATE 25 MG CAPSULE (FP) PO PRN (09:51)
[2024-07-04 06:26] VITALS: BP 122/87; PULSE 91; TEMP 97.5
== END 2024-07-04 06:50 | disposition home or self-care (01) | DRG 772 ==
LOC: YASAS 12:48 → Y3E 12:50
PROVIDERS: ADMIT Psychiatry & Neurology Pain Medicine; ATTEND Psychiatry & Neurology Pain Medicine
PROC: HZ42ZZZ Group Counseling for Substance Abuse Treatment, Cognitive-Behavioral (ICD-10-PCS; principal; 2024-06-17)
DX: F10.20 Alcohol dependence, uncomplicated (principal); F14.20 Cocaine dependence, uncomplicated; F12.20 Cannabis dependence, uncomplicated; F17.210 Nicotine dependence, cigarettes, uncomplicated; F19.280 Other psychoactive substance dependence with psychoactive substance-induced anxiety disorder; F19.282 Other psychoactive substance dependence with psychoactive substance-induced sleep disorder; F19.24 Other psychoactive substance dependence with psychoactive substance-induced mood disorder; F31.9 Bipolar disorder, unspecified; F20.9 Schizophrenia, unspecified; F43.10 Post-traumatic stress disorder, unspecified; F41.8 Other specified anxiety disorders; E78.5 Hyperlipidemia, unspecified; I10 Essential (primary) hypertension; K21.9 Gastro-esophageal reflux disease without esophagitis; M17.0 Bilateral primary osteoarthritis of knee
CPT/HCPCS: 36415; 80164; 82140; 82652; 82962; 83735; 85610; J0475

== ENCOUNTER 2024-07-09 11:25 | Observation (INO) | payer OTHER ==
[2024-07-09] MEDS ORDERED: oxyCODONE HCL 5 MG TABLET ONE (12:37)
[2024-07-09] MEDS ORDERED: KETOROLAC TROMETHAMINE 60 MG/2 ML VIAL ONE (12:37)
[2024-07-09] MEDS: oxyCODONE HCL 5 MG TABLET PO ONE (12:49)
[2024-07-09] MEDS: KETOROLAC TROMETHAMINE 60 MG/2 ML VIAL IM ONE (12:50)
[2024-07-09 13:32] LABS: BASO % 0.4 % (0-2.0); EOS % 0.6 % (0-4.5); HEMATOCRIT 37.6 % (35.4-49); HEMOGLOBIN 12.2 GM/dL (11.7-16.9); LYMPH % 15.4 % (8-40); MCH 29.7 pg (25.7-33.7); MCHC 32.5 g/dl (32.0-35.9); MEAN CELL VOLUME 91.3 fl (80-96); MEAN PLT VOLUME 8.2 fl (7.5-11.1); MONO % 11.4 % (3.8-10.2); NEUT % 72.2 % (42.8-82.8); PLATELET COUNT 242 10^3/uL (134-434); RBC 4.12 M/mm3 (4.00-5.60); RDW 13.9 % (11.9-15.9); WHITE BLOOD COUNT 9.7 K/mm3 (4.0-10.0)
[2024-07-09 13:53] LABS: CALCIUM 9.3 mg/dL (8.5-10.1)
[2024-07-09 13:54] LABS: ALBUMIN 3.5 g/dl (3.4-5.0); BLOOD UREA NITROGEN 25.5 mg/dL (7-18)
[2024-07-09 13:57] LABS: CREATININE 1.3 mg/dL (0.55-1.3)
[2024-07-09 13:58] LABS: BILIRUBIN,TOTAL 0.9 mg/dL (0.2-1)
[2024-07-09 13:59] LABS: TOT PROT 7.4 g/dl (6.4-8.2)
[2024-07-09 15:21] LABS: ERYTHROCYTE SEDIMENTATION RATE 22 mm/hr (0-20)
[2024-07-09 17:18] LABS: BF WBC & OTHER NUCLEATED CELLS 31821 /mm3
[2024-07-09] MEDS ORDERED: ACETAMINOPHEN 1000 MG/100 ML BAG IVPB PRN (17:44)
[2024-07-09] MEDS ORDERED: ENOXAPARIN NA (PORCINE) 30 MG/0.3 ML DISP.SYRIN SQ SCH (22:00)
[2024-07-09] MEDS: METOPROLOL TARTRATE 25 MG TABLET (FP) PO SCH (22:18)
[2024-07-09] MEDS: BACLOFEN 10 MG TABLET (FP) PO SCH (22:19)
[2024-07-09] MEDS: LISINOPRIL 20 MG TABLET PO SCH (22:19)
[2024-07-09] MEDS: GABAPENTIN 300 MG CAPSULE PO SCH (22:19)
[2024-07-09] MEDS: ATORVASTATIN CA 40 MG TABLET (FP) PO SCH (22:19)
[2024-07-09] MEDS: DIVALPROEX NA *ER* EXTEND REL 250 MG TABLET.SA PO SCH (22:19)
[2024-07-09] MEDS: risperiDONE 1 MG TABLET PO SCH (22:20)
[2024-07-09] MEDS ORDERED: ENOXAPARIN NA (PORCINE) 40 MG/0.4 ML DISP.SYRIN SQ SCH (22:26)
[2024-07-09] MEDS: ENOXAPARIN NA (PORCINE) 40 MG/0.4 ML DISP.SYRIN SQ SCH (22:29)
[2024-07-09 23:44] VITALS: BMI 44.4
[2024-07-10 10:20] LABS: HEMATOCRIT 33.4 % (35.4-49); MCH 30.2 pg (25.7-33.7); MCHC 32.9 g/dl (32.0-35.9); MEAN CELL VOLUME 91.8 fl (80-96); MEAN PLT VOLUME 8.5 fl (7.5-11.1); PLATELET COUNT 211 10^3/uL (134-434); RBC 3.64 M/mm3 (4.00-5.60); RDW 14.1 % (11.9-15.9); WHITE BLOOD COUNT 7.3 K/mm3 (4.0-10.0)
[2024-07-10 10:32] LABS: POTASSIUM 4.1 mmol/L (3.5-5.1)
[2024-07-10 10:39] LABS: ALBUMIN 2.8 g/dl (3.4-5.0); BLOOD UREA NITROGEN 14.6 mg/dL (7-18)
[2024-07-10 10:40] LABS: CALCIUM 8.6 mg/dL (8.5-10.1)
[2024-07-10 10:41] LABS: BILIRUBIN,TOTAL 0.4 mg/dL (0.2-1); TOT PROT 6.4 g/dl (6.4-8.2)
[2024-07-10 10:43] LABS: CREATININE 0.8 mg/dL (0.55-1.3)
[2024-07-10] MEDS: KETOROLAC TROMETHAMINE 30 MG/1 ML VIAL IM PRN (11:01)
[2024-07-10] MEDS: FAMOTIDINE 20 MG TABLET PO SCH (11:02)
[2024-07-10 12:03] LABS: METHADONE, UR NEGATIVE (NEGATIVE); OPIATES, URI NEGATIVE (NEGATIVE); PHENCYCLIDINE,URINE NEGATIVE (NEGATIVE); URINE BARBITURATES NEGATIVE (NEGATIVE)
[2024-07-10 12:04] LABS: URINE AMPHETAMINES NEGATIVE (NEGATIVE)
[2024-07-10 12:07] LABS: COCAINE, UR POSITIVE (NEGATIVE); URINE BENZODIAZEPINES NEGATIVE (NEGATIVE)
[2024-07-10] MEDS: ACETAMINOPHEN 325 MG TABLET (FP) PO SCH (16:54)
[2024-07-10] MEDS: LIDOCAINE 4% PATCH TP SCH (16:54)
[2024-07-10] MEDS: LIDOCAINE PATCH REMOVAL MC SCH (21:39)
[2024-07-10] MEDS: KETOROLAC TROMETHAMINE 15 MG/ML VIAL IVPUSH PRN (21:42)
[2024-07-11 11:08] LABS: BASO % 0.9 % (0-2.0); EOS % 2.1 % (0-4.5); HEMATOCRIT 36.2 % (35.4-49); HEMOGLOBIN 11.9 GM/dL (11.7-16.9); LYMPH % 27.1 % (8-40); MCH 29.9 pg (25.7-33.7); MEAN CELL VOLUME 90.5 fl (80-96); MEAN PLT VOLUME 8.8 fl (7.5-11.1); NEUT % 58.9 % (42.8-82.8); PLATELET COUNT 243 10^3/uL (134-434); RDW 13.7 % (11.9-15.9); WHITE BLOOD COUNT 7.4 K/mm3 (4.0-10.0)
[2024-07-11 11:13] LABS: POTASSIUM 4.5 mmol/L (3.5-5.1)
[2024-07-11 11:17] LABS: BLOOD UREA NITROGEN 16.1 mg/dL (7-18); CALCIUM 8.6 mg/dL (8.5-10.1)
[2024-07-11 11:20] LABS: CREATININE 0.8 mg/dL (0.55-1.3)
[2024-07-11 11:22] LABS: BILIRUBIN,TOTAL 0.4 mg/dL (0.2-1); TOT PROT 6.8 g/dl (6.4-8.2)
[2024-07-12 10:19] LABS: HEMATOCRIT 35.1 % (35.4-49); HEMOGLOBIN 11.9 GM/dL (11.7-16.9); MCH 30.4 pg (25.7-33.7); MCHC 33.8 g/dl (32.0-35.9); MEAN PLT VOLUME 8.6 fl (7.5-11.1); PLATELET COUNT 259 10^3/uL (134-434); RDW 13.5 % (11.9-15.9); WHITE BLOOD COUNT 5.8 K/mm3 (4.0-10.0)
[2024-07-12 10:22] LABS: POTASSIUM 4.3 mmol/L (3.5-5.1)
[2024-07-12 11:04] LABS: ALBUMIN 2.7 g/dl (3.4-5.0); CALCIUM 9.1 mg/dL (8.5-10.1)
[2024-07-12 11:05] LABS: BLOOD UREA NITROGEN 17.3 mg/dL (7-18)
[2024-07-12 11:08] LABS: CREATININE 0.9 mg/dL (0.55-1.3)
[2024-07-12 11:09] LABS: BILIRUBIN,TOTAL 0.2 mg/dL (0.2-1); TOT PROT 6.3 g/dl (6.4-8.2)
[2024-07-13 10:37] LABS: HEMATOCRIT 36.6 % (35.4-49); HEMOGLOBIN 12.3 GM/dL (11.7-16.9); MCH 30.5 pg (25.7-33.7); MCHC 33.6 g/dl (32.0-35.9); MEAN CELL VOLUME 90.9 fl (80-96); MEAN PLT VOLUME 8.6 fl (7.5-11.1); PLATELET COUNT 287 10^3/uL (134-434); RBC 4.02 M/mm3 (4.00-5.60); RDW 13.6 % (11.9-15.9); WHITE BLOOD COUNT 6.7 K/mm3 (4.0-10.0)
[2024-07-13 10:42] LABS: POTASSIUM 4.5 mmol/L (3.5-5.1)
[2024-07-13 10:43] LABS: CALCIUM 8.8 mg/dL (8.5-10.1)
[2024-07-13 10:44] LABS: ALBUMIN 2.8 g/dl (3.4-5.0); BLOOD UREA NITROGEN 16.1 mg/dL (7-18)
[2024-07-13 10:47] LABS: CREATININE 0.9 mg/dL (0.55-1.3)
[2024-07-13 10:49] LABS: BILIRUBIN,TOTAL 0.2 mg/dL (0.2-1); TOT PROT 6.4 g/dl (6.4-8.2)
[2024-07-14 09:57] LABS: HEMATOCRIT 37.2 % (35.4-49); MCH 29.6 pg (25.7-33.7); MCHC 32.4 g/dl (32.0-35.9); MEAN CELL VOLUME 91.4 fl (80-96); MEAN PLT VOLUME 8.1 fl (7.5-11.1); PLATELET COUNT 304 10^3/uL (134-434); RBC 4.06 M/mm3 (4.00-5.60); RDW 13.8 % (11.9-15.9); WHITE BLOOD COUNT 7.6 K/mm3 (4.0-10.0)
[2024-07-14 12:12] LABS: POTASSIUM 4.2 mmol/L (3.5-5.1)
[2024-07-14 12:14] LABS: ALBUMIN 2.9 g/dl (3.4-5.0)
[2024-07-14 12:15] LABS: BLOOD UREA NITROGEN 13.2 mg/dL (7-18)
[2024-07-14 12:17] LABS: CREATININE 0.9 mg/dL (0.55-1.3)
[2024-07-14 12:19] LABS: BILIRUBIN,TOTAL 0.2 mg/dL (0.2-1); TOT PROT 6.5 g/dl (6.4-8.2)
[2024-07-14] MEDS: ACETAMINOPHEN 325 MG TABLET (FP) PO SCH (18:17)
[2024-07-15 20:01] VITALS: RESP 18
[2024-07-16 14:22] VITALS: BP 126/71; PULSE 97; TEMP 97.3
== END 2024-07-16 15:10 | disposition home or self-care (01) ==
LOC: JER 11:25 → JERBED 17:00 → J6S 20:08
PROVIDERS: ADMIT Internal Medicine; ATTEND Internal Medicine
PROC: 3E0333Z Introduction of Anti-inflammatory into Peripheral Vein, Percutaneous Approach (ICD-10-PCS; principal; 2024-07-09)
PROC: 3E033NZ Introduction of Analgesics, Hypnotics, Sedatives into Peripheral Vein, Percutaneous Approach (ICD-10-PCS; 2024-07-09)
PROC: 3E0233Z Introduction of Anti-inflammatory into Muscle, Percutaneous Approach (ICD-10-PCS; 2024-07-09)
DX: M25.561 Pain in right knee (principal); M25.461 Effusion, right knee; F19.90 Other psychoactive substance use, unspecified, uncomplicated; M17.11 Unilateral primary osteoarthritis, right knee; F20.9 Schizophrenia, unspecified; Z72.0 Tobacco use; F43.10 Post-traumatic stress disorder, unspecified; K21.9 Gastro-esophageal reflux disease without esophagitis; I10 Essential (primary) hypertension; F31.9 Bipolar disorder, unspecified; F41.9 Anxiety disorder, unspecified; E66.01 Morbid (severe) obesity due to excess calories
CPT/HCPCS: 36415; 73560-TC-LT-FY; 73560-TC-RT-FY; 80053; 80307; 83036; 85025; 85027; 85651; 86140; 86618; 87070; 87075; 87205; 89060; 96372; 97116-GP; 97162-GP; 99285-25; G0378; J0475